=== PATIENT | male | born 1945 | race Caucasian/White ===

== ENCOUNTER 2017-03-09 13:48 | Outpatient (CLI) | payer OTHER ==
[2017-03-09 19:28] LABS: BILIRUBIN,TOTAL 0.6 mg/dL (0.2-1.0); CALCIUM 9.4 mg/dL (8.5-10.3); CREATININE 1.5 mg/dL (0.6-1.2); POTASSIUM 4.6 mmol/L (3.5-5.0); TOTAL PROTEIN 7.4 g/dL (6.7-8.2)
[2017-03-09 19:29] LABS: BASOPHILS % (AUTO) 0.3 %; EOSINOPHILS # (AUTO) 0.1 10^3/uL (0.0-0.7); EOSINOPHILS % (AUTO) 1.1 %; HCT - HEMATOCRIT 40.2 % (42.0-52.0); HGB - HEMOGLOBIN 13.5 g/dL (14.0-18.0); LYMPHOCYTES # (AUTO) 1.3 10^3/uL (1.5-3.5); LYMPHOCYTES % (AUTO) 18.1 %; MEAN CORPUSCULAR HEMOGLOBIN 33.1 pg (27.0-31.0); MEAN CORPUSCULAR HGB CONC 33.6 g/dL (32.0-36.0); MEAN CORPUSCULAR VOLUME 98.7 fL (80.0-94.0); MEAN PLATELET VOLUME 8.4 fL (7.4-11.4); MONOCYTES # (AUTO) 0.4 10^3/uL (0.0-1.0); MONOCYTES % (AUTO) 6.1 %; NEUTROPHILS # (AUTO) 5.3 10^3/uL (1.5-6.6); NEUTROPHILS % (AUTO) 74.4 %; RED BLOOD COUNT 4.08 10^6/uL (4.70-6.10); RED CELL DISTRIBUTION WIDTH 13.9 % (12.0-15.0); UNCORRECTED WHITE BLOOD COUNT 7.2 x10^3/uL; WHITE BLOOD COUNT 7.2 x10^3/uL (4.8-10.8)
== END 2017-03-09 13:49 | disposition home or self-care (01) ==
LOC: LAB.F 13:48
PROVIDERS: ATTEND Physician Assistant Medical
DX: N28.9 Disorder of kidney and ureter, unspecified (principal); R97.20 Elevated prostate specific antigen [PSA]; D64.9 Anemia, unspecified; K30 Functional dyspepsia
CPT/HCPCS: 36415; 80053; 82150; 83690; 84153; 85025

== ENCOUNTER 2017-03-12 13:27 | Outpatient (CLI) | payer OTHER ==
--- NOTE | 2017-03-12 15:28 | XRAY Report ---
TWO VIEW CHEST: 03/12/2017 CLINICAL INDICATION: Smoking history. COMPARISON: 07/20/2013. FINDINGS: Frontal and lateral views of the chest demonstrate a normal cardiac silhouette. The lungs are clear. No effusion or pneumothorax is present. IMPRESSION: NORMAL CHEST, UNCHANGED. JOB #: [id number] EXT JOB #:[id number]
== END 2017-03-12 13:28 | disposition home or self-care (01) ==
LOC: DI.S 13:27
PROVIDERS: ATTEND Physician Assistant Medical
DX: F17.200 Nicotine dependence, unspecified, uncomplicated (principal)
CPT/HCPCS: 71020

== ENCOUNTER 2017-03-16 12:27 | Outpatient (CLI) | payer OTHER ==
[2017-03-16] MEDS ORDERED: IOPAMIDOL-300 100 ML VIAL IVP ONE (14:26)
--- NOTE | 2017-03-16 17:07 | CT Report ---
CT ABDOMEN WITH AND WITHOUT CONTRAST: 03/16/2017 CLINICAL INDICATION: Elevated pancreatic enzymes, dyspepsia, weight loss. TECHNIQUE: Axial CT images of the abdomen were obtained prior to and following 50 mL of Isovue-300 i ntravenously, due to patient's renal dysfunction. In accordance with CT protocol optimization, one or more of the following dose reduction techniques w ere utilized for this exam: automated exposure control, adjustment of mA and/or KV based on patient size, or use of iterative reconstructive technique. COMPARISON: 10/07/2012 FINDINGS: Limited evaluation of the lung bases is unremarkable. Abdomen: On the unenhanced images, there is no evidence of pancreatic calcification. The kidneys de monstrate cysts bilaterally. No nephrolithiasis is seen. Following contrast administration, the pancreas demonstrates homogeneous enhancement. There is no ev idence of pancreatic mass. No peripancreatic inflammation is seen. The liver, spleen, and adrenal g lands appear unremarkable. The patient is status post cholecystectomy. No bowel dilatation, free ga s, or free fluid is present. There are anterior abdominal wall hernias, containing fat and nonobstru cted loops of colon. Osseous structures demonstrate degenerative changes. IMPRESSION: NORMAL PANCREAS. NO EVIDENCE OF PANCREATIC MASS. NO EVIDENT COMPLICATION OF PANCREATIT IS. JOB #: [id number] EXT JOB #:[id number]
== END 2017-03-16 12:28 | disposition home or self-care (01) ==
LOC: DI 12:27
PROVIDERS: ATTEND Physician Assistant Medical
DX: R74.8 Abnormal levels of other serum enzymes (principal)
CPT/HCPCS: 74170; Q9967

== ENCOUNTER 2017-04-09 12:41 | Outpatient (CLI) | payer OTHER ==
[2017-04-09 19:18] LABS: PT - PROTHROMBIN TIME 11.3 secs (9.9-12.6)
== END 2017-04-09 12:42 | disposition home or self-care (01) ==
LOC: LAB.F 12:41
PROVIDERS: ATTEND Internal Medicine
DX: R63.4 Abnormal weight loss (principal); N28.9 Disorder of kidney and ureter, unspecified; K30 Functional dyspepsia; R97.20 Elevated prostate specific antigen [PSA]; D64.9 Anemia, unspecified; R74.8 Abnormal levels of other serum enzymes; F17.200 Nicotine dependence, unspecified, uncomplicated; R63.0 Anorexia; I10 Essential (primary) hypertension
CPT/HCPCS: 36415; 80053; 82150; 83690; 84153; 84443; 85025; 85610

== ENCOUNTER 2017-04-26 08:00 | Outpatient (CLI) | payer MEDICARE ==
[2017-04-27 17:55] LABS: TEST RESULT REPORT (())
== END 2017-04-26 08:01 | disposition home or self-care (01) ==
LOC: LAB.R 08:00
PROVIDERS: ATTEND Physician Assistant
DX: R63.0 Anorexia (principal); R68.81 Early satiety; R63.4 Abnormal weight loss
CPT/HCPCS: 81599; 82705; 83630; 87045; 87046; 87177; 87209; 87329; 87493

== ENCOUNTER 2017-05-12 07:27 | Day surgery (SDC) | payer MEDICARE, OTHER ==
[2017-05-12] MEDS ORDERED: LACTATED RINGERS 1,000 ML IV ONE (07:54)
[2017-05-12] MEDS ORDERED: fentaNYL 100 MCG/2 ML VIAL IVP ONE (08:35)
[2017-05-12] MEDS ORDERED: MIDAZOLAM 2 MG/2 ML VIAL IVP ONE (08:35)
--- NOTE | 2017-05-12 09:20 | PROCEDURE REPORT ---
DATE OF PROCEDURE: 05/12/2017 00:00:00 PROCEDURE PERFORMED: EGD with biopsy. ENDOSCOPIST: Marin Graham MD. PRIMARY CARE: Lalit Guevara MD. INDICATIONS: Anorexia, weight loss, diarrhea, history of elevated amylase, lipase. After informed consent was obtained, the patient placed in the left lateral decubitus position. The v ideo upper scope was placed in the oropharynx. The patient helped swallow into the esophagus. The eso phagus, stomach, and duodenum were carefully examined. On withdrawal, retroflexed view of the GE junc tion was negative. The scope was removed. The patient tolerated the procedure well. BLOOD LOSS: None. COMPLICATIONS: None. MEDICATIONS: Fentanyl 100 mcg, Versed 5 mg IV titration. TOTAL SEDATION TIME: 11 minutes. FINDINGS 1. Completely normal esophagus with well defined squamocolumnar junction. 2. Mild gastritis with erythema and edema throughout, particularly in the body and evidence of some a dherent hematin flecks. Biopsies taken to rule out Helicobacter. No clear erosions in the stomach, th ough may have been a couple that were very superficial. 3. Normal duodenal bulb and sweep. Biopsy taken to rule out celiac. We will recheck amylase and lipase today. He may need to be considered for endoscopic ultrasound. It is not entirely clear to me whether his diarrhea started after his right hemicolectomy, which occurre d with cholecystectomy and therefore he could have some degree of bile salt diarrhea. Repeat colonosc opy may be necessary for biopsies. We will discuss further after we get results of amylase and lipase . JOB #: [id number] EXT JOB #:[id number]
[2017-05-12 09:35] LABS: AMYLASE 139 U/L (28-100); LIPASE 48 U/L (22-51)
[2017-05-12 09:45] VITALS: BP 128/78
== END 2017-05-12 07:28 | disposition home or self-care (01) ==
LOC: SDS 07:27
PROVIDERS: ATTEND Internal Medicine Gastroenterology
PROC: 0DB98ZX Excision of Duodenum, Via Natural or Artificial Opening Endoscopic, Diagnostic (ICD-10-PCS; principal; 2017-05-12 08:30)
DX: K29.70 Gastritis, unspecified, without bleeding (principal); R19.7 Diarrhea, unspecified; R79.89 Other specified abnormal findings of blood chemistry; Z86.010 Personal history of colon polyps; D64.9 Anemia, unspecified; F17.200 Nicotine dependence, unspecified, uncomplicated
CPT/HCPCS: 36415; 43239; 82150; 83690; 88305; J7120

== ENCOUNTER 2017-06-03 13:07 | Outpatient (CLI) | payer MEDICARE ==
[2017-06-03 18:36] LABS: AMYLASE 166 U/L (28-100); LIPASE 49 U/L (22-51)
== END 2017-06-03 13:08 | disposition home or self-care (01) ==
LOC: LAB.F 13:07
PROVIDERS: ATTEND Physician Assistant
DX: R63.0 Anorexia (principal); R68.81 Early satiety; R63.4 Abnormal weight loss
CPT/HCPCS: 36415; 82150; 83690

== ENCOUNTER 2017-08-30 07:52 | Outpatient (CLI) | payer MEDICARE ==
[2017-08-30 12:12] LABS: BASOPHILS % (AUTO) 0.4 %; EOSINOPHILS # (AUTO) 0.1 10^3/uL (0.0-0.7); EOSINOPHILS % (AUTO) 1.9 %; HGB - HEMOGLOBIN 13.5 g/dL (14.0-18.0); LYMPHOCYTES # (AUTO) 1.3 10^3/uL (1.5-3.5); LYMPHOCYTES % (AUTO) 20.9 %; MEAN CORPUSCULAR HGB CONC 33.9 g/dL (32.0-36.0); MEAN CORPUSCULAR VOLUME 94.6 fL (80.0-94.0); MEAN PLATELET VOLUME 8.5 fL (7.4-11.4); MONOCYTES # (AUTO) 0.5 10^3/uL (0.0-1.0); NEUTROPHILS # (AUTO) 4.5 10^3/uL (1.5-6.6); NEUTROPHILS % (AUTO) 69.8 %; PLT - PLATELET COUNT 267 10^3/uL (130-450); RED BLOOD COUNT 4.22 10^6/uL (4.70-6.10); RED CELL DISTRIBUTION WIDTH 13.6 % (12.0-15.0); WHITE BLOOD COUNT 6.4 x10^3/uL (4.8-10.8)
[2017-08-30 12:34] LABS: ALBUMIN 3.8 g/dL (3.2-5.5); ALBUMIN/GLOBULIN RATIO 1.1 (1.0-2.2); ALKALINE PHOSPHATASE 45 IU/L (42-121); ALT ALANINE AMINOTRANSFERASE 21 IU/L (10-60); AMYLASE 180 U/L (28-100); AST ASPARTATE AMINOTRANSFERASE 21 IU/L (10-42); BILIRUBIN,TOTAL 0.6 mg/dL (0.2-1.0); BUN - BLOOD UREA NITROGEN 31 mg/dL (6-20); CALCIUM 8.9 mg/dL (8.5-10.3); CARBON DIOXIDE - CO2 25 mmol/L (21-32); CHLORIDE 100 mmol/L (101-111); CREATININE 1.7 mg/dL (0.6-1.2); GFR - MDRD 40 (>89); GLUCOSE 78 mg/dL (70-100); SODIUM 135 mmol/L (135-145); TOTAL PROTEIN 7.2 g/dL (6.7-8.2)
[2017-08-30 12:37] LABS: CRP - C-REACTIVE PROTEIN < 1.0 mg/dL (0-1.0)
[2017-08-30 12:44] LABS: HB2 TOTAL 14.4 g/dL; HEMOGLOBIN A1C 0.46 g/dL; HEMOGLOBIN A1C % 5.1 % (4.6-6.2)
== END 2017-08-30 07:53 | disposition home or self-care (01) ==
LOC: LAB.F 07:52
PROVIDERS: ATTEND Internal Medicine Gastroenterology
DX: R63.4 Abnormal weight loss (principal)
CPT/HCPCS: 36415; 80053; 81599; 82150; 82533; 82570; 83036; 84443; 85025; 86140

== ENCOUNTER 2017-09-07 13:53 | Outpatient (CLI) | payer MEDICARE ==
[2017-09-07 18:07] LABS: AMYLASE 162 U/L (28-100); LIPASE 53 U/L (22-51)
== END 2017-09-07 13:54 | disposition home or self-care (01) ==
LOC: LAB.F 13:53
PROVIDERS: ATTEND Internal Medicine Gastroenterology
DX: R68.81 Early satiety (principal); R74.8 Abnormal levels of other serum enzymes
CPT/HCPCS: 36415; 82150; 83690

== ENCOUNTER 2017-12-12 15:34 | Outpatient (CLI) | payer MEDICARE | END 2017-12-12 15:35 | disposition critical access hospital (66) | LOC: EMS 15:34 | PROVIDERS: ATTEND Surgery | DX: S69.92XA Unspecified injury of left wrist, hand and finger(s), initial encounter (principal); R55 Syncope and collapse; W01.0XXA Fall on same level from slipping, tripping and stumbling without subsequent striking against object, initial encounter; Y93.89 Activity, other specified; Y92.39 Other specified sports and athletic area as the place of occurrence of the external cause | CPT/HCPCS: A0425; A0427 ==

== ENCOUNTER 2017-12-12 16:01 | Emergency (ER) | payer MEDICARE ==
--- NOTE | 2017-12-12 17:52 | XRAY Report ---
EXAM: LEFT WRIST RADIOGRAPHY EXAM DATE: 12/12/2017 05:27 PM. CLINICAL HISTORY: Wrist pain COMPARISON: None. TECHNIQUE: 4 views. FINDINGS: Bones: There is comminuted fractures through the distal left radius with intra-articular extent. No e vidence of significant angulation to the fracture. There is fracture through the ulnar styloid. Joints: Radiocarpal articulation is grossly maintained. Soft Tissues: No unexpected soft tissue findings. IMPRESSION: There is comminuted, impacted fracture through the distal left radius with intra-articula r extent. Radiocarpal articulation is grossly maintained. There is fracture through the ulnar styloid . [facility] Referring Provider Line: [phone] SITE ID: [id number]
[2017-12-12] MEDS ORDERED: MORPHINE 10 MG/ML VIAL IVP STA (17:54)
--- NOTE | 2017-12-12 18:54 | ED Physician Documentation ---
PD HPI UPPER EXT INJURY - Stated complaint Stated Complaint: FALL/ L WRIST PX - Chief complaint Chief Complaint: Ext Problem - History obtained from History obtained from: Patient - History of Present Illness Location: Left, Wrist Type of injury: Fall Where injury occurred: Other (he was fencing at a gym, lost balance going backward, and fell, trying to catch his fall with left hand. Paina t wrist.) Timing - onset: Today Timing - duration: Minutes (30) Timing - details: Abrupt onset, Still present Improved by: Immobilization Worsened by: Moving, Palpating Associated symptoms: Numbness (mild in middle 3 fingers), Other (he felt lightheaded and was noted to have low BP briefly after the injury when he first sat up, and was having a lot of pain at the time. BP improved promptly and he is feeling okay regarding lightheaded.). No: Weakness Contributing factors: No: Anticoagulated, Prior ortho surgery Similar symptoms before: Has not had sx before Recently seen: Not recently seen Review of Systems Constitutional: denies: Fever, Chills Nose: denies: Rhinorrhea / runny nose, Congestion Throat: denies: Sore throat Cardiac: denies: Chest pain / pressure, Palpitations Respiratory: denies: Dyspnea, Cough PD PAST MEDICAL HISTORY - Past Medical History Cardiovascular: Hypertension Respiratory: None Neuro: None Endocrine/Autoimmune: None GI: None : None HEENT: None Psych: None Musculoskeletal: Gout Derm: None - Past Surgical History Past Surgical History: Yes General: Cholecystectomy, Colonoscopy HEENT: Tonsil/Adenoidectomy - Present Medications Home Medications: Ambulatory Orders Medication Instructions Recorded Confirmed Folic Acid 800 mcg PO DAILY 12/28/12 05/12/17 Allopurinol 100 mg PO DAILY 08/08/13 05/12/17 Amlodipine Besylate 10 mg PO DAILY 07/12/14 05/12/17 Lisinopril 40 mg PO DAILY 07/12/14 05/12/17 Multivitamin [Multivitamins] 1 tab PO DAILY 07/12/14 05/12/17 Iron Polysaccharide Complex [Ezfe 800 mg PO DAILY 05/12/17 05/12/17 200] Melatonin 1 mg PO ONCE PRN 05/12/17 05/12/17 HYDROcod/ACETAM 5/325 [Homer 5/325] 1 tab PO Q6H PRN #25 tablet 12/12/17 - Allergies Allergies/Adverse Reactions: Allergies Allergy/AdvReac Type Severity Reaction Status Date / Time No Known Drug Allergies Allergy Verified 08/08/13 11:01 - Social History Does the pt smoke?: No Smoking Status: Never smoker Does the pt drink ETOH?: Yes Does the pt have substance abuse?: No - Immunizations Immunizations are current?: Yes - POLST Patient has POLST: No PD ED PE NORMAL - Vitals Vital signs reviewed: Yes - General General: Alert and oriented X 3, Well developed/nourished, Other (appears in some pain with any slight movement of wrist. Splint kept on for now. ) - HEENT HEENT: Atraumatic - Neck Neck: Supple, no meningeal sign, No bony TTP, No adenopathy - Cardiac Cardiac: RRR, No murmur - Respiratory Respiratory: Clear bilaterally - Abdomen Abdomen: Soft, Non tender - Derm Derm: Normal color, Warm and dry - Extremities Extremities: Other (swelling and tenderness of left wrist. Normal color, pulses and cap refill at fingers/wrist. Slight decreased sensation to touch of middle fingers. ) - Neuro Neuro: Alert and oriented X 3, No motor deficit, Normal speech Eye Opening: Spontaneous Motor: Obeys Commands Verbal: Oriented GCS Score: 15 - Psych Psych: Normal mood, Normal affect Results - Vitals Vitals: Vital Signs - 24 hr 12/12/17 12/12/17 12/12/17 16:03 18:16 19:35 Temperature 36.4 C L Heart Rate 69 76 82 Respiratory 16 15 18 Rate Blood Pressure 134/81 H 155/91 H 142/89 H O2 Saturation 99 99 98 Oxygen O2 Source Room air - Rads (name of study) left wrist Radiology: Prelim report reviewed (comminuted distal radius fracture, articular , with some shortening. Minimal angulation. ), EMP read contemporaneously Procedures - General procedure General procedure: hematoma block with 6 ml Lidocaine, with good improvement in the pain. - Splint (location) left wrist Splint applied by: Tech Type of splint: Fiberglass, Sugar tong Other: Patient tolerated well, No complications, Neurovascular intact, Sling provided PD MEDICAL DECISION MAKING - ED course Complexity details: reviewed results, considered differential, d/w patient, d/w e business consultant (Dr. Franco, ortho here director of undergraduate admissions, [place] [facility] [place]. I talked with [facility] referral physician, who arranged appt and potential surgery tomorrow AM, but patient was unable to get ride for then (was to be 7:45 tomorrow), so patient given Ortho office number to call tomorrow to set up appt. ) Departure - Departure Disposition: 01 Home, Self Care Clinical Impression: Accidental fall Qualifiers: Encounter type: initial encounter Qualified Code(s): W19.XXXA - Unspecified fall, initial encounter Distal radius fracture, left Qualifiers: Encounter type: initial encounter Fracture type: closed Fracture morphology: Colles' Qualified Code(s): S52.532A - Colles' fracture of left radius, initial encounter for closed fracture Condition: Stable Record reviewed to determine appropriate education?: Yes Instructions: ED Fx Wrist General Follow-Up: Taylor Panchal PA-C [Primary Care Provider] - Prescriptions: HYDROcod/ACETAM 5/325 [Homer 5/325] 1 tab PO Q6H PRN #25 tablet PRN Reason: Pain Comments: Keep the splint on and rest and elevate the wrist often. Use the sling for support of the arm. Ice to the area periodically. Call the orthopedic office tomorrow to arrange a follow-up appointment and specify that you were here in the ER and need urgent follow-up evaluation. Use Tylenol or ibuprofen if needed for pains. Add hydrocodone if needed for worse pain. Discharge Date/Time: 12/12/17 19:58
[2017-12-12] MEDS ORDERED: HYDROcod/ACET 5/325 Prepack 4 PO STA (19:22)
[2017-12-12 19:35] VITALS: BP 142/89
== END 2017-12-12 19:58 | disposition home or self-care (01) ==
LOC: EDUNIT# → ED 16:01
DX: S52.532A Colles' fracture of left radius, initial encounter for closed fracture (principal); W18.30XA Fall on same level, unspecified, initial encounter; Y93.89 Activity, other specified; Y92.39 Other specified sports and athletic area as the place of occurrence of the external cause
CPT/HCPCS: 29105; 96374; 99284

== ENCOUNTER 2017-12-17 11:11 | Outpatient (CLI) | payer MEDICARE ==
[2017-12-17 17:41] LABS: BASOPHILS % (AUTO) 0.4 %; EOSINOPHILS # (AUTO) 0.1 10^3/uL (0.0-0.7); EOSINOPHILS % (AUTO) 1.2 %; HGB - HEMOGLOBIN 12.9 g/dL (14.0-18.0); LYMPHOCYTES # (AUTO) 1.1 10^3/uL (1.5-3.5); LYMPHOCYTES % (AUTO) 12.7 %; MEAN CORPUSCULAR HEMOGLOBIN 31.4 pg (27.0-31.0); MEAN CORPUSCULAR HGB CONC 32.6 g/dL (32.0-36.0); MEAN CORPUSCULAR VOLUME 96.3 fL (80.0-94.0); MONOCYTES # (AUTO) 0.7 10^3/uL (0.0-1.0); MONOCYTES % (AUTO) 8.3 %; NEUTROPHILS # (AUTO) 6.6 10^3/uL (1.5-6.6); NEUTROPHILS % (AUTO) 77.4 %; PLT - PLATELET COUNT 309 10^3/uL (130-450); RED BLOOD COUNT 4.11 10^6/uL (4.70-6.10); RED CELL DISTRIBUTION WIDTH 13.4 % (12.0-15.0); WHITE BLOOD COUNT 8.6 x10^3/uL (4.8-10.8)
[2017-12-17 18:03] LABS: CALCIUM 9.2 mg/dL (8.5-10.3); CREATININE 1.3 mg/dL (0.6-1.2)
== END 2017-12-17 11:12 | disposition home or self-care (01) ==
LOC: LAB.F 11:11
PROVIDERS: ATTEND Orthopaedic Surgery
DX: Z01.812 Encounter for preprocedural laboratory examination (principal); S52.532A Colles' fracture of left radius, initial encounter for closed fracture; S52.572A Other intraarticular fracture of lower end of left radius, initial encounter for closed fracture
CPT/HCPCS: 36415; 80048; 85025

== ENCOUNTER 2017-12-21 08:50 | Day surgery (SDC) | payer MEDICARE ==
[2017-12-21] MEDS ORDERED: ceFAZolin 2 GM/50 ML 2 GM/50 ML BAG IV ONE (09:05)
[2017-12-21] MEDS ORDERED: LACTATED RINGERS 1,000 ML IV ONE ×2 (09:23→12:40)
[2017-12-21] MEDS ORDERED: SUCCINYLCHOLINE 200 MG/10 ML VIAL IVP ONE (11:22)
[2017-12-21] MEDS ORDERED: fentaNYL 100 MCG/2 ML VIAL IVP ONE (11:22)
[2017-12-21] MEDS ORDERED: DEXAMETHASONE 4 MG/ML VIAL IVP ONE (11:22)
[2017-12-21] MEDS ORDERED: MIDAZOLAM 2 MG/2 ML VIAL IVP ONE (11:22)
[2017-12-21] MEDS ORDERED: LIDOCAINE-MPF 2% 5 ML VIAL IM ONE (11:22)
[2017-12-21] MEDS ORDERED: HYDROmorphone 1 MG/ML SYRINGE IVP ONE (11:22)
[2017-12-21] MEDS ORDERED: ONDANSETRON 4 MG/2 ML VIAL IVP ONE (11:22)
[2017-12-21] MEDS: ROPIVACAINE 0.5% PF 20 ML AMPULE ONE ×2 (12:10→12:18)
[2017-12-21] MEDS: fentaNYL 100 MCG/2 ML VIAL ONE ×2 (13:20→13:25)
[2017-12-21] MEDS ORDERED: ROPIVACAINE 0.5% PF 20 ML AMPULE ONE (13:50)
[2017-12-21] MEDS ORDERED: DEXAMETHASONE 4 MG/ML VIAL ONE (13:50)
[2017-12-21 14:48] VITALS: BP 128/76
--- NOTE | 2017-12-22 02:51 | OPERATIVE REPORT ---
DATE OF SERVICE: 12/21/2017 Physician: Kai Duncan MD PREOPERATIVE DIAGNOSIS: Extremely comminuted and displaced intraarticular fracture of the left distal radius with minimum greater than 10 separate bone fragments involved. POSTOPERATIVE DIAGNOSIS: Extremely comminuted and displaced intraarticular fracture of the left distal radius with minimum greater than 10 separate bone fragments involved. PROCEDURE PERFORMED: Volar plate open reduction internal fixation of the left distal radius. SURGEON: Kai Duncan MD ANESTHESIA: General by Raya Moeller CRNA. INDICATIONS FOR SURGERY: Arnulfo is a 72-year-old male who suffered a severely comminuted left wrist fracture in a fall on an outstretched arm. He was found in clinic to have severe shortening and displacement of his fracture and multiple comminuted fragments. The patient desired treatment in the form of surgical open reduction internal fixation with the understanding that anatomic baptism would not be feasible and it would be a salvage operation to try to restore some alignment and length and hopefully better function of the wrist as an ultimate outcome. FINDINGS AT SURGERY: The patient's fracture was indeed found to be severely comminuted with disruption of periosteum around fracture fragments and free floating fragments of bone. The articular surface was severely impacted and there was foreshortening of the fracture. The radial styloid fragment was multiple pieces and widely displaced. The patient's reduction gain was mostly done with direct vision without stripping anything but the volar surface of the volar radius and using a freer and K-wires and other tools to try to align it and an acceptable reduction and length baptism were achieved with difficulty. DESCRIPTION OF OPERATIVE PROCEDURE: The patient was taken to the operating room and was given a general anesthetic. A tourniquet was placed on the patient's upper arm. The forearm and hand were sterilely prepped and draped in a standard fashion. The patient's limb was operated with a tourniquet pressure of 250 mmHg. A volar radial incision was made directly over the flexor carpi radialis tendon. This was approximately 4-1/2 inches in length and taken through skin and subcutaneous tissue down to the tendon itself. The tendon was retracted and below this the incision was made through the underlying sheath down to the soft tissues where a very large rent and old hematoma had collected in the tissue of the volar wrist. The degree of comminution was immediately encountered with bone fragments that were small, free floating, extracted and saved by the side. The reduction was attempted both closed before surgery and then again a reduction attempt was made by levering fragments with pressure directly on the volar surface in direct pressure with traction and molding and a more suitable reduction could be gained but not entirely anatomic and definitely with some offset in the articular surface and dorsal angulation. The DVR plate was applied to the volar surface and adjusted for length and initial distal screw was placed on the ulnar aspect of the wrist trying to construct a stable column of the radius onto which the other fragments could be attached in a semi-congruous fashion. This was the goal, but it was very hard to achieve and during the course of reduction, various tools were utilized including K-wire insertion, heavy suture tags to reduce fragments and hold them in position. Ultimately, the plate was able to be secured both proximal and distal, with baptism of length of the bone and some offset and dorsal tilt of the radius. It was elected to accept this. It was my opinion that a more anatomic baptism was not feasible. So once this was achieved and C-arm images were obtained that were satisfactory, the wrist was flushed, tourniquet deflated and bleeding controlled. Closure was with interrupted Vicryl subcutaneous and Monocryl closure of skin with Steri-Strips applied. The patient had deep infiltration of the fracture site with Marcaine with epinephrine and sterile dressings and a well-padded sugar-tong splint were applied. The patient was taken to the recovery room in stable condition. ESTIMATED BLOOD LOSS: About 20 mL. COMPLICATIONS: None. COUNTS: Sponge and needle counts correct. TOTAL TOURNIQUET TIME: Approximately 1 hour at 250 mmHg. TD: 12/21/2017 15:30
== END 2017-12-21 08:51 | disposition home or self-care (01) ==
LOC: SDS 08:50
PROVIDERS: ATTEND Orthopaedic Surgery
PROC: 0PSJ04Z Reposition Left Radius with Internal Fixation Device, Open Approach (ICD-10-PCS; principal; 2017-12-21 10:00)
DX: S52.572A Other intraarticular fracture of lower end of left radius, initial encounter for closed fracture (principal); W01.0XXA Fall on same level from slipping, tripping and stumbling without subsequent striking against object, initial encounter; Y93.59 Activity, other involving other sports and athletics played individually; F17.290 Nicotine dependence, other tobacco product, uncomplicated
CPT/HCPCS: 25609; C1713; J0690; J7120

== ENCOUNTER 2018-03-11 12:24 | Outpatient (CLI) | payer MEDICARE ==
[2018-03-11 17:27] LABS: BASOPHILS % (AUTO) 0.4 %; EOSINOPHILS # (AUTO) 0.1 10^3/uL (0.0-0.7); EOSINOPHILS % (AUTO) 0.7 %; HGB - HEMOGLOBIN 13.9 g/dL (14.0-18.0); LYMPHOCYTES # (AUTO) 1.1 10^3/uL (1.5-3.5); LYMPHOCYTES % (AUTO) 14.8 %; MEAN CORPUSCULAR HEMOGLOBIN 32.2 pg (27.0-31.0); MEAN CORPUSCULAR HGB CONC 33.4 g/dL (32.0-36.0); MEAN CORPUSCULAR VOLUME 96.5 fL (80.0-94.0); MEAN PLATELET VOLUME 8.1 fL (7.4-11.4); MONOCYTES # (AUTO) 0.5 10^3/uL (0.0-1.0); MONOCYTES % (AUTO) 6.3 %; NEUTROPHILS # (AUTO) 5.7 10^3/uL (1.5-6.6); NEUTROPHILS % (AUTO) 77.8 %; PLT - PLATELET COUNT 288 10^3/uL (130-450); RED CELL DISTRIBUTION WIDTH 14.9 % (12.0-15.0); WHITE BLOOD COUNT 7.4 x10^3/uL (4.8-10.8)
== END 2018-03-11 12:25 | disposition home or self-care (01) ==
LOC: LAB.F 12:24
PROVIDERS: ATTEND Physician Assistant Medical
DX: D64.9 Anemia, unspecified (principal)
CPT/HCPCS: 36415; 85025

== ENCOUNTER 2018-04-01 13:54 | Outpatient (CLI) | payer MEDICARE ==
[2018-04-01 18:17] LABS: AMYLASE 165 U/L (28-100); LIPASE 50 U/L (22-51)
== END 2018-04-01 13:55 | disposition home or self-care (01) ==
LOC: LAB.F 13:54
PROVIDERS: ATTEND Internal Medicine
DX: R63.4 Abnormal weight loss (principal)
CPT/HCPCS: 36415; 82150; 83690

== ENCOUNTER 2018-06-15 11:41 | Outpatient (CLI) | payer MEDICARE ==
[2018-06-15 17:44] LABS: BASOPHILS # (AUTO) 0.1 10^3/uL (0.0-0.1); BASOPHILS % (AUTO) 0.7 %; EOSINOPHILS # (AUTO) 0.1 10^3/uL (0.0-0.7); EOSINOPHILS % (AUTO) 1.1 %; HGB - HEMOGLOBIN 12.5 g/dL (14.0-18.0); LYMPHOCYTES # (AUTO) 1.3 10^3/uL (1.5-3.5); MEAN CORPUSCULAR HEMOGLOBIN 31.9 pg (27.0-31.0); MEAN CORPUSCULAR HGB CONC 33.7 g/dL (32.0-36.0); MEAN CORPUSCULAR VOLUME 94.5 fL (80.0-94.0); MEAN PLATELET VOLUME 7.4 fL (7.4-11.4); MONOCYTES # (AUTO) 0.5 10^3/uL (0.0-1.0); MONOCYTES % (AUTO) 6.6 %; NEUTROPHILS # (AUTO) 5.3 10^3/uL (1.5-6.6); NEUTROPHILS % (AUTO) 73.6 %; PLT - PLATELET COUNT 584 10^3/uL (130-450); RED BLOOD COUNT 3.92 10^6/uL (4.70-6.10); RED CELL DISTRIBUTION WIDTH 13.5 % (12.0-15.0); WHITE BLOOD COUNT 7.2 x10^3/uL (4.8-10.8)
[2018-06-15 18:04] LABS: ALBUMIN 3.4 g/dL (3.2-5.5); ALBUMIN/GLOBULIN RATIO 0.8 (1.0-2.2); BILIRUBIN,TOTAL 0.3 mg/dL (0.2-1.0); CALCIUM 9.1 mg/dL (8.5-10.3); CREATININE 1.3 mg/dL (0.6-1.2); TOTAL PROTEIN 7.6 g/dL (6.7-8.2)
== END 2018-06-15 11:42 | disposition home or self-care (01) ==
LOC: LAB.F 11:41
PROVIDERS: ATTEND Physician Assistant Medical
DX: R42 Dizziness and giddiness (principal); I95.9 Hypotension, unspecified; N28.9 Disorder of kidney and ureter, unspecified
CPT/HCPCS: 36415; 80053; 85025

== ENCOUNTER 2018-09-05 12:07 | Outpatient (CLI) | payer MEDICARE ==
[2018-09-05 17:41] LABS: BASOPHILS % (AUTO) 0.4 %; EOSINOPHILS % (AUTO) 0.4 %; HGB - HEMOGLOBIN 11.9 g/dL (14.0-18.0); LYMPHOCYTES # (AUTO) 0.8 10^3/uL (1.5-3.5); LYMPHOCYTES % (AUTO) 9.5 %; MEAN CORPUSCULAR HEMOGLOBIN 31.1 pg (27.0-31.0); MEAN CORPUSCULAR VOLUME 94.4 fL (80.0-94.0); MEAN PLATELET VOLUME 6.9 fL (7.4-11.4); MONOCYTES # (AUTO) 0.4 10^3/uL (0.0-1.0); MONOCYTES % (AUTO) 5.5 %; NEUTROPHILS # (AUTO) 6.7 10^3/uL (1.5-6.6); NEUTROPHILS % (AUTO) 84.2 %; PLT - PLATELET COUNT 501 10^3/uL (130-450); RED BLOOD COUNT 3.81 10^6/uL (4.70-6.10)
[2018-09-05 17:52] LABS: CALCIUM 9.3 mg/dL (8.5-10.3); CREATININE 1.1 mg/dL (0.6-1.2)
== END 2018-09-05 12:08 | disposition home or self-care (01) ==
LOC: LAB.F 12:07
PROVIDERS: ATTEND Physician Assistant Medical
DX: N28.9 Disorder of kidney and ureter, unspecified (principal); D63.8 Anemia in other chronic diseases classified elsewhere
CPT/HCPCS: 36415; 80048; 85025

== ENCOUNTER 2018-11-03 15:15 | Outpatient (CLI) | payer MEDICARE ==
--- NOTE | 2018-11-03 16:12 | Ultrasound Report ---
Reason: HYPERTENSION BENIGN ESSENTIAL,TOBACCO USE,ACTIVE,H Procedure Date: 11/03/2018 Accession Number: [id number] / [id number] Procedure: US - Aorta Screening CPT Code: FULL RESULT: EXAM: AORTIC DOPPLER ULTRASOUND EXAM DATE: 11/03/2018 03:41 PM. CLINICAL HISTORY: Benign essential hypertension, smoker, rule out abdominal aortic aneurysm. COMPARISON: Abdominal pelvic CT 10/07/2012 ABDOMEN W/WO 03/16/2017 2:11 PM. TECHNIQUE: Real-time sonographic imaging of retroperitoneal vascular structures, including color-flow, Doppler flow and spectral analysis was performed by the academic adviser. Multiple sales promotion representative static images were saved for review. FINDINGS: Aorta: The abdominal aorta was adequately visualized. No evidence for abdominal aortic aneurysm. Atherosclerotic plaque is present with the largest focus measuring 2.4 cm about the posterior wall but causing no significant stenosis. Aortic measurements are as follows. Proximal: 2.8 cm. Mid: 2.17 m. Distal: 2.1 cm. Iliac Vessels: The visualized proximal common iliac arteries are normal in caliber. Other: None. IMPRESSION: 1. No abdominal aortic aneurysm. 2. Mild arthroscopic plaque. [facility]
== END 2018-11-03 15:16 | disposition home or self-care (01) ==
LOC: DI 15:15
PROVIDERS: ATTEND Physician Assistant Medical
DX: I10 Essential (primary) hypertension (principal); Z72.0 Tobacco use; E78.5 Hyperlipidemia, unspecified
CPT/HCPCS: 76706

== ENCOUNTER 2019-01-27 12:00 | Outpatient (CLI) | payer MEDICARE | END 2019-01-27 12:01 | disposition home or self-care (01) | LOC: LAB.F 12:00 | PROVIDERS: ATTEND Physician Assistant Medical | DX: M10.9 Gout, unspecified (principal) | CPT/HCPCS: 36415; 84550 ==

== ENCOUNTER 2019-09-07 09:13 | Day surgery (SDC) | payer MEDICARE ==
[2019-09-07] MEDS ORDERED: LACTATED RINGERS 1,000 ML IV ONE ×2 (09:51→12:14)
[2019-09-07] MEDS ORDERED: LIDO GARGLE 30 ML BOTTLE ONE (11:14)
[2019-09-07] MEDS ORDERED: fentaNYL 250 MCG/5 ML VIAL IVP ONE (11:25)
[2019-09-07] MEDS ORDERED: LIDO GARGLE 30 ML BOTTLE PO ONE (11:25)
[2019-09-07] MEDS ORDERED: MIDAZOLAM 2 MG/2 ML VIAL IVP ONE (11:25)
[2019-09-07 12:47] VITALS: BP 116/76
== END 2019-09-07 09:14 | disposition home or self-care (01) ==
LOC: SDS 09:13
PROVIDERS: ATTEND Surgery
PROC: 0DB68ZX Excision of Stomach, Via Natural or Artificial Opening Endoscopic, Diagnostic (ICD-10-PCS; 2019-09-07)
PROC: 0DB48ZX Excision of Esophagogastric Junction, Via Natural or Artificial Opening Endoscopic, Diagnostic (ICD-10-PCS; 2019-09-07)
PROC: 0DJD8ZZ Inspection of Lower Intestinal Tract, Via Natural or Artificial Opening Endoscopic (ICD-10-PCS; principal; 2019-09-07 10:45)
PROC: 0DB98ZX Excision of Duodenum, Via Natural or Artificial Opening Endoscopic, Diagnostic (ICD-10-PCS; 2019-09-07 10:45)
DX: Z12.11 Encounter for screening for malignant neoplasm of colon (principal); R19.5 Other fecal abnormalities; K57.30 Diverticulosis of large intestine without perforation or abscess without bleeding; K64.8 Other hemorrhoids; Z86.010 Personal history of colon polyps; K29.80 Duodenitis without bleeding; K31.7 Polyp of stomach and duodenum; I10 Essential (primary) hypertension; D64.9 Anemia, unspecified; F17.290 Nicotine dependence, other tobacco product, uncomplicated
CPT/HCPCS: 43239; A9270; G0105; J3010; J7120

== ENCOUNTER 2020-01-30 09:04 | Outpatient (CLI) | payer MEDICARE ==
[2020-01-30 14:42] LABS: BASOPHILS % (AUTO) 0.6 %; EOSINOPHILS # (AUTO) 0.1 10^3/uL (0.0-0.7); EOSINOPHILS % (AUTO) 0.9 %; HGB - HEMOGLOBIN 14.6 g/dL (14.0-18.0); LYMPHOCYTES # (AUTO) 1.4 10^3/uL (1.5-3.5); LYMPHOCYTES % (AUTO) 20.7 %; MEAN CORPUSCULAR HEMOGLOBIN 32.7 pg (27.0-31.0); MEAN CORPUSCULAR HGB CONC 32.8 g/dL (32.0-36.0); MEAN CORPUSCULAR VOLUME 99.8 fL (80.0-94.0); MEAN PLATELET VOLUME 10.3 fL (7.4-11.4); MONOCYTES # (AUTO) 0.5 10^3/uL (0.0-1.0); MONOCYTES % (AUTO) 7.1 %; NEUTROPHILS # (AUTO) 4.8 10^3/uL (1.5-6.6); NEUTROPHILS % (AUTO) 70.4 %; PLT - PLATELET COUNT 288 10^3/uL (130-450); RED BLOOD COUNT 4.46 10^6/uL (4.70-6.10); RED CELL DISTRIBUTION WIDTH 13.7 % (12.0-15.0); WHITE BLOOD COUNT 6.9 x10^3/uL (4.8-10.8)
[2020-01-30 14:57] LABS: ALBUMIN 3.9 g/dL (3.2-5.5); ALKALINE PHOSPHATASE 52 IU/L (42-121); ALT ALANINE AMINOTRANSFERASE 19 IU/L (10-60); AST ASPARTATE AMINOTRANSFERASE 16 IU/L (10-42); BILIRUBIN,TOTAL 0.5 mg/dL (0.2-1.0); BUN - BLOOD UREA NITROGEN 17 mg/dL (6-20); CARBON DIOXIDE - CO2 30 mmol/L (21-32); CHLORIDE 102 mmol/L (101-111); CHOL/HDL RATIO 2.2 (<5.0); CHOLESTEROL 209 mg/dL; CREATININE 1.2 mg/dL (0.6-1.2); GLUCOSE 93 mg/dL (70-100); HDL CHOLESTEROL 95 mg/dL; LDL CHOLESTEROL,CALCULATED 92 mg/dL; SODIUM 138 mmol/L (135-145); TOTAL PROTEIN 7.9 g/dL (6.7-8.2); VLDL CHOLESTEROL 22 mg/dL
== END 2020-01-30 09:05 | disposition home or self-care (01) ==
LOC: LAB.S 09:04
PROVIDERS: ATTEND Physician Assistant
DX: Z00.00 Encounter for general adult medical examination without abnormal findings (principal); D63.8 Anemia in other chronic diseases classified elsewhere; N28.9 Disorder of kidney and ureter, unspecified; E78.5 Hyperlipidemia, unspecified; Z79.899 Other long term (current) drug therapy
CPT/HCPCS: 36415; 80053; 80061; 83721; 85025

== ENCOUNTER 2021-06-06 08:47 | Outpatient (CLI) | payer MEDICARE ==
--- NOTE | 2021-06-09 08:21 | Ultrasound Report ---
LIMITED ULTRASOUND OF LEFT BREAST: 06/06/2021 CLINICAL: Focal left breast pain. Gynecomastia. Comparison is made to exam dated: 06/06/2021 mammogram - [facility]. Color flow and real-time ultrasound of the left breast retroareolar were performed. Cordero scale image s of the real-time examination were reviewed. There is a benign irregular area of fibroglandular tissue in the left breast central to the nipple in the retroareolar region. This irregular area of fibroglandular tissue is hypoechoic. This correlat es to the reported pain. Color flow imaging demonstrates that there is no increase in vascularity. No mass or fluid collection. IMPRESSION: BENIGN There is no sonographic evidence of malignancy. Left breast retroareolar gynecomastia. No mass or fluid collection. No hyperemia to suggest mastitis. Exam findings were conveyed to the patient. Patient is advised to monitor for significant change. Cli nical follow-up is recommended. This exam was interpreted at Station ID: [id number]. Electronically Signed By: Tahir Keller M.D. slc/:06/06/2021 10:32:36 Ultrasound BI-RADS: 2 Benign BI-RADS CATEGORY: (2) - 2 Unspecified - other recall n/a LATERALITY: (B)
--- NOTE | 2021-06-09 08:21 | Mammography Report ---
MALE BILATERAL DIGITAL DIAGNOSTIC MAMMOGRAM 3D/2D: 06/06/2021 CLINICAL: Diffuse left breast pain. Baseline mammogram. No prior exams were available for comparison. There is a 3 cm irregular area of fibroglandular tissue in the right breast central to the nipple in the retroareolar region. There is a 3.8 cm irregular area of fibroglandular tissue in the left breast central to the nipple in the retroareolar region. No other significant masses or calcifications are seen in either breast. IMPRESSION: INCOMPLETE: NEEDS ADDITIONAL IMAGING EVALUATION Bilateral retroareolar gynecomastia, left greater than right. Patient report left breast swelling and marked pain. A precautionary targeted left breast ultrasound is recommended and will immediately follow. This exam was interpreted at Station ID: [id number]. NOTE: For mammograms, a report in lay terms will be sent to the patient. Approximately 15% of breast malignancies will not be visualized mammographically. In the management of a palpable breast mass, a negative mammogram must not discourage biopsy of a clinically suspicious lesion. Electronically Signed By: Tahir Keller M.D. slc/:06/06/2021 09:35:02 ACR BI-RADS Category 0: Incomplete 3340F PARENCHYMAL PATTERN: (F) - The breast(s) demonstrate(s) diffuse fatty replacement. BI-RADS CATEGORY: (0) - 0 Ultrasound [id number] Immediate follow-up LATERALITY: (B)
== END 2021-06-06 08:48 | disposition home or self-care (01) ==
LOC: DI 08:47
PROVIDERS: ATTEND Emergency Medicine
DX: N62 Hypertrophy of breast (principal)

== ENCOUNTER 2021-06-16 08:00 | Outpatient (CLI) | payer MEDICARE ==
--- NOTE | 2021-06-16 13:21 | XRAY Report ---
PROCEDURE: Abdomen Acute INDICATIONS: ABDOMINAL PAIN RIGHT UPPER QUADRANT TECHNIQUE: One view chest and two views of the abdomen were acquired. COMPARISON: None FINDINGS: Surgical changes and devices: Cholecystectomy clips, probable bowel resection clips in the right abdo men.. Chest: Lungs are clear. Heart size is normal. No pleural effusions. No pneumoperitoneum. Abdomen: Bowel gas pattern is normal. No suspicious calcifications. Visualized solid organ contour s appear normal. Bones: No suspicious bony lesions. Bilateral degenerative hip changes, left greater than right. IMPRESSION: 1. No evidence of acute pulmonary process. 2. No evidence of acute abdominal process. Reviewed by: Edmond Arredondo MD on 06/16/2021 1:20 PM [facility] Approved by: Edmond Arredondo MD on 06/16/2021 1:20 PM [facility] Station ID: [id number]
[2021-06-16 20:00] LABS: BASOPHILS % (AUTO) 0.4 %; EOSINOPHILS % (AUTO) 0.6 %; HGB - HEMOGLOBIN 13.4 g/dL (14.0-18.0); LYMPHOCYTES # (AUTO) 1.4 10^3/uL (1.5-3.5); LYMPHOCYTES % (AUTO) 19.7 %; MEAN CORPUSCULAR HEMOGLOBIN 32.5 pg (27.0-31.0); MEAN CORPUSCULAR HGB CONC 32.7 g/dL (32.0-36.0); MEAN CORPUSCULAR VOLUME 99.5 fL (80.0-94.0); MEAN PLATELET VOLUME 10.3 fL (7.4-11.4); MONOCYTES # (AUTO) 0.5 10^3/uL (0.0-1.0); MONOCYTES % (AUTO) 6.7 %; NEUTROPHILS # (AUTO) 5.1 10^3/uL (1.5-6.6); NEUTROPHILS % (AUTO) 72.2 %; PLT - PLATELET COUNT 270 10^3/uL (130-450); RED BLOOD COUNT 4.12 10^6/uL (4.70-6.10); RED CELL DISTRIBUTION WIDTH 14.1 % (12.0-15.0); WHITE BLOOD COUNT 7.1 x10^3/uL (4.8-10.8)
[2021-06-16 20:20] LABS: BILIRUBIN,URINE NEGATIVE (NEGATIVE); GLUCOSE, URINE (UA) NEGATIVE (NEGATIVE); KETONES,URINE (UA) NEGATIVE (NEGATIVE); LEUKOCYTE ESTERASE, URINE NEGATIVE (NEGATIVE); NITRITE,URINE NEGATIVE (NEGATIVE); OCCULT BLOOD,URINE SMALL (NEGATIVE); PROTEIN,URINE NEGATIVE (NEGATIVE); UROBILINOGEN,URINE 0.2 (NORMAL) E.U./dL (NORMAL)
[2021-06-16 20:26] LABS: ALBUMIN 3.8 g/dL (3.2-5.5); ALBUMIN/GLOBULIN RATIO 0.9 (1.0-2.2); BILIRUBIN,TOTAL 0.5 mg/dL (0.2-1.0); CALCIUM 9.6 mg/dL (8.5-10.3); CREATININE 1.4 mg/dL (0.6-1.2); POTASSIUM 4.1 mmol/L (3.5-5.0)
[2021-06-16 20:29] LABS: BACTERIA,URINE None Seen /HPF (None Seen); CLARITY,URINE CLEAR (CLEAR); RBC,URINE 0-5 /HPF (0-5); SQUAMOUS EPITHELIAL CELL,UR NONE SEEN (<= Few); WBC,URINE 0-3 /HPF (0-3)
== END 2021-06-16 23:59 | disposition home or self-care (01) ==
LOC: DI.S 08:00
PROVIDERS: ATTEND Physician Assistant Medical
DX: R10.11 Right upper quadrant pain (principal)
CPT/HCPCS: 36415; 80053; 81001; 82150; 83690; 85025; 87086

== ENCOUNTER 2021-06-17 09:34 | Emergency (ER) | payer MEDICARE ==
[2021-06-17 10:31] LABS: BILIRUBIN,URINE NEGATIVE (NEGATIVE); GLUCOSE, URINE (UA) NEGATIVE (NEGATIVE); KETONES,URINE (UA) NEGATIVE (NEGATIVE); LEUKOCYTE ESTERASE, URINE NEGATIVE (NEGATIVE); NITRITE,URINE NEGATIVE (NEGATIVE); OCCULT BLOOD,URINE SMALL (NEGATIVE); PH,URINE 5.5 PH (5.0-7.5); PROTEIN,URINE NEGATIVE (NEGATIVE); UROBILINOGEN,URINE 0.2 (NORMAL) E.U./dL (NORMAL)
[2021-06-17 10:38] LABS: CLARITY,URINE CLEAR (CLEAR)
--- NOTE | 2021-06-17 10:41 | CT Report ---
PROCEDURE: Abdomen/Pelvis WO INDICATIONS: R flank pain, h/o kidney stones TECHNIQUE: Noncontrast 5 mm thick sections acquired from the diaphragms to the symphysis. 5 mm coronal and sagi ttal reformats were then performed. For radiation dose reduction, the following was used: automated exposure control, adjustment of mA and/or kV according to patient size. COMPARISON: CT abdomen and pelvis 03/16/2017. FINDINGS: Image quality: Excellent. ABDOMEN: Lung bases: Lung bases are clear. Respiratory motion. Calcified granuloma. No pleural effusion. Hear t size is normal. Solid organs: Liver and spleen are normal in size. Small cyst in the left liver. Gallbladder is michell gically absent. Pancreas is normal in contours. No adrenal nodules. Kidneys are normal in size, wi thout hydronephrosis or nephrolithiasis. Multiple small low-density cysts bilaterally. Suspect peripe lvic cysts. Peritoneum and bowel: Unenhanced bowel loops demonstrate normal wall thickness and caliber. Right pa rtial colectomy. Diverticulosis. No free fluid or air. Nodes and vessels: No retroperitoneal or mesenteric adenopathy by size criteria. Aorta and inferior vena cava are normal in caliber. Miscellaneous: Ventral abdominal wall hernias containing fat. A periumbilical hernia as a loop of bow el at the hernia neck. PELVIS: Genitourinary: Bladder wall thickness is normal. Miscellaneous: Fat-containing inguinal hernias.. Bones: No suspicious bony lesions. No vertebral body compression fractures. IMPRESSION: 1. No hydronephrosis. No kidney stones. 2. No bowel obstruction. No free fluid. 3. Ventral abdominal wall hernia with bowel near the hernia neck. Reviewed by: Tahir Keller MD on 06/17/2021 10:40 AM [facility] Approved by: Tahir Keller MD on 06/17/2021 10:40 AM [facility] Station ID: [id number]
[2021-06-17 10:48] LABS: BACTERIA,URINE Few /HPF (None Seen); RBC,URINE 0-5 /HPF (0-5); SQUAMOUS EPITHELIAL CELL,UR FEW Squamous (<= Few); WBC,URINE 0-3 /HPF (0-3)
--- NOTE | 2021-06-17 11:38 | ED Physician Documentation ---
PD HPI ABD PAIN - Stated complaint Stated Complaint: RT FLANK PAIN - Chief complaint Chief Complaint: Abd Pain - History obtained from History obtained from: Patient - Additional information Additional information: Pt c/o R flank/abd pain for the past several days. No N/V/stool changes. No fever/chills. No dysuria/hematuria. Pt is a competitive fencer, and did notice some R back pain last week after some more forceful moves. He states that fencing is very physically rough, so he is constantly getting jabbed and pummeled. Pt has no h/o kidney stones, but is worried about this. No h/o gallstones or appendicitis. Certain movements and positions make pain worse. No other complaints. Review of Systems Ten Systems: 10 systems reviewed and negative Constitutional: reports: Reviewed and negative Eyes: reports: Reviewed and negative Ears: reports: Reviewed and negative Nose: reports: Reviewed and negative Throat: reports: Reviewed and negative Cardiac: reports: Reviewed and negative Respiratory: reports: Reviewed and negative GI: reports: Abdominal Pain. denies: Nausea, Vomiting, Constipation, Diarrhea, Bloody / black stool : reports: Reviewed and negative Skin: reports: Reviewed and negative Musculoskeletal: reports: Reviewed and negative Neurologic: reports: Reviewed and negative Psychiatric: reports: Reviewed and negative Endocrine: reports: Reviewed and negative Immunocompromised: reports: Reviewed and negative PD PAST MEDICAL HISTORY - Past Medical History Cardiovascular: Hypertension, Arrhythmia Respiratory: None Endocrine/Autoimmune: None GI: None : None HEENT: None Psych: Depression Musculoskeletal: Gout Derm: None - Past Surgical History Past Surgical History: Yes General: Cholecystectomy, Appendectomy, Colonoscopy HEENT: Tonsil/Adenoidectomy - Present Medications Home Medications: Ambulatory Orders Medication Instructions Recorded Confirmed Folic Acid 1 tab PO DAILY 12/28/12 12/21/17 allopurinoL [Allopurinol] 1 - 2 tab PO DAILY 08/08/13 12/21/17 Amlodipine Besylate 10 mg PO DAILY 07/12/14 12/21/17 Multivitamin [Multivitamins] 1 tab PO DAILY 07/12/14 12/21/17 Calcium Carbonate/Vitamin D3 1 each PO 09/07/19 [Calcium 500-Vit D3 200 Tablet] Cholecalciferol (Vitamin D3) 1,250 mcg PO 09/07/19 [Vitamin D3] - Allergies Allergies/Adverse Reactions: Allergies Allergy/AdvReac Type Severity Reaction Status Date / Time No Known Drug Allergies Allergy Verified 06/17/21 09:49 - Social History Does the pt smoke?: No Smoking Status: Never smoker Does the pt drink ETOH?: Yes Does the pt have substance abuse?: No - Immunizations Immunizations are current?: Yes - POLST Patient has POLST: No PD ED PE NORMAL - Vitals Vital signs reviewed: Yes - General General: Alert and oriented X 3, No acute distress, Well developed/nourished - HEENT HEENT: Atraumatic, PERRL, EOMI, Moist mucous membranes - Neck Neck: Supple, no meningeal sign - Cardiac Cardiac: RRR, No murmur, Strong equal pulses - Respiratory Respiratory: No respiratory distress, Clear bilaterally - Abdomen Abdomen: Soft, Non distended, Other (Moderate R flank and RUQ tenderness. No rebound or guarding. No evidence externally of trauma.) - Derm Derm: Warm and dry - Extremities Extremities: No deformity - Neuro Neuro: Alert and oriented X 3 - Psych Psych: Normal mood, Normal affect Results - Vitals Vitals: Vital Signs - 24 hr 06/17/21 06/17/21 09:49 11:46 Temperature 36.8 C 36.5 C Heart Rate 70 69 Respiratory 18 14 Rate Blood Pressure 134/58 H 130/55 L O2 Saturation 100 100 Oxygen O2 Source Room air - Labs Labs: Laboratory Tests 06/17/21 10:23 Urine Color YELLOW Urine Clarity CLEAR Urine pH 5.5 Ur Specific [place] 1.025 Urine Protein NEGATIVE Urine Glucose (UA) NEGATIVE Urine Ketones NEGATIVE Urine Occult Blood SMALL H Urine Nitrite NEGATIVE Urine Bilirubin NEGATIVE Urine Urobilinogen 0.2 (NORMAL) Ur Leukocyte Esterase NEGATIVE Urine RBC 0-5 Urine WBC 0-3 Ur Squamous Epith Cells FEW Squamous Urine Bacteria Few Ur Microscopic Review INDICATED Urine Culture Comments NOT INDICATED - Rads (name of study) CT abd/pelvis Radiology: Final report received, EMP read indepedently, See rad report (ventral abdominal hernia) PD MEDICAL DECISION MAKING - ED course Complexity details: reviewed results, re-evaluated patient, considered differential, d/w patient ED course: Pt was worked up with labs and UA, and found to have a small amount of blood in his urine. CT abd/pelvis showed a ventral abdominal hernia. I d/w pt that with the strenuousness of fencing, he may have developed or exacerbated the abdominal wall hernia. It is also possible that the pt's back issues are causing some sense of abdominal pain. Muscular strain is also a possibility. CT does not show evidence of urinary calculi, appendicitis, or gall stones/cholecystitis. We have discussed the need for follow up with surgery to discuss pros and cons of hernia repair, and with his PCP to discuss MR of the spine. Pt does not desire analgesia at this time, as he feels it is a "Band-Aid". We have discussed the usual indications for return. Departure - Departure Disposition: 01 Home, Self Care Clinical Impression: Abdominal wall hernia Abdominal pain Qualifiers: Abdominal location: right upper quadrant Qualified Code(s): R10.11 - Right upper quadrant pain Back pain Qualifiers: Back pain location: thoracic back pain Chronicity: acute Back pain laterality: right Qualified Code(s): M54.6 - Pain in thoracic spine Condition: Stable Instructions: Hernia, ED Neck Back Pain General, ED Abdominal Pain Unkn Cause Male Comments: Your CT scan does not show a kidney stone or any problems with your organs today. You do have an abdominal wall hernia which may be responsible for some of the pain that you are feeling. You have also had back pain and sometimes this can translate into abdominal pain as well. It is important that you follow-up with both your doctor and your and a surgeon to discuss both MRI of your back and treatment of your hernia. It is advisable also to take at least a week off of sensing to see if the pain and irritation settle down and to avoid making her hernia worse. In the meantime, you may use an abdominal binder to help support your abdominal wall and back more. This will help to prevent worsening of the hernia. Discharge Date/Time: 06/17/21 11:52
[2021-06-17 11:46] VITALS: BP 130/55
== END 2021-06-17 11:52 | disposition home or self-care (01) ==
LOC: ED 09:34
DX: K43.9 Ventral hernia without obstruction or gangrene (principal); R10.11 Right upper quadrant pain; M54.6 Pain in thoracic spine
CPT/HCPCS: 36415; 81001; 81003; 87086; 99284

== ENCOUNTER 2021-07-21 10:43 | Inpatient (IN) | payer MEDICARE ==
[~2021-07-21 10:43] MED LIST: CEFAZOLIN SODIUM IN 0.9 % NACL 2 GM/100 ML BAG IV ONE
[2021-07-21] MEDS ORDERED: LACTATED RINGERS 1,000 ML IV ONE ×2 (10:45→14:53)
[2021-07-21] MEDS ORDERED: LIDOCAINE MPF 2%-EPI 1:200000 20 ML VIAL ONE (11:00)
[2021-07-21] MEDS ORDERED: ceFAZolin 1 GM VIAL ONE (11:00)
[2021-07-21] MEDS ORDERED: BUPIVACAINE 0.5% PF 10 ML VIAL ONE (11:00)
--- NOTE | 2021-07-21 11:41 | ANESTHESIA ---
Pre-Anesthesia VS, & Labs - Diagnosis incisional hernia - Procedure laparoscopic incisional hernia repair Vital Signs: Temp Pulse Resp BP Pulse Ox 36.4 C L 85 16 162/91 H 98 07/21/21 10:56 07/21/21 10:56 07/21/21 10:56 07/21/21 10:56 07/21/21 10:56 Height: 5 ft 9 in Weight (kg): 77 kg Body Mass Index: 25.0 BMI Classification: Overweight - NPO >8 hours Home Medications and Allergies Home Medications: Ambulatory Orders Ascorbic Acid [Vitamin C] 500 mg PO DAILY 07/14/21 Calcium Carbonate [Calcium] 600 mg PO DAILY 07/14/21 Cyanocobalamin (Vitamin B-12) [Vitamin B-12] 1,000 mcg PO DAILY 07/14/21 Lisinopril [Zestril] 20 mg PO DAILY 07/14/21 Folic Acid 1 tab PO DAILY 12/28/12 allopurinoL [Allopurinol] 1 - 2 tab PO DAILY 08/08/13 Amlodipine Besylate 10 mg PO DAILY 07/12/14 Cholecalciferol (Vitamin D3) [Vitamin D3] 1,250 mcg PO DAILY 09/07/19 Ascorbic Acid [Vitamin C] 500 mg PO DAILY 07/14/21 Calcium Carbonate [Calcium] 600 mg PO DAILY 07/14/21 Cyanocobalamin (Vitamin B-12) [Vitamin B-12] 1,000 mcg PO DAILY 07/14/21 Lisinopril [Zestril] 20 mg PO DAILY 07/14/21 Allergies/Adverse Reactions: Allergies Allergy/AdvReac Type Severity Reaction Status Date / Time No Known Drug Allergies Allergy Verified 06/17/21 09:49 Anes History & Medical History - Anesthetic History Anesthesia Complications: reports: No previous complications - Medical History Cardiovascular: reports: Hypertension, Arrhythmia Pulmonary: reports: None Gastrointestinal: reports: Colon polyps Urinary: reports: Benign prostate hypertrophy Musculoskeletal: reports: Gout Endocrine/Autoimmune: reports: None Skin: reports: None, Other Smoking Status: Never smoker History of Cancer?: No - Surgical History General: reports: Cholecystectomy, Appendectomy, Bowel surgery, Colonoscopy Eyes Ears Nose Throat (EENT): reports: Tonsil/Adenoidectomy Exam General: Alert, Oriented x3 Dental: WNL Mouth Opening: Greater than 4 Fingerbreadths Mallampati classification: II Thyromental Distance: greater than 6 cm Respiratory: Lungs clear Cardiovascular: Regular rate, Normal S1, Normal S2 Plan Anesthesia Type: General, Transverse Abdominis Plane (TAP) Block Consent for Procedure(s) Verified and Reviewed: Yes Code Status: Attempt Resuscitation ASA classification: 2-Mild systemic disease Is this case an emergency?: No
[2021-07-21] MEDS ORDERED: PROPOFOL 200 MG/20 ML VIAL IVP ONE (11:45)
[2021-07-21] MEDS ORDERED: ROCURONIUM 50 MG/5 ML VIAL ONE ×2 (11:45→12:43)
[2021-07-21] MEDS ORDERED: ONDANSETRON 4 MG/2 ML VIAL ONE (11:45)
[2021-07-21] MEDS ORDERED: LIDOCAINE-MPF 2% 5 ML VIAL ONE (11:45)
[2021-07-21] MEDS ORDERED: fentaNYL 100 MCG/2 ML VIAL ONE ×3 (11:46→15:50)
[2021-07-21] MEDS ORDERED: MIDAZOLAM 2 MG/2 ML VIAL ONE (12:23)
[2021-07-21] MEDS ORDERED: BUPIVACAINE 0.5% PF 30 ML VIAL SUBQ ONE ×2 (12:32)
[2021-07-21] MEDS ORDERED: ceFAZolin 1 GM VIAL IR ONE (12:32)
[2021-07-21] MEDS ORDERED: LIDOCAINE MPF 2%-EPI 1:200000 20 ML VIAL SUBQ ONE ×2 (12:33)
[2021-07-21] MEDS ORDERED: ROPIVACAINE 0.5% PF 20 ML AMPULE ONE (12:47)
[2021-07-21] MEDS ORDERED: DEXAMETHASONE 4 MG/ML VIAL ONE ×2 (12:50→13:19)
[2021-07-21] MEDS ORDERED: SUGAMMADEX 200 MG/2 ML VIAL IVP ONE (13:52)
[2021-07-21] MEDS ORDERED: ACETAMINOPHEN 1,000 MG/100 ML 100 ML IV ONE (14:04)
[2021-07-21] MEDS ORDERED: KETOROLAC 30 MG/ML VIAL ONE (14:05)
--- NOTE | 2021-07-21 14:25 | OPERATIVE REPORT ---
Operative Report - General Procedure Date: 07/21/21 Planned Procedure: Laparoscopic ventral hernia repair Pre-Op Diagnosis: Ventral hernia with multiple defects within a healed incision Procedure Performed: 1. Lysis of adhesions 2. Ventral hernia repair- large Post Op Diagnosis: 15 x 7 cm ventral incisional hernia - Procedure Note Primary Surgeon: Dhruv Anesthesia Provider: DIANE Moeller Anesthesia Technique: General ET tube, Local, Regional block Pathology: None Estimated Blood Loss (mL): 100 Indications: Symptomatic incisional hernia Findings: 17 cm midline incision with multiple large defects Complications: None apparent - Other Other Information/Narrative: After obtaining informed consent, the patient is brought to the operating room and placed in the supine position on the operating table. Following successful induction of general endotracheal anesthesia, appropriate padding of all bony prominences, and placement of appropriate monitors, the abdomen was prepped and draped in the standard surgical fashion. A timeout was held per scope protocol. All elements of the surgical safety checklist were followed before, during, and after the procedure. We began the procedure by infiltrating a mixture of local anesthetics directly over the defect that had been the most uncomfortable for the patient.This was carried through the skin and subcutaneous tissue in the abdomen was entered directly.We encountered dense adhesions at the inferior aspect of this incision. We were able to clear enough to safely place a Sow balloon trocar. The abdomen was then insufflated to 15 mmHg pressure.The camera was placed in the abdominal cavity and we were able to create a window in the right upper quadrant for placement of a second 5 mm trocar. This was done after infiltration with local anesthetic. Looking into the right lower quadrant, and atraumatic grasper along with sharp dissection was used to successfullly perform adhesiolysis allo wing space for placement of the mesh.This process was continued in a circumferential fashion. On the left side, a third trocar was placed in the mid abdomen and a fourth in the left lower quadrant again in the direct vision of the camera. Again extensive adhesiolysis was undertaken to clear the abdominal wall and define each of the defects as well as to create space for placement of the mesh. We noted a moderate size defect just inferior to the umbilicus, a large defect in the middle of the incision in the midepigastrium which was the most troublesome area and then several other smaller defects.The ventral light ST mesh was chosen. A 20 x 25 cm portion was dipped in Ancef solution rolled and deployed into the abdominal cavity. The mesh was straightened and flattened in the abdominal cavity and pulled back up to the abdominal wall using the traction suture. Because of this epigastric defect was so close to the xiphoid process, I elected to create a small stab incision in this region and to tack the superior aspect of the mesh with a transabdominal suture to prevent migration inferiorly.I was sure to leave more than a 5 cm overlap from the largest defect.Using an absorbable tacker, the mesh was then tacked in a 360 degree fashion with tacks spaced approximately 1 cm apart along the periphery of the mesh implant.The positioning system structure was then removed through the left upper quadrant.Additional tacks were placed in a circumferential fashion to create a ring inside the one that had been previously placed.The repair was checked to be sure there were no overlapping areas or portions of mesh that could fold and create a problem.The trochars were then removed under direct vision. The 2 small incisions were closed with interrupted 0 Vicryl suture and skin clips were placed in all of the skin incisions. All sponge, needle, and instrument counts were correct at the conclusion of the case. The patient was allowed to wake from anesthesia without difficulty and taken to the postanesthesia care unit in good condition.
[2021-07-21] MEDS ORDERED: ONDANSETRON 4 MG/2 ML VIAL IVP PRN ×2 (14:32→15:13)
[2021-07-21] MEDS ORDERED: fentaNYL 100 MCG/2 ML VIAL IVP PRN (15:13)
[2021-07-21] MEDS ORDERED: ATROPINE ABBOJECT 1 MG/10 ML SYRINGE IVP PRN (15:13)
[2021-07-21] MEDS ORDERED: ePHEDrine 50 MG/ML VIAL IVP PRN (15:13)
[2021-07-21] MEDS ORDERED: METOCLOPRAMIDE 10 MG/2 ML VIAL IVP PRN (15:13)
[2021-07-21] MEDS ORDERED: MORPHINE 2 MG/ML CARPUJECT IVP PRN (15:13)
[2021-07-21] MEDS ORDERED: NALOXONE 0.4 MG/ML VIAL IVP PRN (15:13)
[2021-07-21] MEDS: HYDROmorphone 0.5 MG/0.5 ML SYRINGE IVP PRN ×5 (15:17→23:37)
[2021-07-21] MEDS ORDERED: LACTATED RINGERS 1,000 ML IV SCH (16:00)
--- NOTE | 2021-07-21 17:42 | ANESTHESIA POST OP EVALUATION ---
Anesthesia Post Eval - Post Anesthesia Eval Vitals: Last Vital Signs Temp 36.5 C 07/21/21 16:35 Pulse 81 07/21/21 16:35 Resp 18 07/21/21 16:35 BP 143/85 H 07/21/21 16:35 Pulse Ox 94 07/21/21 16:35 CV Function Including HR & BP: Stable Pain Control: Satisfactory Nausea & Vomiting: Negative Mental Status: Baseline Respiratory Status: Airway Patent Hydration Status: Satisfactory Anesthesia Complications: None
[2021-07-21] MEDS: ACETAMINOPHEN 1,000 MG/100 ML 100 ML IV SCH (20:04)
[2021-07-21] MEDS: oxyCODONE 5 MG TABLET PO PRN (20:05)
[2021-07-21] MEDS: ceFAZolin 2 GM in SODIUM CHLORIDE 0.9% 100ML 100 ML IV SCH (20:37)
[2021-07-21] MEDS: SODIUM CHLORIDE FLUSH 0.9% 10 ML SYRINGE IVP SCH (20:38)
[2021-07-21] MEDS: SODIUM CHLORIDE 0.9% 1,000 ML IV SCH (20:58)
[2021-07-22] MEDS: oxyCODONE 5 MG TABLET PO PRN ×3 (01:17→17:34)
[2021-07-22] MEDS: HYDROmorphone 0.5 MG/0.5 ML SYRINGE IVP PRN ×5 (04:02→16:55)
[2021-07-22] MEDS: SODIUM CHLORIDE 0.9% 1,000 ML IV SCH ×3 (05:01→23:41)
[2021-07-22] MEDS: SODIUM CHLORIDE FLUSH 0.9% 10 ML SYRINGE IVP SCH ×3 (07:50→16:22)
[2021-07-22] MEDS: ACETAMINOPHEN 1,000 MG/100 ML 100 ML IV SCH ×3 (07:50→13:57)
[2021-07-22] MEDS: ceFAZolin 2 GM in SODIUM CHLORIDE 0.9% 100ML 100 ML IV SCH (07:52)
[2021-07-22 08:46] LABS: BASOPHILS % (AUTO) 0.3 %; EOSINOPHILS # (AUTO) 0.3 10^3/uL (0.0-0.7); EOSINOPHILS % (AUTO) 2.8 %; HCT - HEMATOCRIT 46.8 % (42.0-52.0); HGB - HEMOGLOBIN 15.6 g/dL (14.0-18.0); LYMPHOCYTES # (AUTO) 0.4 10^3/uL (1.5-3.5); LYMPHOCYTES % (AUTO) 4.2 %; MEAN CORPUSCULAR HEMOGLOBIN 32.2 pg (27.0-31.0); MEAN CORPUSCULAR HGB CONC 33.3 g/dL (32.0-36.0); MEAN CORPUSCULAR VOLUME 96.5 fL (80.0-94.0); MEAN PLATELET VOLUME 9.9 fL (7.4-11.4); MONOCYTES # (AUTO) 0.5 10^3/uL (0.0-1.0); MONOCYTES % (AUTO) 5.3 %; NEUTROPHILS # (AUTO) 8.2 10^3/uL (1.5-6.6); NEUTROPHILS % (AUTO) 87.1 %; PLT - PLATELET COUNT 258 10^3/uL (130-450); RED BLOOD COUNT 4.85 10^6/uL (4.70-6.10); RED CELL DISTRIBUTION WIDTH 13.7 % (12.0-15.0); WHITE BLOOD COUNT 9.4 x10^3/uL (4.8-10.8)
[2021-07-22] MEDS: lisinopriL 20 MG TABLET PO SCH (09:11)
[2021-07-22] MEDS: MINERAL OIL 473 ML BOTTLE PO SCH (09:11)
[2021-07-22] MEDS: DOCUSATE SODIUM 100 MG CAPSULE PO SCH (09:11)
[2021-07-22] MEDS: PANTOPRAZOLE 40 MG TABLET PO SCH (09:12)
[2021-07-22] MEDS: allopurinoL 100 MG TABLET PO SCH (09:12)
[2021-07-22] MEDS: amLODIPine 5 MG TABLET PO SCH (09:12)
[2021-07-22] MEDS: NICOTINE 7 MG PATCH TOP SCH (09:14)
[2021-07-22 09:23] LABS: DIFFERENTIAL COMMENT MANUAL=AUTO DIFF; PLATELET ESTIMATE, MANUAL NORMAL (130-450,000) (NORMAL); PLATELET MORPHOLOGY NORMAL APPEARANCE (NORMAL); RBC MORPHOLOGY (MULTIPLE) NORMAL APPEARANCE (NORMAL); WBC MORPHOLOGY (MULTIPLE) NORMAL APPEARANCE (NORMAL)
[2021-07-22] MEDS: methocarbamoL 500 MG TABLET PO SCH ×2 (13:54→21:56)
[2021-07-22] MEDS: GABAPENTIN 300 MG CAPSULE PO SCH ×2 (13:54→21:57)
--- NOTE | 2021-07-22 14:53 | PROVIDER PROGRESS NOTE ---
Subjective - General Admit Date: 07/21/21 Procedure Date: 07/21/21 Post Op Days: 1 Procedure Performed: Laparoscopic ventral hernia repair - Review of Systems Wound/Incisions: positive: Healing well - Other Other Information/Narrative: Arnulfo did well overnight but this morning his regional block has worn off and he tells me nothing is working for the pain. He says every time he moves or coughs or take a deep breath he has excruciating pain. He has been given oxycodone Dilaudid Tylenol and Toradol and he says nothing is working. He denies any nausea he has passed flatus he says he is having too much pain to consider eating he had a couple of bites of breakfast and then refused lunch. Objective - Patient Data Reviewed Vital Signs: Yes Vital Signs: Vital Signs x48h Temp Pulse Resp BP Pulse Ox 07/22/21 11:25 36.5 C 115 H 18 126/82 H 97 07/22/21 07:35 37.1 C 94 18 154/82 H 97 Weight: Weight 07/20/21 07/21/21 07/22/21 23:59 23:59 23:59 Weight (kg) 77 kg Intake & Output: Intake and Output Totals x24h 07/20/21 07/21/21 07/22/21 23:59 23:59 23:59 Intake Total 700.895 7473.333 Output Total 675 725 Balance -660.318 4756.333 - Lab Results Lab Results: 07/22/21 08:41 Other Lab Results: Lab Results x24hrs 07/22/21 Range/Units 08:41 WBC 9.4 (4.8-10.8) x10^3/uL RBC 4.85 (4.70-6.10) 10^6/uL Hgb 15.6 (14.0-18.0) g/dL Hct 46.8 (42.0-52.0) % MCV 96.5 H (80.0-94.0) fL MCH 32.2 H (27.0-31.0) pg MCHC 33.3 (32.0-36.0) g/dL RDW 13.7 (12.0-15.0) % Plt Count 258 (130-450) 10^3/uL MPV 9.9 (7.4-11.4) fL Neut # (Auto) 8.2 H (1.5-6.6) 10^3/uL Lymph # (Auto) 0.4 L (1.5-3.5) 10^3/uL [place] # (Auto) 0.5 (0.0-1.0) 10^3/uL Eos # (Auto) 0.3 (0.0-0.7) 10^3/uL Baso # (Auto) 0.0 (0.0-0.1) 10^3/uL Absolute Nucleated RBC 0.00 x10^3/uL Band Neuts % (Manual) Not Reportable Abnorm Lymph % (Manual) Not Reportable Nucleated RBC % 0.0 /100WBC Neutrophils # (Manual) Not Reportable Lymphocytes # (Manual) Not Reportable Monocytes # (Manual) Not Reportable Eosinophils # (Manual) Not Reportable Basophils # (Manual) Not Reportable Differential Comment MANUAL=AUTO DIFF WBC Morphology NORMAL APPEARANCE (NORMAL) Platelet Estimate NORMAL (130-450,000) (NORMAL) Platelet Morphology NORMAL APPEARANCE (NORMAL) RBC Morph Micro Appear NORMAL APPEARANCE (NORMAL) - Current Medications Current Medications: Current Medications Generic Name Dose Route Start Last Admin Trade Name Freq PRN Reason Stop Dose Admin Allopurinol 100 mg 07/22/21 09:00 07/22/21 09:12 Allopurinol 100 Mg Tablet PO 100 mg DAILY ADELA Administration Amlodipine Besylate 10 mg 07/22/21 09:00 07/22/21 09:12 Amlodipine 5 Mg Tablet PO 10 mg DAILY ADELA Administration Docusate Sodium 200 mg 07/22/21 09:00 07/22/21 09:11 Docusate Sodium 100 Mg Capsule PO 200 mg DAILY ADELA Administration Gabapentin 300 mg 07/22/21 14:00 07/22/21 13:54 Gabapentin 300 Mg Capsule PO 300 mg BID ADELA Administration Hydromorphone HCl 0.5 mg 07/22/21 13:22 07/22/21 13:56 Hydromorphone 0.5 Mg/0.5 Ml Syringe IVP 0.5 mg Q1H PRN Administration PAIN Sodium Chloride 1,000 mls @ 100 mls/hr 07/21/21 15:00 07/22/21 13:52 Normal Saline 0.9% IV 100 mls/hr .Q10H ADELA Administration Lisinopril 20 mg 07/22/21 09:00 07/22/21 09:11 Lisinopril 20 Mg Tablet PO 20 mg DAILY ADELA Administration Methocarbamol 500 mg 07/22/21 14:00 07/22/21 13:54 Methocarbamol 500 Mg Tablet PO 500 mg Q8HR ADELA Administration Mineral Oil 30 ml 07/22/21 09:00 07/22/21 09:11 Mineral Oil 473 Ml Bottle PO 30 ml DAILY ADELA Administration Nicotine 1 patch 07/22/21 09:00 07/22/21 09:14 Nicotine 7 Mg Patch TOP Not Given DAILY ADELA Oxycodone HCl 5 mg 07/21/21 14:32 07/22/21 09:13 Oxycodone 5 Mg Tablet PO 5 mg Q4HR PRN Administration PAIN Pantoprazole Sodium 40 mg 07/22/21 07:00 07/22/21 09:12 Pantoprazole 40 Mg Tablet PO 40 mg QDAC ADELA Administration Sodium Chloride 10 ml 07/21/21 17:00 07/22/21 13:58 Sodium Chloride Flush 0.9% 10 Ml Syringe IVP Not Given 0100,0900,1700 [facility] [place] - Physical Exam Wound/Incisions: positive: Other (Bruising is apparent. Wounds are closed. Drainage on the dressings last evening has stopped this morning.) General Appearance: positive: No acute distress, Alert Eyes Bilateral: positive: Normal inspection Respiratory: positive: Chest non-tender, No respiratory distress Cardiovascular: positive: Regular rate & rhythm, No murmur Abdomen: positive: Nml bowel sounds, Tenderness Neurologic/Psychiatric: positive: Oriented x3 ABX Reporting Has patient been on IV antibiotics over the past 48 hours?: Yes Impression/Plan - Problem List Problem List: Not unexpected postoperative pain in the setting of a hernia that was much larger than originally expected. We will schedule Toradol as opposed to as needed dosing, add gabapentin, add Robaxin. He will also walk with physical therapy. Hopefully we can get his pain better controlled over the next couple of days so that he can go home to self-care.At present, he is requiring IV m edication for control and is unable to care for himself. Additionally, he is taking in minimal oral nutrition. This is certainly not enough to sustain himself at its present level.
[2021-07-22] MEDS: SODIUM CHLORIDE FLUSH 0.9% 10 ML SYRINGE IVP PRN ×2 (16:56→19:05)
[2021-07-22] MEDS ORDERED: LIDOCAINE MPF 2%-EPI 1:200000 20 ML VIAL ONE (17:34)
--- NOTE | 2021-07-22 18:01 | PROVIDER PROGRESS NOTE ---
Subjective - General Admit Date: 07/21/21 Procedure Date: 07/21/21 Post Op Days: 2 Procedure Performed: Laparoscopic ventral hernia repair - Review of Systems Wound/Incisions: positive: Other (Bruising is apparent. Wounds are closed. Drainage on the dressings last evening has stopped this morning.) - Other Other Information/Narrative: Called to see patient for draining from the incision - dark serous fluid. Arnulfo says his pain is still at a 6 or 7 but the dilaudid helps the most. Objective - Patient Data Vital Signs: Vital Signs x48h Temp Pulse Resp BP Pulse Ox 07/22/21 17:00 95 18 115/75 91 L 07/22/21 11:25 36.5 C 115 H 18 126/82 H 97 Weight: Weight 07/20/21 07/21/21 07/22/21 23:59 23:59 23:59 Weight (kg) 77 kg Intake & Output: Intake and Output Totals x24h 07/20/21 07/21/21 07/22/21 23:59 23:59 23:59 Intake Total 941.150 2605.333 Output Total 675 725 Balance -677.294 4094.333 - Lab Results Lab Results: 07/23/21 05:32 07/23/21 05:32 Other Lab Results: Lab Results x24hrs 07/22/21 Range/Units 08:41 WBC 9.4 (4.8-10.8) x10^3/uL RBC 4.85 (4.70-6.10) 10^6/uL Hgb 15.6 (14.0-18.0) g/dL Hct 46.8 (42.0-52.0) % MCV 96.5 H (80.0-94.0) fL MCH 32.2 H (27.0-31.0) pg MCHC 33.3 (32.0-36.0) g/dL RDW 13.7 (12.0-15.0) % Plt Count 258 (130-450) 10^3/uL MPV 9.9 (7.4-11.4) fL Neut # (Auto) 8.2 H (1.5-6.6) 10^3/uL Lymph # (Auto) 0.4 L (1.5-3.5) 10^3/uL [place] # (Auto) 0.5 (0.0-1.0) 10^3/uL Eos # (Auto) 0.3 (0.0-0.7) 10^3/uL Baso # (Auto) 0.0 (0.0-0.1) 10^3/uL Absolute Nucleated RBC 0.00 x10^3/uL Band Neuts % (Manual) Not Reportable Abnorm Lymph % (Manual) Not Reportable Nucleated RBC % 0.0 /100WBC Neutrophils # (Manual) Not Reportable Lymphocytes # (Manual) Not Reportable Monocytes # (Manual) Not Reportable Eosinophils # (Manual) Not Reportable Basophils # (Manual) Not Reportable Differential Comment MANUAL=AUTO DIFF WBC Morphology NORMAL APPEARANCE (NORMAL) Platelet Estimate NORMAL (130-450,000) (NORMAL) Platelet Morphology NORMAL APPEARANCE (NORMAL) RBC Morph Micro Appear NORMAL APPEARANCE (NORMAL) - Current Medications Current Medications: Current Medications Generic Name Dose Route Start Last Admin Trade Name Freq PRN Reason Stop Dose Admin Allopurinol 100 mg 07/22/21 09:00 07/22/21 09:12 Allopurinol 100 Mg Tablet PO 100 mg DAILY ADELA Administration Amlodipine Besylate 10 mg 07/22/21 09:00 07/22/21 09:12 Amlodipine 5 Mg Tablet PO 10 mg DAILY ADELA Administration Docusate Sodium 200 mg 07/22/21 09:00 07/22/21 09:11 Docusate Sodium 100 Mg Capsule PO 200 mg DAILY ADELA Administration Gabapentin 300 mg 07/22/21 14:00 07/22/21 13:54 Gabapentin 300 Mg Capsule PO 300 mg BID ADELA Administration Hydromorphone HCl 0.5 mg 07/22/21 13:22 07/22/21 16:55 Hydromorphone 0.5 Mg/0.5 Ml Syringe IVP 0.5 mg Q1H PRN Administration PAIN Sodium Chloride 1,000 mls @ 100 mls/hr 07/21/21 15:00 07/22/21 13:52 Normal Saline 0.9% IV 100 mls/hr .Q10H ADELA Administration Lisinopril 20 mg 07/22/21 09:00 07/22/21 09:11 Lisinopril 20 Mg Tablet PO 20 mg DAILY ADELA Administration Methocarbamol 500 mg 07/22/21 14:00 07/22/21 13:54 Methocarbamol 500 Mg Tablet PO 500 mg Q8HR ADELA Administration Mineral Oil 30 ml 07/22/21 09:00 07/22/21 09:11 Mineral Oil 473 Ml Bottle PO 30 ml DAILY ADELA Administration Nicotine 1 patch 07/22/21 09:00 07/22/21 09:14 Nicotine 7 Mg Patch TOP Not Given DAILY ADELA Oxycodone HCl 5 mg 07/21/21 14:32 07/22/21 17:34 Oxycodone 5 Mg Tablet PO 5 mg Q4HR PRN Administration PAIN Pantoprazole Sodium 40 mg 07/22/21 07:00 07/22/21 09:12 Pantoprazole 40 Mg Tablet PO 40 mg QDAC ADELA Administration Sodium Chloride 10 ml 07/21/21 17:00 07/22/21 16:22 Sodium Chloride Flush 0.9% 10 Ml Syringe IVP 10 ml 0100,0900,1700 ADELA Administration Sodium Chloride 10 ml 07/21/21 14:32 07/22/21 16:56 Sodium Chloride Flush 0.9% 10 Ml Syringe IVP 10 ml PRN PRN Administration NEEDED PER PROVIDER ORDERS Impression/Plan - Problem List Problem List: The incision was prepped with Betadine solution and anesthetized with 2% lidocaine with epinephrine. A running locking over and over 3-0 nylon suture was placed at the midline umbilical site to create a watertight suture. The wound was then dressed and an ice pack applied there was no more leaking of serous fluid. Will increase Dilaudid dose to 1 mg every hour as needed for pain.He can have an extra dose now since we have just closed his wound.
[2021-07-22] MEDS ORDERED: HYDROmorphone 1 MG/ML CARPUJECT IVP PRN (18:13)
[2021-07-22] MEDS ORDERED: HYDROmorphone 2 MG/ML VIAL IVP ONE (19:00)
[2021-07-22] MEDS ORDERED: HYDROmorphone 1 MG/ML CARPUJECT IVP ONE (19:00)
[2021-07-23] MEDS ORDERED: SODIUM CHLORIDE 0.9% 500 ML IV ONE (00:52)
[2021-07-23] MEDS: SODIUM CHLORIDE FLUSH 0.9% 10 ML SYRINGE IVP SCH ×3 (00:53→17:01)
[2021-07-23] MEDS: oxyCODONE 5 MG TABLET PO PRN (01:22)
[2021-07-23] MEDS ORDERED: SODIUM CHLORIDE 0.9% 1,000 ML IV ONE ×5 (04:37→16:20)
[2021-07-23 05:43] LABS: BASOPHILS % (AUTO) 0.7 %; EOSINOPHILS % (AUTO) 0.5 %; HCT - HEMATOCRIT 40.3 % (42.0-52.0); HGB - HEMOGLOBIN 12.9 g/dL (14.0-18.0); LYMPHOCYTES % (AUTO) 6.4 %; MEAN PLATELET VOLUME 10.7 fL (7.4-11.4); NEUTROPHILS % (AUTO) 85.9 %; PLT - PLATELET COUNT 235 10^3/uL (130-450); RED BLOOD COUNT 4.03 10^6/uL (4.70-6.10); RED CELL DISTRIBUTION WIDTH 14.2 % (12.0-15.0); WHITE BLOOD COUNT 10.4 x10^3/uL (4.8-10.8)
[2021-07-23 05:47] LABS: ABNORMAL LYMPHS % (MANUAL) 0 %
[2021-07-23 05:52] LABS: ALBUMIN 2.5 g/dL (3.2-5.5); ALBUMIN/GLOBULIN RATIO 0.8 (1.0-2.2); BILIRUBIN,TOTAL 1.1 mg/dL (0.2-1.0); CALCIUM 7.8 mg/dL (8.5-10.3); CREATININE 2.8 mg/dL (0.6-1.2); POTASSIUM 5.2 mmol/L (3.5-5.0); TOTAL PROTEIN 5.8 g/dL (6.7-8.2)
[2021-07-23 06:03] LABS: BAND NEUTROPHILS % (MANUAL) 48 %; LYMPHOCYTES # (MANUAL) 1.1 10^3/uL (1.5-3.5); LYMPHOCYTES % (MANUAL) 11 %; MONOCYTES # (MANUAL) 0.3 10^3/uL (0.0-1.0); NEUTROPHILS # (MANUAL) 8.9 10^3/uL (1.5-6.6)
[2021-07-23 06:04] LABS: DIFFERENTIAL COMMENT MANUAL DIFFERENTIAL; PLATELET ESTIMATE, MANUAL NORMAL (130-450,000) (NORMAL); RBC MORPHOLOGY (MULTIPLE) NORMAL APPEARANCE (NORMAL)
[2021-07-23] MEDS: PANTOPRAZOLE 40 MG TABLET PO SCH (06:41)
[2021-07-23] MEDS: methocarbamoL 500 MG TABLET PO SCH ×3 (06:41→21:11)
[2021-07-23] MEDS: amLODIPine 5 MG TABLET PO SCH (07:32)
[2021-07-23] MEDS: lisinopriL 20 MG TABLET PO SCH (07:32)
[2021-07-23] MEDS: NICOTINE 7 MG PATCH TOP SCH (07:38)
[2021-07-23] MEDS: DOCUSATE SODIUM 100 MG CAPSULE PO SCH (08:07)
[2021-07-23] MEDS: GABAPENTIN 300 MG CAPSULE PO SCH ×2 (08:07→21:12)
[2021-07-23] MEDS: allopurinoL 100 MG TABLET PO SCH (08:07)
[2021-07-23] MEDS: ENOXAPARIN 40 MG/0.4 ML SYRINGE SUBQ SCH (08:08)
[2021-07-23] MEDS: MINERAL OIL 473 ML BOTTLE PO SCH (08:08)
--- NOTE | 2021-07-23 09:04 | PROVIDER PROGRESS NOTE ---
Subjective - Prog Note Date Prog Note Date: 07/23/21 Prog Note Time: 09:02 - Subjective Subjective: Hypotension to 70s overnight associated with dizziness. 1.5L fluid given with minimal response, so obtaining troponin and ECG. Retaining urine, will have f oley placed. Objective - Vital Signs/Intake & Output Reviewed Vital Signs: Yes Vital Signs: Vital Signs x48h Temp Pulse Resp BP Pulse Ox 07/23/21 08:30 64/42 L 07/23/21 08:20 97 69/47 L 07/23/21 07:30 37.1 C 92 20 84/56 L 92 07/23/21 06:51 94/64 07/23/21 05:42 90 20 79/56 L 95 07/23/21 04:39 98 78/54 L 07/23/21 03:57 99 86/54 L 07/23/21 03:30 97 81/56 L 07/23/21 02:09 94 82/48 L Intake & Output: Intake & Output 07/20/21 07/21/21 07/22/21 07/23/21 23:59 23:59 23:59 23:59 Intake Total 583.782 2523.000 1989 Output Total 675 725 550 Balance -690.990 9700.000 1440 - Objective General Appearance: positive: No acute distress Respiratory: positive: No respiratory distress, Other (2L nasal cannula) Cardiovascular: positive: Regular rate & rhythm, Other (No pitting edema) Abdomen: positive: Other (Soft, mildly distended, port sites intact with some old strikethrough, umbilical incision with ash c/d/i) - Lab Results Fish Bones: 07/23/21 05:32 07/23/21 05:32 Other Labs: Lab Results x24hrs 07/23/21 07/23/21 07/23/21 Range/Units 05:32 05:32 05:32 WBC 10.4 (4.8-10.8) x10^3/uL RBC 4.03 L (4.70-6.10) 10^6/uL Hgb 12.9 L (14.0-18.0) g/dL Hct 40.3 L (42.0-52.0) % MCV 100.0 H (80.0-94.0) fL MCH 32.0 H (27.0-31.0) pg MCHC 32.0 (32.0-36.0) g/dL RDW 14.2 (12.0-15.0) % Plt Count 235 (130-450) 10^3/uL MPV 10.7 (7.4-11.4) fL Neut # (Auto) Not Reportable (1.5-6.6) 10^3/uL Lymph # (Auto) Not Reportable (1.5-3.5) 10^3/uL [place] # (Auto) Not Reportable (0.0-1.0) 10^3/uL Eos # (Auto) Not Reportable (0.0-0.7) 10^3/uL Baso # (Auto) Not Reportable (0.0-0.1) 10^3/uL Absolute Nucleated RBC Not Reportable x10^3/uL Total Counted 100 Band Neuts % (Manual) 48 H Abnorm Lymph % (Manual) 0 Nucleated RBC % Not Reportable /100WBC Neutrophils # (Manual) 8.9 H Lymphocytes # (Manual) 1.1 L Monocytes # (Manual) 0.3 Eosinophils # (Manual) 0.0 Basophils # (Manual) 0.0 Differential Comment MANUAL DIFFERENTIAL WBC Morphology (NORMAL) Platelet Estimate NORMAL (130-450,000) (NORMAL) Platelet Morphology (NORMAL) RBC Morph Micro Appear NORMAL APPEARANCE (NORMAL) Sodium 137 (135-145) mmol/L Potassium 5.2 H (3.5-5.0) mmol/L Chloride 105 (101-111) mmol/L Carbon Dioxide 21 (21-32) mmol/L Anion Gap 11.0 (6-13) BUN 43 H (6-20) mg/dL Creatinine 2.8 H (0.6-1.2) mg/dL Estimated GFR (MDRD) 22 L (>89) Glucose 115 H (70-100) mg/dL Calcium 7.8 L (8.5-10.3) mg/dL Total Bilirubin 1.1 H (0.2-1.0) mg/dL AST 24 (10-42) IU/L ALT 17 (10-60) IU/L Alkaline Phosphatase 32 L (42-121) IU/L Troponin I High Sens 40.9 H* (2.3-19.7) ng/L Total Protein 5.8 L (6.7-8.2) g/dL Albumin 2.5 L (3.2-5.5) g/dL Globulin 3.3 (2.1-4.2) g/dL Albumin/Globulin Ratio 0.8 L (1.0-2.2) 07/22/21 Range/Units 08:41 WBC (4.8-10.8) x10^3/uL RBC (4.70-6.10) 10^6/uL Hgb (14.0-18.0) g/dL Hct (42.0-52.0) % MCV (80.0-94.0) fL MCH (27.0-31.0) pg MCHC (32.0-36.0) g/dL RDW (12.0-15.0) % Plt Count (130-450) 10^3/uL MPV (7.4-11.4) fL Neut # (Auto) 8.2 H (1.5-6.6) 10^3/uL Lymph # (Auto) 0.4 L (1.5-3.5) 10^3/uL [place] # (Auto) 0.5 (0.0-1.0) 10^3/uL Eos # (Auto) 0.3 (0.0-0.7) 10^3/uL Baso # (Auto) 0.0 (0.0-0.1) 10^3/uL Absolute Nucleated RBC 0.00 x10^3/uL Total Counted Band Neuts % (Manual) Not Reportable Abnorm Lymph % (Manual) Not Reportable Nucleated RBC % 0.0 /100WBC Neutrophils # (Manual) Not Reportable Lymphocytes # (Manual) Not Reportable Monocytes # (Manual) Not Reportable Eosinophils # (Manual) Not Reportable Basophils # (Manual) Not Reportable Differential Comment MANUAL=AUTO DIFF WBC Morphology NORMAL APPEARANCE (NORMAL) Platelet Estimate NORMAL (130-450,000) (NORMAL) Platelet Morphology NORMAL APPEARANCE (NORMAL) RBC Morph Micro Appear NORMAL APPEARANCE (NORMAL) Sodium (135-145) mmol/L Potassium (3.5-5.0) mmol/L Chloride (101-111) mmol/L Carbon Dioxide (21-32) mmol/L Anion Gap (6-13) BUN (6-20) mg/dL Creatinine (0.6-1.2) mg/dL Estimated GFR (MDRD) (>89) Glucose (70-100) mg/dL Calcium (8.5-10.3) mg/dL Total Bilirubin (0.2-1.0) mg/dL AST (10-42) IU/L ALT (10-60) IU/L Alkaline Phosphatase (42-121) IU/L Troponin I High Sens (2.3-19.7) ng/L Total Protein (6.7-8.2) g/dL Albumin (3.2-5.5) g/dL Globulin (2.1-4.2) g/dL Albumin/Globulin Ratio (1.0-2.2) Assessment/Plan - Problem List (1) Abdominal wall hernia Impression: Incisions healing well Diet as tolerated, pending hypotension workup (2) Hypotension Impression: Likely hypovolemia considering creatinine bump. However, minimally responsive to fluids. Troponin elevated, ECG NSR. Will place cam, obtain medical consult and possible ICU transfer.
[2021-07-23] MEDS: SODIUM CHLORIDE 0.9% 1,000 ML IV SCH ×4 (10:00→18:20)
--- NOTE | 2021-07-23 10:42 | CONSULTATION NOTE ---
Referring Provider Name of Referring Provider:: Dr Jamee Bartlett Consult Date: 07/23/21 Chief Complaint - Chief Complaint Chief Complaint: hypotension, elevated troponin History of Present Illness - Admitted From Admitted From:: [facility] ED - History Obtained From Records Reviewed: yes History obtained from: patient and medical records - History of Present Illness HPI Comment/Other: Patient is 76-year-old male who underwent an elective laparoscopic ventral hernia repair on 07/21/[address] Jamee Bartlett. The surgery was unremarkable with minimal estimated blood loss.Today 07/23/2021 the patient had very low blood pressure with systolics as low as 70s. As a result he was transferred to the ICU for closer monitoring and treatment and the hospitalist team was consulted. At bedside the patient was resting comfortably however he complained of severe abdominal pain especially with palpation. He denied dizziness, chest pain or dyspnea. He also denied nausea vomiting fever or chills. He is on clear liquid diet and since surgery has not had a bowel movement or flatulence. He also has very low urine output and urine is currently a dark christina in color History - Past Medical History Cardiovascular: reports: Hypertension Respiratory: reports: None Endocrine/Autoimmune: reports: None GI: reports: Colon polyps : reports: Benign prostate hypertrophy HEENT: reports: Chronic vision loss Psych: reports: None Musculoskeletal: reports: Gout Derm: reports: None, Other MRSA Hx?: No Other Past Medical History: Gout, Iron deficiency anemia, Tubulovillous adenoma - Past Surgical History General: reports: Cholecystectomy, Appendectomy, Bowel surgery, Colonoscopy Ortho: reports: Other (Left wrist fracture status post repair with a plate placed) HEENT: reports: Tonsil/Adenoidectomy - Family & Social History Family History Comment/Other: Father had history of congestive heart failure. Social History Notes: Is alone at home. He smokes a pipe. He drinks about 1 bottle of wine daily. Does not use any recreational substances. He is an avid fencer - POLST Patient has POLST: No POLST Status: Full Code Meds/Allgy - Home Medications Home Medications: Ambulatory Orders Medication Instructions Recorded Confirmed Folic Acid 1 tab PO DAILY 12/28/12 07/21/21 allopurinoL [Allopurinol] 1 - 2 tab PO DAILY 08/08/13 07/21/21 Amlodipine Besylate 10 mg PO DAILY 07/12/14 07/21/21 Ascorbic Acid [Vitamin C] 500 mg PO DAILY 07/14/21 07/21/21 Calcium Carbonate [Calcium] 600 mg PO DAILY 07/14/21 07/21/21 Cyanocobalamin (Vitamin B-12) 1,000 mcg PO DAILY 07/14/21 07/21/21 [Vitamin B-12] Lisinopril [Zestril] 20 mg PO DAILY 07/14/21 07/21/21 Cholecalciferol (Vitamin D3) 125 mcg PO DAILY 07/21/21 07/21/21 [Vitamin D3] - Allergies Allergies/Adverse Reactions: Allergies Allergy/AdvReac Type Severity Reaction Status Date / Time No Known Drug Allergies Allergy Verified 06/17/21 09:49 Review of Systems - Constitutional Constitutional: denies: Fatigue, Fever, Chills - Eyes Eyes: denies: Pain, Dipolpia - Ears, Nose & Throat Ears, Nose & Throat: denies: Sore throat - Cardiovascular Cariovascular: denies: Chest pain, Edema, Lightheadedness, Syncope, Exertional dyspnea - Respiratory Respiratory: denies: Cough, Sputum production, Wheezing, SOB at rest, SOB with exertion - Gastrointestinal Gastrointestinal: reports: Abdominal pain, Constipation. denies: Abdominal distention, Nausea, Vomiting - Genitourinary Genitourinary: denies: Dysuria, Frequency, Urgency - Musculoskeletal Musculoskeletal: denies: Muscle pain, Back pain - Integumentary Integumentary: denies: Rash, Pruritis, Lesions - Neurological Neurological: reports: General weakness. denies: Headache, Dizziness - Psychiatric Psychiatric: denies: Depression, Anxiety - Endocrine Endocrine: denies: Polyuria, Polydypsia - Hematologic/Lymphatic Hematologic/Lymphatic: denies: Anemia, Bruising, Petechiae Exam - Vital Signs Vital Signs: Vital Signs x48h Temp Pulse Resp BP Pulse Ox 07/23/21 10:00 36.9 C 99 26 H 89/52 L 90 L 07/23/21 09:48 89 91/52 L 07/23/21 08:30 64/42 L 07/23/21 08:20 97 69/47 L 07/23/21 07:30 37.1 C 92 20 84/56 L 92 07/23/21 06:51 94/64 07/23/21 05:42 90 20 79/56 L 95 07/23/21 04:39 98 78/54 L 07/23/21 03:57 99 86/54 L 07/23/21 03:30 97 81/56 L - Physical Exam General Appearance: positive: Alert, Moderate distress, Severe distress Eyes Bilateral: positive: PERRL, EOMI ENT: positive: Dry mucous membranes Neck: positive: No JVD, Trachea midline Respiratory: positive: Chest non-tender, No respiratory distress, Breath sounds nml. negative: Wheezes, Rales, Rhonchi Cardiovascular: positive: No murmur, Tachycardia Abdomen: positive: Non-tender, Nml bowel sounds, No distention Back: positive: Nml inspection Skin: positive: Color nml, No rash, Warm, Dry Extremities: positive: Non-tender, Full ROM, Nml appearance, No pedal edema Neurologic/Psychiatric: positive: Oriented x3, Mood/affect nml Conclusion/Plan - Problem List (1) Hypovolemic shock Conclusion/Plan: Patient was given a total of 4-1/2 L of normal saline without any significant improvement in his blood pressure and urine output. As a result a central line was placed and patient was started on Levophed while continuing IV hydration. JVD was very collapsible during central line placement. Anticipating improvement in patient's pressure. Will titrate Levophed to ef fect. (2) Acute kidney injury (DONN) with acute tubular necrosis (ATN) Conclusion/Plan: Related to hypovolemic shock. Patient has very diminished urine output. Urine has a dark christina color Creatinine is 3.5, estimated GFR 17, BUN 49. We will continue IV hydration. Anticipating improvement over the next couple of days. (3) Encephalopathy acute Conclusion/Plan: Etiology undetermined. This may be due to medication. CT of the brain without contrast ordered. He normally drinks 1 bottle of wine daily. Last drink was over 48 hours ago. CIWA protocol initiated. (4) Ventral hernia Conclusion/Plan: Status post laparoscopic ventral repair. Postop day #2. General surgery managi ng. Pain medication as needed with dilaudid, oxycodone and tylenol. (5) Elevated troponin Conclusion/Plan: Likely demand ischemia from hypovolemic shock. Systolic blood pressure was as low as 60. Troponin was 40.9 then 54.2. Will trend X1 more. Will check BNP in the a.m. (6) Alcohol abuse Conclusion/Plan: He normally drinks 1 bottle of wine daily. Last drink was over 48 hours ago. CIWA protocol initiated. Magnesium was 1.4. Patient was administered 2 g of magnesium sulfate x1. (7) Gout Conclusion/Plan: We will hold patient's allopurinol for now due to acute kidney injury. - Lab Results Fish Bones: 07/23/21 14:45 07/23/21 14:45
[2021-07-23 11:35] LABS: BUN - BLOOD UREA NITROGEN 46 mg/dL (6-20); CALCIUM 7.6 mg/dL (8.5-10.3); CARBON DIOXIDE - CO2 19 mmol/L (21-32); CHLORIDE 104 mmol/L (101-111); CREATININE 3.1 mg/dL (0.6-1.2); GFR - MDRD 20 (>89); GLUCOSE 104 mg/dL (70-100); IONIZED CALCIUM IF INDICATED YES; POTASSIUM 4.5 mmol/L (3.5-5.0); SODIUM 135 mmol/L (135-145)
[2021-07-23 11:40] LABS: CALCIUM, IONIZED 0.99 mmol/L (1.15-1.33); VBG PH 7.274 (7.31-7.41)
[2021-07-23] MEDS ORDERED: HYDROmorphone 1 MG/ML CARPUJECT IVP PRN (12:18)
[2021-07-23] MEDS: ceFAZolin 1 GM in SODIUM CHLORIDE 0.9% 100ML 100 ML IV SCH (13:45)
[2021-07-23 15:00] LABS: BASOPHILS % (AUTO) 0.5 %; EOSINOPHILS % (AUTO) 0.3 %; HCT - HEMATOCRIT 39.9 % (42.0-52.0); HGB - HEMOGLOBIN 12.9 g/dL (14.0-18.0); MEAN CORPUSCULAR HEMOGLOBIN 32.2 pg (27.0-31.0); MEAN CORPUSCULAR HGB CONC 32.3 g/dL (32.0-36.0); MEAN CORPUSCULAR VOLUME 99.5 fL (80.0-94.0); MEAN PLATELET VOLUME 10.7 fL (7.4-11.4); MONOCYTES % (AUTO) 3.9 %; NEUTROPHILS % (AUTO) 91.9 %; PLT - PLATELET COUNT 271 10^3/uL (130-450); RED BLOOD COUNT 4.01 10^6/uL (4.70-6.10); RED CELL DISTRIBUTION WIDTH 14.2 % (12.0-15.0); WHITE BLOOD COUNT 9.8 x10^3/uL (4.8-10.8)
[2021-07-23 15:04] LABS: MAGNESIUM 1.4 mg/dL (1.7-2.8)
[2021-07-23 15:06] LABS: SLIDE REVIEW? Indicated
[2021-07-23 15:45] LABS: ABNORMAL LYMPHS % (MANUAL) 0 %
[2021-07-23] MEDS ORDERED: MAGNESIUM SULFATE 2 GRAM 2 GM/50 ML BAG IV ONE (15:47)
[2021-07-23] MEDS: LORazepam 2 MG/ML VIAL IVP PRN ×2 (15:48→23:29)
[2021-07-23 15:49] LABS: BAND NEUTROPHILS % (MANUAL) 54 %; LYMPHOCYTES # (MANUAL) 0.3 10^3/uL (1.5-3.5); LYMPHOCYTES % (MANUAL) 3 %; MONOCYTES # (MANUAL) 0.1 10^3/uL (0.0-1.0); NEUTROPHILS # (MANUAL) 9.4 10^3/uL (1.5-6.6)
[2021-07-23 15:51] LABS: DIFFERENTIAL COMMENT MANUAL DIFFERENTIAL; PLATELET ESTIMATE, MANUAL NORMAL (130-450,000) (NORMAL); PLATELET MORPHOLOGY 1+ GIANT PLATELETS (NORMAL); RBC MORPHOLOGY (MULTIPLE) NORMAL APPEARANCE (NORMAL)
[2021-07-23 15:53] LABS: ALBUMIN 2.3 g/dL (3.2-5.5); ALBUMIN/GLOBULIN RATIO 0.7 (1.0-2.2); BILIRUBIN,TOTAL 1.4 mg/dL (0.2-1.0); CALCIUM 7.2 mg/dL (8.5-10.3); CREATININE 3.5 mg/dL (0.6-1.2); POTASSIUM 4.6 mmol/L (3.5-5.0); TOTAL PROTEIN 5.7 g/dL (6.7-8.2)
--- NOTE | 2021-07-23 16:18 | ANESTHESIA PROCEDURE NOTE ---
Anesth Central Line Template - Central Line Central Line Preparation: Consent Obtained, Time out completed, Ultrasound used, Sterile prep and drape Central line location: Right IJ Central line type: Triple lumen Central line catheter tip site resides: Superior vena cava (SVC) Central line aftercare: Chlorhexidine disc placed, Secured, Placement confirmed, No pneumothorax, No complications, Bundle checklist complete, Pt tolerated well, Other Other Info/Details: 20 cm cath sutured at 17. Suture x 3 and tegaderm.
--- NOTE | 2021-07-23 16:20 | PROVIDER PROGRESS NOTE ---
Subjective - General Admit Date: 07/21/21 Procedure Date: 07/21/21 Post Op Days: 2 Procedure Performed: Laparoscopic ventral hernia repair - Review of Systems Wound/Incisions: positive: Other (Bruising is apparent. Wounds are closed. Drainage on the dressings last evening has stopped this morning.) - Other Other Information/Narrative: Patient currently sedated with ativan and getting a PICC line. Staff reports he has been awake and pleasant today. Ate some lunch. Creat and BUN still rising at afternoon labs. Anesthesia reports IJ was flat when PICC was placed. Minimal urine output Objective - Patient Data Vital Signs: Vital Signs x48h Temp Pulse Resp BP Pulse Ox 07/23/21 15:00 102 H 32 H 81/54 L 94 07/23/21 14:00 114 H 28 H 77/64 L 91 L 07/23/21 13:00 106 H 22 86/60 L 91 L 07/23/21 12:00 93 30 H 90/56 L 91 L 07/23/21 11:00 94 23 85/61 L 92 07/23/21 10:00 36.9 C 99 26 H 89/52 L 90 L 07/23/21 09:48 89 91/52 L 07/23/21 08:30 64/42 L 07/23/21 08:20 97 69/47 L Weight: Weight 07/21/21 07/22/21 07/23/21 23:59 23:59 23:59 Weight (kg) 77 kg Intake & Output: Intake and Output Totals x24h 07/21/21 07/22/21 07/23/21 23:59 23:59 23:59 Intake Total 745.823 1415.000 4940.00 Output Total 675 725 580 Balance -187.267 5194.000 4360.00 - Lab Results Lab Results: 07/23/21 14:45 07/23/21 14:45 Other Lab Results: Lab Results x24hrs 07/23/21 07/23/21 07/23/21 Range/Units 14:45 14:45 14:45 WBC 9.8 (4.8-10.8) x10^3/uL RBC 4.01 L (4.70-6.10) 10^6/uL Hgb 12.9 L (14.0-18.0) g/dL Hct 39.9 L (42.0-52.0) % MCV 99.5 H (80.0-94.0) fL MCH 32.2 H (27.0-31.0) pg MCHC 32.3 (32.0-36.0) g/dL RDW 14.2 (12.0-15.0) % Plt Count 271 (130-450) 10^3/uL MPV 10.7 (7.4-11.4) fL Neut # (Auto) Not Reportable Lymph # (Auto) Not Reportable [place] # (Auto) Not Reportable Eos # (Auto) Not Reportable Baso # (Auto) Not Reportable Absolute Nucleated RBC Not Reportable Total Counted 100 Band Neuts % (Manual) 54 H (0 - 10) % Abnorm Lymph % (Manual) 0 % Nucleated RBC % Not Reportable Neutrophils # (Manual) 9.4 H (1.5-6.6) 10^3/uL Lymphocytes # (Manual) 0.3 L (1.5-3.5) 10^3/uL Monocytes # (Manual) 0.1 (0.0-1.0) 10^3/uL Eosinophils # (Manual) 0.0 (0-0.7) 10^3/uL Basophils # (Manual) 0.0 (0-0.1) 10^3/uL Differential Comment MANUAL DIFFERENTIAL Manual Slide Review Indicated Platelet Estimate NORMAL (130-450,000) (NORMAL) Platelet Morphology 1+ GIANT PLATELETS (NORMAL) RBC Morph Micro Appear NORMAL APPEARANCE (NORMAL) VBG pH (7.31-7.41) Ionized Calcium (1.15-1.33) mmol/L Sodium 134 L (135-145) mmol/L Potassium 4.6 (3.5-5.0) mmol/L Chloride 104 (101-111) mmol/L Carbon Dioxide 18 L (21-32) mmol/L Anion Gap 12.0 (6-13) BUN 49 H (6-20) mg/dL Creatinine 3.5 H (0.6-1.2) mg/dL Estimated GFR (MDRD) 17 L (>89) Glucose 125 H (70-100) mg/dL Calcium 7.2 L (8.5-10.3) mg/dL Phosphorus 3.0 (2.5-4.6) mg/dL Magnesium 1.4 L (1.7-2.8) mg/dL Total Bilirubin 1.4 H (0.2-1.0) mg/dL AST 28 (10-42) IU/L ALT 15 (10-60) IU/L Alkaline Phosphatase 33 L (42-121) IU/L Troponin I High Sens (2.3-19.7) ng/L Total Protein 5.7 L (6.7-8.2) g/dL Albumin 2.3 L (3.2-5.5) g/dL Globulin 3.4 (2.1-4.2) g/dL Albumin/Globulin Ratio 0.7 L (1.0-2.2) Nasal Screen MRSA (PCR) (NEGATIVE) 07/23/21 07/23/21 07/23/21 Range/Units 11:19 11:19 11:19 WBC (4.8-10.8) x10^3/uL RBC (4.70-6.10) 10^6/uL Hgb (14.0-18.0) g/dL Hct (42.0-52.0) % MCV (80.0-94.0) fL MCH (27.0-31.0) pg MCHC (32.0-36.0) g/dL RDW (12.0-15.0) % Plt Count (130-450) 10^3/uL MPV (7.4-11.4) fL Neut # (Auto) Lymph # (Auto) [place] # (Auto) Eos # (Auto) Baso # (Auto) Absolute Nucleated RBC Total Counted Band Neuts % (Manual) (0 - 10) % Abnorm Lymph % (Manual) % Nucleated RBC % Neutrophils # (Manual) (1.5-6.6) 10^3/uL Lymphocytes # (Manual) (1.5-3.5) 10^3/uL Monocytes # (Manual) (0.0-1.0) 10^3/uL Eosinophils # (Manual) (0-0.7) 10^3/uL Basophils # (Manual) (0-0.1) 10^3/uL Differential Comment Manual Slide Review Platelet Estimate (NORMAL) Platelet Morphology (NORMAL) RBC Morph Micro Appear (NORMAL) VBG pH 7.274 L (7.31-7.41) Ionized Calcium 0.99 L YES (1.15-1.33) mmol/L Sodium 135 (135-145) mmol/L Potassium 4.5 (3.5-5.0) mmol/L Chloride 104 (101-111) mmol/L Carbon Dioxide 19 L (21-32) mmol/L Anion Gap 12.0 (6-13) BUN 46 H (6-20) mg/dL Creatinine 3.1 H (0.6-1.2) mg/dL Estimated GFR (MDRD) 20 L (>89) Glucose 104 H (70-100) mg/dL Calcium 7.6 L (8.5-10.3) mg/dL Phosphorus (2.5-4.6) mg/dL Magnesium (1.7-2.8) mg/dL Total Bilirubin (0.2-1.0) mg/dL AST (10-42) IU/L ALT (10-60) IU/L Alkaline Phosphatase (42-121) IU/L Troponin I High Sens 54.2 H* (2.3-19.7) ng/L Total Protein (6.7-8.2) g/dL Albumin (3.2-5.5) g/dL Globulin (2.1-4.2) g/dL Albumin/Globulin Ratio (1.0-2.2) Nasal Screen MRSA (PCR) (NEGATIVE) 07/23/21 07/23/21 07/23/21 Range/Units 11:01 05:32 05:32 WBC 10.4 (4.8-10.8) x10^3/uL RBC 4.03 L (4.70-6.10) 10^6/uL Hgb 12.9 L (14.0-18.0) g/dL Hct 40.3 L (42.0-52.0) % MCV 100.0 H (80.0-94.0) fL MCH 32.0 H (27.0-31.0) pg MCHC 32.0 (32.0-36.0) g/dL RDW 14.2 (12.0-15.0) % Plt Count 235 (130-450) 10^3/uL MPV 10.7 (7.4-11.4) fL Neut # (Auto) Not Reportable Lymph # (Auto) Not Reportable [place] # (Auto) Not Reportable Eos # (Auto) Not Reportable Baso # (Auto) Not Reportable Absolute Nucleated RBC Not Reportable Total Counted 100 Band Neuts % (Manual) 48 H (0 - 10) % Abnorm Lymph % (Manual) 0 % Nucleated RBC % Not Reportable Neutrophils # (Manual) 8.9 H (1.5-6.6) 10^3/uL Lymphocytes # (Manual) 1.1 L (1.5-3.5) 10^3/uL Monocytes # (Manual) 0.3 (0.0-1.0) 10^3/uL Eosinophils # (Manual) 0.0 (0-0.7) 10^3/uL Basophils # (Manual) 0.0 (0-0.1) 10^3/uL Differential Comment MANUAL DIFFERENTIAL Manual Slide Review Platelet Estimate NORMAL (130-450,000) (NORMAL) Platelet Morphology (NORMAL) RBC Morph Micro Appear NORMAL APPEARANCE (NORMAL) VBG pH (7.31-7.41) Ionized Calcium (1.15-1.33) mmol/L Sodium (135-145) mmol/L Potassium (3.5-5.0) mmol/L Chloride (101-111) mmol/L Carbon Dioxide (21-32) mmol/L Anion Gap (6-13) BUN (6-20) mg/dL Creatinine (0.6-1.2) mg/dL Estimated GFR (MDRD) (>89) Glucose (70-100) mg/dL Calcium (8.5-10.3) mg/dL Phosphorus (2.5-4.6) mg/dL Magnesium (1.7-2.8) mg/dL Total Bilirubin (0.2-1.0) mg/dL AST (10-42) IU/L ALT (10-60) IU/L Alkaline Phosphatase (42-121) IU/L Troponin I High Sens 40.9 H* (2.3-19.7) ng/L Total Protein (6.7-8.2) g/dL Albumin (3.2-5.5) g/dL Globulin (2.1-4.2) g/dL Albumin/Globulin Ratio (1.0-2.2) Nasal Screen MRSA (PCR) NEGATIVE (NEGATIVE) 07/23/21 Range/Units 05:32 WBC (4.8-10.8) x10^3/uL RBC (4.70-6.10) 10^6/uL Hgb (14.0-18.0) g/dL Hct (42.0-52.0) % MCV (80.0-94.0) fL MCH (27.0-31.0) pg MCHC (32.0-36.0) g/dL RDW (12.0-15.0) % Plt Count (130-450) 10^3/uL MPV (7.4-11.4) fL Neut # (Auto) Lymph # (Auto) [place] # (Auto) Eos # (Auto) Baso # (Auto) Absolute Nucleated RBC Total Counted Band Neuts % (Manual) (0 - 10) % Abnorm Lymph % (Manual) % Nucleated RBC % Neutrophils # (Manual) (1.5-6.6) 10^3/uL Lymphocytes # (Manual) (1.5-3.5) 10^3/uL Monocytes # (Manual) (0.0-1.0) 10^3/uL Eosinophils # (Manual) (0-0.7) 10^3/uL Basophils # (Manual) (0-0.1) 10^3/uL Differential Comment Manual Slide Review Platelet Estimate (NORMAL) Platelet Morphology (NORMAL) RBC Morph Micro Appear (NORMAL) VBG pH (7.31-7.41) Ionized Calcium (1.15-1.33) mmol/L Sodium 137 (135-145) mmol/L Potassium 5.2 H (3.5-5.0) mmol/L Chloride 105 (101-111) mmol/L Carbon Dioxide 21 (21-32) mmol/L Anion Gap 11.0 (6-13) BUN 43 H (6-20) mg/dL Creatinine 2.8 H (0.6-1.2) mg/dL Estimated GFR (MDRD) 22 L (>89) Glucose 115 H (70-100) mg/dL Calcium 7.8 L (8.5-10.3) mg/dL Phosphorus (2.5-4.6) mg/dL Magnesium (1.7-2.8) mg/dL Total Bilirubin 1.1 H (0.2-1.0) mg/dL AST 24 (10-42) IU/L ALT 17 (10-60) IU/L Alkaline Phosphatase 32 L (42-121) IU/L Troponin I High Sens (2.3-19.7) ng/L Total Protein 5.8 L (6.7-8.2) g/dL Albumin 2.5 L (3.2-5.5) g/dL Globulin 3.3 (2.1-4.2) g/dL Albumin/Globulin Ratio 0.8 L (1.0-2.2) Nasal Screen MRSA (PCR) (NEGATIVE) - Current Medications Current Medications: Current Medications Generic Name Dose Route Start Last Admin Trade Name Freq PRN Reason Stop Dose Admin Allopurinol 100 mg 07/22/21 09:00 07/23/21 08:07 Allopurinol 100 Mg Tablet PO 100 mg DAILY ADELA Administration Docusate Sodium 200 mg 07/22/21 09:00 07/23/21 08:07 Docusate Sodium 100 Mg Capsule PO 200 mg DAILY ADELA Administration Enoxaparin Sodium 40 mg 07/23/21 09:00 07/23/21 08:08 Enoxaparin 40 Mg/0.4 Ml Syringe SUBQ 40 mg DAILY ADELA Administration Gabapentin 300 mg 07/22/21 14:00 07/23/21 08:07 Gabapentin 300 Mg Capsule PO 300 mg BID ADELA Administration Hydromorphone HCl 1 mg 07/23/21 12:18 07/23/21 12:30 Hydromorphone 1 Mg/Ml Carpuject IVP 1 mg Q2H PRN Administration PAIN Sodium Chloride 1,000 mls @ 100 mls/hr 07/21/21 15:00 07/23/21 10:56 Normal Saline 0.9% IV Not Given .Q10H ADELA Sodium Chloride 1,000 mls @ 125 mls/hr 07/23/21 09:00 07/23/21 14:30 Normal Saline 0.9% IV 07/25/21 23:59 0 mls/hr .Q8H ADELA Infusion Cefazolin Sodium 1 gm/ Sodium 100 mls @ 200 mls/hr 07/23/21 14:00 07/23/21 14:15 Chloride IV Infused Q12H ADELA Infusion Sodium Chloride 1,000 mls @ 500 mls/hr 07/23/21 14:28 07/23/21 14:30 Normal Saline 0.9% IV 07/23/21 16:27 500 mls/hr ONCE ONE Administration Norepinephrine Bitartrate 8 mg 250 mls @ 15 mls/hr 07/23/21 16:00 07/23/21 16:00 / Dextrose IV 8 mcg/min .[id number] ADELA 15 mls/hr Administration Protocol 8 MCG/MIN Lorazepam 1 mg 07/23/21 15:32 07/23/21 15:48 Lorazepam 2 Mg/Ml Vial IVP 1 mg Q30M PRN Administration CIWA >8 Protocol Methocarbamol 500 mg 07/22/21 14:00 07/23/21 13:50 Methocarbamol 500 Mg Tablet PO 500 mg Q8HR ADELA Administration Mineral Oil 30 ml 07/22/21 09:00 07/23/21 08:08 Mineral Oil 473 Ml Bottle PO 30 ml DAILY ADELA Administration Nicotine 1 patch 07/22/21 09:00 07/23/21 07:38 Nicotine 7 Mg Patch TOP Not Given DAILY ADELA Oxycodone HCl 5 mg 07/21/21 14:32 07/23/21 01:22 Oxycodone 5 Mg Tablet PO 5 mg Q4HR PRN Administration PAIN Pantoprazole Sodium 40 mg 07/22/21 07:00 07/23/21 06:41 Pantoprazole 40 Mg Tablet PO 40 mg QDAC ADELA Administration Sodium Chloride 10 ml 07/21/21 17:00 07/23/21 09:00 Sodium Chloride Flush 0.9% 10 Ml Syringe IVP 10 ml 0100,0900,1700 ADELA Administration Sodium Chloride 10 ml 07/21/21 14:32 07/22/21 19:05 Sodium Chloride Flush 0.9% 10 Ml Syringe IVP 10 ml PRN PRN Administration NEEDED PER PROVIDER ORDERS - Physical Exam Abdomen: positive: Tenderness, Other (Bruised with multiple seromas visible at hernia sites. No drainage from the incisions now.) ABX Reporting Has patient been on IV antibiotics over the past 48 hours?: Yes Impression/Plan - Problem List Problem List: 1. Acute renal failure following laparoscopic ventral hernia repair. The operation was much larger than anticipated with multiple defects spanning 20 cm. No deep or bowel dissection but extensive lysis of adhesions to the abdominal wall. WBC and Hgb ok 2. Acute oliguric renal failure. Baseline creatinine at last outpatient lab check was 1.4. Unable to inquire about previous episodes currently. Hospitalist managing but I will give another fluid bolus in light of flat IJ.
--- NOTE | 2021-07-23 16:27 | XRAY Report ---
PROCEDURE: Chest for Line Placement INDICATIONS: CL placement verification TECHNIQUE: One view of the chest was acquired. COMPARISON: 03/12/2017 FINDINGS: Surgical changes and devices: Right-sided central venous catheter tip is in SVC/right atrium.. Lungs and pleura: There is pulmonary vascular congestion. Ill-defined airspace opacities in left uppe r lobe and bilateral lower lung castro are also seen. There is left greater than right bilateral pleu ral effusion. No gross pneumothorax. Mediastinum: And tortuous thoracic aorta is seen. Heart size is enlarged Bones and chest wall: No suspicious bony lesions. Overlying soft tissues appear unremarkable. IMPRESSION: 1. Right-sided central venous catheter tip is in lower SVC/right atrium. 2. Pulmonary vascular congestion and bilateral pleural effusion. Cannot rule out underlying bilateral scattered patchy infiltrates. No gross pneumothorax. Reviewed by: Hugo Aimn MD on 07/23/2021 4:25 PM PST Approved by: Hugo Amin MD on 07/23/2021 4:25 PM [facility] Station ID: [id number]
--- NOTE | 2021-07-23 17:08 | CT Report ---
PROCEDURE: HEAD WO INDICATIONS: Altered mental status TECHNIQUE: Noncontrast 4.5 mm thick angled axial sections acquired from the foramen magnum to the vertex. For r adiation dose reduction, the following was used: automated exposure control, adjustment of mA and/or kV according to patient size. COMPARISON: None. FINDINGS: Image quality: There is motion and beam hardening artifact limiting evaluation. CSF spaces: There is mild cerebral volume loss with prominence of the ventricles and sulci. Basal ci sterns are patent. No extra-axial fluid collections. Brain: No definite intracranial hemorrhage, mass, or mass effect. Cordero-white matter interface is romeo ssly preserved. There are subcortical and periventricular white matter hypodensities consistent with mild chronic small vessel ischemic changes. Skull and face: Calvarium and visualized facial bones are intact, without suspicious lesions. Sinuses: Visualized sinuses demonstrate bilateral mucosal thickening in the maxillary sinuses, moder ate on the left and mild on the right. There is also mild bilateral mucosal thickening in the ethmoid sinuses mastoid air cells are clear.. The frontal sinuses are not pneumatized. IMPRESSION: 1. No definite acute intracranial abnormality. 2. Mild chronic white matter small vessel ischemic changes and cerebral volume loss. Reviewed by: Armando Persaud MD on 07/23/2021 5:06 PM [facility] Approved by: Armando Persaud MD on 07/23/2021 5:06 PM [facility] Station ID: [id number]
[2021-07-23] MEDS ORDERED: CALCIUM CHLORIDE ABBOJECT IV ONE (20:00)
[2021-07-23] MEDS ORDERED: SODIUM CHLORIDE 0.9% IV ONE (20:00)
[2021-07-24] MEDS ORDERED: NALOXONE 0.4 MG/ML VIAL IVP ONE (01:07)
[2021-07-24] MEDS ORDERED: FLUMAZENIL 0.1 MG/1 ML 5 ML MDV IVP ONE (01:14)
[2021-07-24] MEDS ORDERED: HYDROmorphone 1 MG/ML CARPUJECT IVP PRN (01:15)
[2021-07-24 01:40] LABS: ABG BASE EXCESS -9.6 mmol/L (-2.0-3.0); ABG HCO3 16.9 mmol/L (22.0-26.0); ABG PCO2 39 mmHg (34-45); ABG PH 7.26 (7.35-7.45); ABG TCO2 18.1 MMOL/L (21.0-29.0); ALLEN TEST POSITIVE
[2021-07-24 01:43] LABS: ABG OXYGEN SATURATION 82 % (94-98); ABG PO2 48 mmHg (80-100)
[2021-07-24 02:02] LABS: ABG BASE EXCESS -9.4 mmol/L (-2.0-3.0); ABG HCO3 16.2 mmol/L (22.0-26.0); ABG PCO2 34 mmHg (34-45); ABG PH 7.29 (7.35-7.45); ABG TCO2 17.2 MMOL/L (21.0-29.0); ALLEN TEST POSITIVE
[2021-07-24 02:05] LABS: ABG OXYGEN SATURATION 77 % (94-98); ABG PO2 41 mmHg (80-100)
[2021-07-24] MEDS: ceFAZolin 1 GM in SODIUM CHLORIDE 0.9% 100ML 100 ML IV SCH ×2 (02:30→14:05)
[2021-07-24] MEDS: SODIUM CHLORIDE FLUSH 0.9% 10 ML SYRINGE IVP SCH ×3 (03:16→17:00)
[2021-07-24] MEDS: SODIUM CHLORIDE 0.9% 1,000 ML IV SCH ×5 (03:16→23:38)
[2021-07-24 04:58] LABS: CALCIUM 8.2 mg/dL (8.5-10.3); CREATININE 4.4 mg/dL (0.6-1.2); POTASSIUM 5.4 mmol/L (3.5-5.0)
[2021-07-24] MEDS: methocarbamoL 500 MG TABLET PO SCH (05:30)
[2021-07-24] MEDS: PANTOPRAZOLE 40 MG TABLET PO SCH (05:31)
[2021-07-24] MEDS ORDERED: INSULIN REGULAR HUMAN 300 UNIT/3 ML VIAL IVP ONE (07:07)
[2021-07-24] MEDS ORDERED: DEXTROSE 50% ABBOJECT 25 GM/50 ML SYRINGE IVP ONE (07:07)
--- NOTE | 2021-07-24 07:08 | PROVIDER PROGRESS NOTE ---
Assessment/Plan - Problem List (1) Hypovolemic shock Assessment/Plan: Pre-renal due to intravascular volume depletion Patient was given a total of about 6 L of normal saline yesterday. IV hydration decreased to 60 mL/h due to fluid overload and requiring supplemental oxygen. Patient is on Levophed. (2) Acute kidney injury (DONN) with acute tubular necrosis (ATN) Assessment/Plan: Likely prerenal due to intravascular volume depletion. Patient is oliguric/anuric. Over the past 24 hours he has had less than 250ml of urine output total Creatinine this morning was 4.4, BUN 62, estimated GFR 13. Bicarbonate 17 Patient is currently on normal saline at 60 mL/h. I spoke with conference specialist Dr. Alton Agudelo at [facility] who recommended giving a dose of Lasix IV. Lasix 40 mg IV x1 was given without any significant output CT of the abdomen/pelvis without contrast was done to rule out possible obstruction/hydronephrosis The kidneys were normal in size without hydronephrosis or nephrolithiasis With currently attempting to transfer the patient for higher level of care to include a nephrology consult. Patient would potentially need hemodialysis for a period of time. He is currently on a waiting list at [facility] and [place]. Waiting to present the patient's case to a physician. (3) Acute respiratory failure with hypoxia Assessment/Plan: This was likely due to volume overload from aggressive IV hydration on 07/23/2021. However CT of the abdomen pelvis done on 07/24/2021 showed small bilateral pleural effusion, bibasilar consolidations and patchy groundglass opacity at the lung bases for which pneumonia could be a possibility. Patient was given Lasix 40 mg IV x1 without any significant effect. Patient spiked a temperature of 38.2. Considering a white count of 13.3 and radiologic findings, blood cultures were drawn and patient was started on cefazolin. We will also add Flagyl IV. (4) Encephalopathy acute Assessment/Plan: Etiology undetermined. CT of the brain without contrast was negative for any acute intracranial process He normally drinks 1 bottle of wine daily. Last drink was over 48 hours ago. CIWA protocol initiated. He was very somnolent this morning. This was likely secondary to Ativan administered overnight. Patient was given flumazenil overnight due to his level of sedation and hypoxia He responded to the flumazenil. (5) Ventral hernia Assessment/Plan: Status post laparoscopic ventral repair. Postop day #2. General surgery managing. Pain medication as needed with dilaudid, oxycodone and tylenol. CT abdomen/pelvis done today 07/24/2021 to assess the patient's kidneys showed Proximal small bowel is prominent. No transition point. This could be seen in ileus or developing small bowel obstruction. Will monitor closely. Small ventral abdominal hernia containing bowel also noted. Anasarca reported. Postsurgical gas within the abdominal wall. Moderate volume of ascites was noted. (6) Elevated troponin Assessment/Plan: Likely demand ischemia from hypovolemic shock. Systolic blood pressure was as low as 60. Troponin was 40.9 then 54.2 then 59.2 2D echocardiogram showed left ventricular size was normal. Left ventricular wall thickness normal. Overall left ventricular systolic function was normal with an ejection fraction of 55 to 60%. There was no evidence of aortic stenosis aortic regurgitation mitral stenosis or mitral regurgitation. RVSP was 34 mmHg. A large sized left pleural effusion was noted. (7) Alcohol abuse Assessment/Plan: On CIWA protocol. (8) Gout Assessment/Plan: We will hold patient's allopurinol for now due to acute kidney injury. - Current Meds Current Meds: Current Medications Generic Name Dose Route Start Last Admin Trade Name Freq PRN Reason Stop Dose Admin Allopurinol 100 mg 07/22/21 09:00 07/23/21 08:07 Allopurinol 100 Mg Tablet PO 100 mg DAILY ADELA Administration Docusate Sodium 200 mg 07/22/21 09:00 07/23/21 08:07 Docusate Sodium 100 Mg Capsule PO 200 mg DAILY ADELA Administration Enoxaparin Sodium 40 mg 07/23/21 09:00 07/23/21 08:08 Enoxaparin 40 Mg/0.4 Ml Syringe SUBQ 40 mg DAILY ADELA Administration Gabapentin 300 mg 07/22/21 14:00 07/23/21 21:12 Gabapentin 300 Mg Capsule PO 300 mg BID ADELA Administration Sodium Chloride 1,000 mls @ 100 mls/hr 07/21/21 15:00 07/24/21 03:16 Normal Saline 0.9% IV Not Given .Q10H ADELA Sodium Chloride 1,000 mls @ 125 mls/hr 07/23/21 09:00 07/24/21 06:14 Normal Saline 0.9% IV 07/25/21 23:59 Not Given .Q8H ADELA Cefazolin Sodium 1 gm/ Sodium 100 mls @ 200 mls/hr 07/23/21 14:00 07/24/21 03:17 Chloride IV Infused Q12H ADELA Infusion Norepinephrine Bitartrate 8 mg 250 mls @ 15 mls/hr 07/23/21 16:00 07/24/21 06:00 / Dextrose IV 14 mcg/min .[id number] ADELA 26.25 mls/hr Titration Protocol 8 MCG/MIN Sodium Chloride 1,000 mls @ 60 mls/hr 07/24/21 06:00 07/24/21 06:12 Normal Saline 0.9% IV 60 mls/hr .[id number] ADELA Administration Lorazepam 1 mg 07/23/21 15:32 07/23/21 23:29 Lorazepam 2 Mg/Ml Vial IVP 1 mg Q30M PRN Administration CIWA >8 Protocol Methocarbamol 500 mg 07/22/21 14:00 07/24/21 05:30 Methocarbamol 500 Mg Tablet PO Not Given Q8HR ADELA Mineral Oil 30 ml 07/22/21 09:00 07/23/21 08:08 Mineral Oil 473 Ml Bottle PO 30 ml DAILY ADELA Administration Nicotine 1 patch 07/22/21 09:00 07/23/21 07:38 Nicotine 7 Mg Patch TOP Not Given DAILY ADELA Oxycodone HCl 5 mg 07/21/21 14:32 07/23/21 01:22 Oxycodone 5 Mg Tablet PO 5 mg Q4HR PRN Administration PAIN Pantoprazole Sodium 40 mg 07/22/21 07:00 07/24/21 05:31 Pantoprazole 40 Mg Tablet PO Not Given QDAC ADELA Sodium Chloride 10 ml 07/21/21 17:00 07/24/21 06:47 Sodium Chloride Flush 0.9% 10 Ml Syringe IVP 10 ml 0100,0900,1700 ADELA Administration Sodium Chloride 10 ml 07/21/21 14:32 07/22/21 19:05 Sodium Chloride Flush 0.9% 10 Ml Syringe IVP 10 ml PRN PRN Administration NEEDED PER PROVIDER ORDERS - Lab Result Fish Bone Diagrams: 07/24/21 04:12 07/24/21 04:12 - Additional Planning My Orders: My Active Orders 07/23/21 15:32 CIWA - AR Score Card [RC] Q4HR LORazepam INJ [Ativan Inj (Vial)] 1 mg IVP Q30M PRN 07/23/21 15:34 Initiate ICU Electrolyte Prot. [RC] QSHIFT 07/23/21 16:00 Dextrose 5% [D5w] 242 ml NORepinephrine [Levophed] 8 mg IV 8 mcg/min 07/24/21 04:12 CBC - COMP BLD CT W/AUTO DIFF [HEME] DAILYLAB 07/24/21 07:07 Dextrose 50% Abboject [Dextrose] 50 ml IVP ONCE ONE Insulin Regular Human [Humulin R] 10 unit IVP ONCE ONE 07/25/21 05:00 BMP - BASIC METABOLIC PANEL [CHEM] DAILYLAB CBC - COMP BLD CT W/AUTO DIFF [HEME] DAILYLAB 07/26/21 05:00 BMP - BASIC METABOLIC PANEL [CHEM] DAILYLAB CBC - COMP BLD CT W/AUTO DIFF [HEME] DAILYLAB 07/27/21 05:00 BMP - BASIC METABOLIC PANEL [CHEM] DAILYLAB CBC - COMP BLD CT W/AUTO DIFF [HEME] DAILYLAB 07/28/21 05:00 BMP - BASIC METABOLIC PANEL [CHEM] DAILYLAB CBC - COMP BLD CT W/AUTO DIFF [HEME] DAILYLAB Subjective - Subjective Patient Reports: Other (Patient was very somnolent this morning at time of exam. He was arousable to painful stimuli. Overnight he is respiratory status worsened and he required up to 15 L of oxygen via oxygen mask. He sounded rhonchorous on auscultation of lungs. He remains anuric for 16 to 20 hours.) Objective Vital Signs: Vital Signs - 24 hr 07/23/21 07/23/21 07/23/21 07:30 08:20 08:30 Temperature 37.1 C Heart Rate [ 92 97 Brachial] Heart Rate [ Monitoring electrodes] Respiratory 20 Rate Blood Pressure 84/56 L 69/47 L 64/42 L [Left Brachial artery] O2 Saturation 92 07/23/21 07/23/21 07/23/21 09:48 10:00 11:00 Temperature 36.9 C Heart Rate [ 89 99 94 Brachial] Heart Rate [ Monitoring electrodes] Respiratory 26 H 23 Rate Blood Pressure 91/52 L 89/52 L 85/61 L [Left Brachial artery] O2 Saturation 90 L 92 07/23/21 07/23/21 07/23/21 12:00 13:00 14:00 Temperature Heart Rate [ 93 106 H 114 H Brachial] Heart Rate [ Monitoring electrodes] Respiratory 30 H 22 28 H Rate Blood Pressure 90/56 L 86/60 L 77/64 L [Left Brachial artery] O2 Saturation 91 L 91 L 91 L 07/23/21 07/23/21 07/23/21 15:00 16:00 17:00 Temperature Heart Rate [ 102 H 87 101 H Brachial] Heart Rate [ Monitoring electrodes] Respiratory 32 H 26 H 24 Rate Blood Pressure 81/54 L 131/82 H 82/55 L [Left Brachial artery] O2 Saturation 94 96 961 H 07/23/21 07/23/21 07/23/21 18:00 19:00 20:00 Temperature 37.1 C Heart Rate [ 100 97 97 Brachial] Heart Rate [ Monitoring electrodes] Respiratory 22 24 24 Rate Blood Pressure 104/63 103/62 97/62 [Left Brachial artery] O2 Saturation 91 L 91 L 91 L 07/23/21 07/23/21 07/23/21 21:00 22:00 23:00 Temperature Heart Rate [ 102 H Brachial] Heart Rate [ 103 H 101 H Monitoring electrodes] Respiratory 29 H 21 19 Rate Blood Pressure 92/68 105/71 106/57 L [Left Brachial artery] O2 Saturation 91 L 94 96 07/23/21 07/24/21 07/24/21 23:30 00:00 01:00 Temperature Heart Rate [ Brachial] Heart Rate [ 101 H 109 H 114 H Monitoring electrodes] Respiratory 21 26 H 24 Rate Blood Pressure 107/59 L 95/62 103/63 [Left Brachial artery] O2 Saturation 97 92 93 07/24/21 07/24/21 07/24/21 02:00 03:00 04:00 Temperature 37.9 C Heart Rate [ Brachial] Heart Rate [ 109 H 100 101 H Monitoring electrodes] Respiratory 24 20 21 Rate Blood Pressure 91/65 97/66 99/68 [Left Brachial artery] O2 Saturation 95 99 99 07/24/21 07/24/21 07/24/21 05:00 06:00 07:00 Temperature Heart Rate [ Brachial] Heart Rate [ 98 97 96 Monitoring electrodes] Respiratory 19 19 18 Rate Blood Pressure 100/62 97/62 99/66 [Left Brachial artery] O2 Saturation 100 100 99 Oxygen O2 Source Oxymask I&O (Last 24 Hrs): Intake and Output Totals x24h 07/22/21 07/23/21 07/24/21 23:59 23:59 23:59 Intake Total 2940.000 7311.958 1272.355 Output Total 725 610 25 Balance 2215.000 6701.958 1247.355 General: Other (Somnolent but arousable to painful stimuli) HEENT: PERRLA, EOMI Neck: Supple, No JVD Neuro: Other (Somnolent) Cardiovascular: Regular rate, No murmurs Respiratory: Chest non-tender, Rhonchi Abdomen: Normal bowel sounds, Soft, Other (tenderness to palpation around surgical sites) Extremities: No clubbing, No cyanosis, No edema, No tenderness/swelling Skin: No rashes, No breakdown, No significant lesion - Results Results: Laboratory Results WBC 9.8 x10^3/uL (4.8-10.8) 07/23/21 14:45 RBC 4.01 10^6/uL (4.70-6.10) L 07/23/21 14:45 Hgb 12.9 g/dL (14.0-18.0) L 07/23/21 14:45 Hct 39.9 % (42.0-52.0) L 07/23/21 14:45 MCV 99.5 fL (80.0-94.0) H 07/23/21 14:45 MCH 32.2 pg (27.0-31.0) H 07/23/21 14:45 MCHC 32.3 g/dL (32.0-36.0) 07/23/21 14:45 RDW 14.2 % (12.0-15.0) 07/23/21 14:45 Plt Count 271 10^3/uL (130-450) 07/23/21 14:45 MPV 10.7 fL (7.4-11.4) 07/23/21 14:45 Neut # (Auto) Not Reportable 07/23/21 14:45 Lymph # (Auto) Not Reportable 07/23/21 14:45 [place] # (Auto) Not Reportable 07/23/21 14:45 Eos # (Auto) Not Reportable 07/23/21 14:45 Baso # (Auto) Not Reportable 07/23/21 14:45 Absolute Nucleated RBC Not Reportable 07/23/21 14:45 Total Counted 100 07/23/21 14:45 Band Neuts % (Manual) 54 % (0-10) H 07/23/21 14:45 Abnorm Lymph % (Manual) 0 % 07/23/21 14:45 Nucleated RBC % Not Reportable 07/23/21 14:45 Neutrophils # (Manual) 9.4 10^3/uL (1.5-6.6) H 07/23/21 14:45 Lymphocytes # (Manual) 0.3 10^3/uL (1.5-3.5) L 07/23/21 14:45 Monocytes # (Manual) 0.1 10^3/uL (0.0-1.0) 07/23/21 14:45 Eosinophils # (Manual) 0.0 10^3/uL (0-0.7) 07/23/21 14:45 Basophils # (Manual) 0.0 10^3/uL (0-0.1) 07/23/21 14:45 Differential Comment MANUAL DIFFERENTIAL 07/23/21 14:45 Manual Slide Review Indicated 07/23/21 14:45 WBC Morphology NORMAL APPEARANCE (NORMAL) 07/22/21 08:41 Platelet Estimate NORMAL (130-450,000) (NORMAL) 07/23/21 14:45 Platelet Morphology 1+ GIANT PLATELETS (NORMAL) 07/23/21 14:45 RBC Morph Micro Appear NORMAL APPEARANCE (NORMAL) 07/23/21 14:45 Bld Gas Analysis Time 0200 07/24/21 01:56 Sample Site RIGHT RADIAL 07/24/21 01:56 ABG pH 7.29 (7.35-7.45) L 07/24/21 01:56 ABG pCO2 34 mmHg (34-45) 07/24/21 01:56 ABG pO2 41 mmHg (80-100) L* 07/24/21 01:56 ABG HCO3 16.2 mmol/L (22.0-26.0) L 07/24/21 01:56 ABG Total CO2 17.2 MMOL/L (21.0-29.0) L 07/24/21 01:56 ABG O2 Saturation 77 % (94-98) L* 07/24/21 01:56 ABG Base Excess -9.4 mmol/L (-2.0-3.0) L 07/24/21 01:56 Brooks Test POSITIVE 07/24/21 01:56 VBG pH 7.274 (7.31-7.41) L 07/23/21 11:19 Ionized Calcium 0.99 mmol/L (1.15-1.33) L 07/23/21 11:19 O2 Delivery Device OXYMASK 07/24/21 01:56 FiO2 10.00 07/24/21 01:56 Sodium 133 mmol/L (135-145) L 07/24/21 04:12 Potassium 5.4 mmol/L (3.5-5.0) H 07/24/21 04:12 Chloride 105 mmol/L (101-111) 07/24/21 04:12 Carbon Dioxide 17 mmol/L (21-32) L 07/24/21 04:12 Anion Gap 11.0 (6-13) 07/24/21 04:12 BUN 62 mg/dL (6-20) H 07/24/21 04:12 Creatinine 4.4 mg/dL (0.6-1.2) H 07/24/21 04:12 Estimated GFR (MDRD) 13 (>89) L 07/24/21 04:12 Glucose 117 mg/dL (70-100) H 07/24/21 04:12 Lactic Acid 1.5 mmol/L (0.5-2.2) 07/24/21 01:17 Calcium 8.2 mg/dL (8.5-10.3) L 07/24/21 04:12 Ionized Calcium YES 07/23/21 11:19 Phosphorus 3.0 mg/dL (2.5-4.6) 07/23/21 14:45 Magnesium 1.4 mg/dL (1.7-2.8) L 07/23/21 14:45 Total Bilirubin 1.4 mg/dL (0.2-1.0) H 07/23/21 14:45 AST 28 IU/L (10-42) 07/23/21 14:45 ALT 15 IU/L (10-60) 07/23/21 14:45 Alkaline Phosphatase 33 IU/L (42-121) L 07/23/21 14:45 Troponin I High Sens 59.2 ng/L (2.3-19.7) H* 07/24/21 01:17 B-Natriuretic Peptide 221 pg/mL (5-100) H 07/24/21 04:12 Total Protein 5.7 g/dL (6.7-8.2) L 07/23/21 14:45 Albumin 2.3 g/dL (3.2-5.5) L 07/23/21 14:45 Globulin 3.4 g/dL (2.1-4.2) 07/23/21 14:45 Albumin/Globulin Ratio 0.7 (1.0-2.2) L 07/23/21 14:45 Nasal Screen MRSA (PCR) NEGATIVE (NEGATIVE) 07/23/21 11:01 - Procedures Procedures: Procedures CHOLECYSTECTOMY (05/22/13) CLOSED ENDOSCOPIC BIOPSY OF LARGE INTESTINE (12/28/12) COLONOSCOPY (07/12/14) ENDOSC POLYPECTOMY OF LG INTEST (12/28/12) EXCISION OF DUODENUM, ENDO, DIAGN (09/07/19) EXCISION OF ESOPHAGOGASTRIC JUNCTION, ENDO, DIAGN (09/07/19) EXCISION OF STOMACH, ENDO, DIAGN (09/07/19) INJECT/INFUSE NEC (12/28/12) INSPECTION OF LOWER INTESTINAL TRACT, ENDO (09/07/19) OPEN AND OTHER RIGHT HEMICOLECTOMY (05/22/13) REPOSITION LEFT RADIUS WITH INT FIX, OPEN APPROACH (12/21/17) ABX Reporting Has patient been on IV antibiotics over the past 48 hours?: Yes
--- NOTE | 2021-07-24 07:50 | XRAY Report ---
PROCEDURE: Chest 1 View X-Ray INDICATIONS: O2 desats TECHNIQUE: One view of the chest was acquired. COMPARISON: 07/23/21 FINDINGS: Surgical changes and devices: Right IJ line, projecting to the proximal right atrium, retracted from previous location. Lungs and pleura: Continued congestive heart failure. Bibasilar pleural effusions and atelectasis. Im proved pulmonary edema. Mediastinum: Mediastinal contours appear normal. Cardiomegaly. Bones and chest wall: No suspicious bony lesions. Overlying soft tissues appear unremarkable. IMPRESSION: 1. Right IJ line projects approximately right atrium. 2. Continued congestive heart failure. However, pulmonary edema is improving. Reviewed by: Edmond Arredondo MD on 07/24/2021 7:49 AM PST Approved by: Edmond Arredondo MD on 07/24/2021 7:49 AM PST Station ID: [id number]
[2021-07-24 09:13] LABS: RED BLOOD COUNT 3.75 10^6/uL (4.70-6.10); WHITE BLOOD COUNT 13.9 x10^3/uL (4.8-10.8)
[2021-07-24 09:14] LABS: BASOPHILS % (AUTO) 0.9 %; EOSINOPHILS % (AUTO) 0.3 %; HGB - HEMOGLOBIN 11.9 g/dL (14.0-18.0); LYMPHOCYTES % (AUTO) 3.2 %; MEAN CORPUSCULAR HEMOGLOBIN 31.7 pg (27.0-31.0); MEAN CORPUSCULAR HGB CONC 32.2 g/dL (32.0-36.0); MEAN CORPUSCULAR VOLUME 98.7 fL (80.0-94.0); MONOCYTES % (AUTO) 3.6 %; NEUTROPHILS % (AUTO) 91.4 %; PLT - PLATELET COUNT 288 10^3/uL (130-450); RED CELL DISTRIBUTION WIDTH 14.1 % (12.0-15.0)
[2021-07-24 09:15] LABS: SLIDE REVIEW? Indicated
[2021-07-24 09:17] LABS: ABNORMAL LYMPHS % (MANUAL) 0 %
[2021-07-24 09:18] LABS: BAND NEUTROPHILS % (MANUAL) 43 %; DIFFERENTIAL COMMENT MANUAL DIFFERENTIAL; LYMPHOCYTES # (MANUAL) 0.7 10^3/uL (1.5-3.5); LYMPHOCYTES % (MANUAL) 5 %; MONOCYTES # (MANUAL) 0.7 10^3/uL (0.0-1.0); NEUTROPHILS # (MANUAL) 12.5 10^3/uL (1.5-6.6)
[2021-07-24] MEDS ORDERED: methocarbamoL 500 MG TABLET PO PRN (09:25)
[2021-07-24] MEDS: ENOXAPARIN 40 MG/0.4 ML SYRINGE SUBQ SCH (09:30)
[2021-07-24] MEDS: NICOTINE 7 MG PATCH TOP SCH (09:30)
[2021-07-24] MEDS: oxyCODONE 5 MG TABLET PO PRN ×2 (10:19→21:08)
[2021-07-24] MEDS: GABAPENTIN 300 MG CAPSULE PO SCH ×2 (10:20→21:02)
[2021-07-24] MEDS: DOCUSATE SODIUM 100 MG CAPSULE PO SCH (10:35)
[2021-07-24] MEDS: MINERAL OIL 473 ML BOTTLE PO SCH (10:36)
[2021-07-24] MEDS ORDERED: FUROSEMIDE 40 MG/4 ML VIAL IVP STA (10:50)
[2021-07-24] MEDS: SODIUM CHLORIDE FLUSH 0.9% 10 ML SYRINGE IVP PRN (11:15)
--- NOTE | 2021-07-24 13:41 | PROVIDER PROGRESS NOTE ---
Subjective - General Admit Date: 07/21/21 Procedure Date: 07/21/21 Post Op Days: 3 Procedure Performed: Laparoscopic ventral hernia repair - Review of Systems Wound/Incisions: positive: Other (Bruising is apparent. Wounds are closed. Drainage on the dressings last evening has stopped this morning.) Gastrointestinal: positive: Other (Abdomen is bruised knotting consistent with w here the mesh has been tacked into place. He does have hypoactive bowel tones. There is palpable seroma on the surface of the mesh but not unexpected in the situation. No leaking from any of the incisions. No evidence of erythema.) - Other Other Information/Narrative: Easily arousable to discuss problems with. Reports his abdomen is still sore but thinks it is getting better. Wants to understand what is going on. We talked about the fact that his surgery seems to have gone well. He does have a seroma but that is an expected part of this process. Reasons that I do not understand well, he became hypotensive on the second postoperative night and developed fulminant oliguric renal failure.Even with aggressive resuscitation he now has a climbing creatinine and negligible urine output. The hospitalist has been managing him and has been consulting with the tipple operator. I did speak to Mr. Warren today about the possibility that he might need dialysis for a time to help his kidneys recover. He is not aware of any prior episodes of kidney problems or kidney failure. He does smoke. His baseline creatinine outside the hospital is about 1.4-1.6. He admits he does not drink very much at home. He says he just does not really like to drink water.He drops off to sleep peacefully. He is clearheaded when awake.He seems to be in agreement with what ever plans are necessary to try to help his kidneys back to function. Objective - Patient Data Vital Signs: Vital Signs x48h Temp Pulse Resp BP Pulse Ox 07/24/21 13:25 37.9 C 07/24/21 13:00 112 H 22 98/74 93 07/24/21 12:00 100 26 H 101/66 94 07/24/21 11:00 103 H 22 126/74 93 07/24/21 10:00 107 H 32 H 116/79 93 07/24/21 09:00 96 17 104/62 95 07/24/21 08:00 36.6 C 102 H 22 101/61 99 07/24/21 07:00 96 18 99/66 99 07/24/21 06:00 97 19 97/62 100 Intake & Output: Intake and Output Totals x24h 07/22/21 07/23/21 07/24/21 23:59 23:59 23:59 Intake Total 2940.000 7311.958 2057.667 Output Total 725 610 67 Balance 2215.000 6701.958 1990.667 - Lab Results Lab Results: 07/24/21 04:12 07/24/21 04:12 Other Lab Results: Lab Results x24hrs 07/24/21 07/24/21 07/24/21 Range/Units 04:12 04:12 04:12 WBC 13.9 H (4.8-10.8) x10^3/uL RBC 3.75 L (4.70-6.10) 10^6/uL Hgb 11.9 L (14.0-18.0) g/dL Hct 37.0 L (42.0-52.0) % MCV 98.7 H (80.0-94.0) fL MCH 31.7 H (27.0-31.0) pg MCHC 32.2 (32.0-36.0) g/dL RDW 14.1 (12.0-15.0) % Plt Count 288 (130-450) 10^3/uL MPV 11.0 (7.4-11.4) fL Neut # (Auto) SYSTEMS SOFTWARE DEVELOPER Lymph # (Auto) SYSTEMS SOFTWARE DEVELOPER [place] # (Auto) SYSTEMS SOFTWARE DEVELOPER Eos # (Auto) SYSTEMS SOFTWARE DEVELOPER Baso # (Auto) SYSTEMS SOFTWARE DEVELOPER Absolute Nucleated RBC SYSTEMS SOFTWARE DEVELOPER Total Counted 100 Band Neuts % (Manual) 43 H (0 - 10) % Abnorm Lymph % (Manual) 0 % Nucleated RBC % SYSTEMS SOFTWARE DEVELOPER Neutrophils # (Manual) 12.5 H (1.5-6.6) 10^3/uL Lymphocytes # (Manual) 0.7 L (1.5-3.5) 10^3/uL Monocytes # (Manual) 0.7 (0.0-1.0) 10^3/uL Eosinophils # (Manual) 0.0 (0-0.7) 10^3/uL Basophils # (Manual) 0.0 (0-0.1) 10^3/uL Differential Comment MANUAL DIFFERENTIAL Manual Slide Review Indicated Platelet Estimate (NORMAL) Platelet Morphology (NORMAL) RBC Morph Micro Appear (NORMAL) Bld Gas Analysis Time Sample Site ABG pH (7.35-7.45) ABG pCO2 (34-45) mmHg ABG pO2 (80-100) mmHg ABG HCO3 (22.0-26.0) mmol/L ABG Total CO2 (21.0-29.0) MMOL/L ABG O2 Saturation (94-98) % ABG Base Excess (-2.0-3.0) mmol/L Brooks Test O2 Delivery Device FiO2 Sodium 133 L (135-145) mmol/L Potassium 5.4 H (3.5-5.0) mmol/L Chloride 105 (101-111) mmol/L Carbon Dioxide 17 L (21-32) mmol/L Anion Gap 11.0 (6-13) BUN 62 H (6-20) mg/dL Creatinine 4.4 H (0.6-1.2) mg/dL Estimated GFR (MDRD) 13 L (>89) Glucose 117 H (70-100) mg/dL Lactic Acid (0.5-2.2) mmol/L Calcium 8.2 L (8.5-10.3) mg/dL Phosphorus (2.5-4.6) mg/dL Magnesium (1.7-2.8) mg/dL Total Bilirubin (0.2-1.0) mg/dL AST (10-42) IU/L ALT (10-60) IU/L Alkaline Phosphatase (42-121) IU/L Troponin I High Sens (2.3-19.7) ng/L B-Natriuretic Peptide 221 H (5-100) pg/mL Total Protein (6.7-8.2) g/dL Albumin (3.2-5.5) g/dL Globulin (2.1-4.2) g/dL Albumin/Globulin Ratio (1.0-2.2) Nasal Screen MRSA (PCR) (NEGATIVE) 07/24/21 07/24/21 07/24/21 Range/Units 01:56 01:36 01:17 WBC (4.8-10.8) x10^3/uL RBC (4.70-6.10) 10^6/uL Hgb (14.0-18.0) g/dL Hct (42.0-52.0) % MCV (80.0-94.0) fL MCH (27.0-31.0) pg MCHC (32.0-36.0) g/dL RDW (12.0-15.0) % Plt Count (130-450) 10^3/uL MPV (7.4-11.4) fL Neut # (Auto) Lymph # (Auto) [place] # (Auto) Eos # (Auto) Baso # (Auto) Absolute Nucleated RBC Total Counted Band Neuts % (Manual) (0 - 10) % Abnorm Lymph % (Manual) % Nucleated RBC % Neutrophils # (Manual) (1.5-6.6) 10^3/uL Lymphocytes # (Manual) (1.5-3.5) 10^3/uL Monocytes # (Manual) (0.0-1.0) 10^3/uL Eosinophils # (Manual) (0-0.7) 10^3/uL Basophils # (Manual) (0-0.1) 10^3/uL Differential Comment Manual Slide Review Platelet Estimate (NORMAL) Platelet Morphology (NORMAL) RBC Morph Micro Appear (NORMAL) Bld Gas Analysis Time 0200 0138 Sample Site RIGHT RADIAL ABG pH 7.29 L 7.26 L (7.35-7.45) ABG pCO2 34 39 (34-45) mmHg ABG pO2 41 L* 48 L* (80-100) mmHg ABG HCO3 16.2 L 16.9 L (22.0-26.0) mmol/L ABG Total CO2 17.2 L 18.1 L (21.0-29.0) MMOL/L ABG O2 Saturation 77 L* 82 L* (94-98) % ABG Base Excess -9.4 L -9.6 L (-2.0-3.0) mmol/L Brooks Test POSITIVE POSITIVE O2 Delivery Device OXYMASK OXYMASK FiO2 10.00 15.00 Sodium (135-145) mmol/L Potassium (3.5-5.0) mmol/L Chloride (101-111) mmol/L Carbon Dioxide (21-32) mmol/L Anion Gap (6-13) BUN (6-20) mg/dL Creatinine (0.6-1.2) mg/dL Estimated GFR (MDRD) (>89) Glucose (70-100) mg/dL Lactic Acid (0.5-2.2) mmol/L Calcium (8.5-10.3) mg/dL Phosphorus (2.5-4.6) mg/dL Magnesium (1.7-2.8) mg/dL Total Bilirubin (0.2-1.0) mg/dL AST (10-42) IU/L ALT (10-60) IU/L Alkaline Phosphatase (42-121) IU/L Troponin I High Sens 59.2 H* (2.3-19.7) ng/L B-Natriuretic Peptide (5-100) pg/mL Total Protein (6.7-8.2) g/dL Albumin (3.2-5.5) g/dL Globulin (2.1-4.2) g/dL Albumin/Globulin Ratio (1.0-2.2) Nasal Screen MRSA (PCR) (NEGATIVE) 07/24/21 07/23/21 07/23/21 Range/Units 01:17 14:45 14:45 WBC (4.8-10.8) x10^3/uL RBC (4.70-6.10) 10^6/uL Hgb (14.0-18.0) g/dL Hct (42.0-52.0) % MCV (80.0-94.0) fL MCH (27.0-31.0) pg MCHC (32.0-36.0) g/dL RDW (12.0-15.0) % Plt Count (130-450) 10^3/uL MPV (7.4-11.4) fL Neut # (Auto) Lymph # (Auto) [place] # (Auto) Eos # (Auto) Baso # (Auto) Absolute Nucleated RBC Total Counted Band Neuts % (Manual) (0 - 10) % Abnorm Lymph % (Manual) % Nucleated RBC % Neutrophils # (Manual) (1.5-6.6) 10^3/uL Lymphocytes # (Manual) (1.5-3.5) 10^3/uL Monocytes # (Manual) (0.0-1.0) 10^3/uL Eosinophils # (Manual) (0-0.7) 10^3/uL Basophils # (Manual) (0-0.1) 10^3/uL Differential Comment Manual Slide Review Platelet Estimate (NORMAL) Platelet Morphology (NORMAL) RBC Morph Micro Appear (NORMAL) Bld Gas Analysis Time Sample Site ABG pH (7.35-7.45) ABG pCO2 (34-45) mmHg ABG pO2 (80-100) mmHg ABG HCO3 (22.0-26.0) mmol/L ABG Total CO2 (21.0-29.0) MMOL/L ABG O2 Saturation (94-98) % ABG Base Excess (-2.0-3.0) mmol/L Brooks Test O2 Delivery Device FiO2 Sodium 134 L (135-145) mmol/L Potassium 4.6 (3.5-5.0) mmol/L Chloride 104 (101-111) mmol/L Carbon Dioxide 18 L (21-32) mmol/L Anion Gap 12.0 (6-13) BUN 49 H (6-20) mg/dL Creatinine 3.5 H (0.6-1.2) mg/dL Estimated GFR (MDRD) 17 L (>89) Glucose 125 H (70-100) mg/dL Lactic Acid 1.5 (0.5-2.2) mmol/L Calcium 7.2 L (8.5-10.3) mg/dL Phosphorus 3.0 (2.5-4.6) mg/dL Magnesium 1.4 L (1.7-2.8) mg/dL Total Bilirubin 1.4 H (0.2-1.0) mg/dL AST 28 (10-42) IU/L ALT 15 (10-60) IU/L Alkaline Phosphatase 33 L (42-121) IU/L Troponin I High Sens (2.3-19.7) ng/L B-Natriuretic Peptide (5-100) pg/mL Total Protein 5.7 L (6.7-8.2) g/dL Albumin 2.3 L (3.2-5.5) g/dL Globulin 3.4 (2.1-4.2) g/dL Albumin/Globulin Ratio 0.7 L (1.0-2.2) Nasal Screen MRSA (PCR) (NEGATIVE) 07/23/21 07/23/21 Range/Units 14:45 11:01 WBC 9.8 (4.8-10.8) x10^3/uL RBC 4.01 L (4.70-6.10) 10^6/uL Hgb 12.9 L (14.0-18.0) g/dL Hct 39.9 L (42.0-52.0) % MCV 99.5 H (80.0-94.0) fL MCH 32.2 H (27.0-31.0) pg MCHC 32.3 (32.0-36.0) g/dL RDW 14.2 (12.0-15.0) % Plt Count 271 (130-450) 10^3/uL MPV 10.7 (7.4-11.4) fL Neut # (Auto) Not Reportable Lymph # (Auto) Not Reportable [place] # (Auto) Not Reportable Eos # (Auto) Not Reportable Baso # (Auto) Not Reportable Absolute Nucleated RBC Not Reportable Total Counted 100 Band Neuts % (Manual) 54 H (0 - 10) % Abnorm Lymph % (Manual) 0 % Nucleated RBC % Not Reportable Neutrophils # (Manual) 9.4 H (1.5-6.6) 10^3/uL Lymphocytes # (Manual) 0.3 L (1.5-3.5) 10^3/uL Monocytes # (Manual) 0.1 (0.0-1.0) 10^3/uL Eosinophils # (Manual) 0.0 (0-0.7) 10^3/uL Basophils # (Manual) 0.0 (0-0.1) 10^3/uL Differential Comment MANUAL DIFFERENTIAL Manual Slide Review Indicated Platelet Estimate NORMAL (130-450,000) (NORMAL) Platelet Morphology 1+ GIANT PLATELETS (NORMAL) RBC Morph Micro Appear NORMAL APPEARANCE (NORMAL) Bld Gas Analysis Time Sample Site ABG pH (7.35-7.45) ABG pCO2 (34-45) mmHg ABG pO2 (80-100) mmHg ABG HCO3 (22.0-26.0) mmol/L ABG Total CO2 (21.0-29.0) MMOL/L ABG O2 Saturation (94-98) % ABG Base Excess (-2.0-3.0) mmol/L Brooks Test O2 Delivery Device FiO2 Sodium (135-145) mmol/L Potassium (3.5-5.0) mmol/L Chloride (101-111) mmol/L Carbon Dioxide (21-32) mmol/L Anion Gap (6-13) BUN (6-20) mg/dL Creatinine (0.6-1.2) mg/dL Estimated GFR (MDRD) (>89) Glucose (70-100) mg/dL Lactic Acid (0.5-2.2) mmol/L Calcium (8.5-10.3) mg/dL Phosphorus (2.5-4.6) mg/dL Magnesium (1.7-2.8) mg/dL Total Bilirubin (0.2-1.0) mg/dL AST (10-42) IU/L ALT (10-60) IU/L Alkaline Phosphatase (42-121) IU/L Troponin I High Sens (2.3-19.7) ng/L B-Natriuretic Peptide (5-100) pg/mL Total Protein (6.7-8.2) g/dL Albumin (3.2-5.5) g/dL Globulin (2.1-4.2) g/dL Albumin/Globulin Ratio (1.0-2.2) Nasal Screen MRSA (PCR) NEGATIVE (NEGATIVE) - Current Medications Current Medications: Current Medications Generic Name Dose Route Start Last Admin Trade Name Freq PRN Reason Stop Dose Admin Allopurinol 100 mg 07/22/21 09:00 07/23/21 08:07 Allopurinol 100 Mg Tablet PO 100 mg DAILY ADELA Administration Docusate Sodium 200 mg 07/22/21 09:00 07/24/21 10:35 Docusate Sodium 100 Mg Capsule PO Not Given DAILY ADELA Enoxaparin Sodium 40 mg 07/23/21 09:00 07/24/21 09:30 Enoxaparin 40 Mg/0.4 Ml Syringe SUBQ 40 mg DAILY ADELA Administration Gabapentin 300 mg 07/22/21 14:00 07/24/21 10:20 Gabapentin 300 Mg Capsule PO 300 mg BID ADELA Administration Cefazolin Sodium 1 gm/ Sodium 100 mls @ 200 mls/hr 07/23/21 14:00 07/24/21 03:17 Chloride IV Infused Q12H ADELA Infusion Norepinephrine Bitartrate 8 mg 250 mls @ 15 mls/hr 07/23/21 16:00 07/24/21 13:00 / Dextrose IV 12 mcg/min .[id number] ADELA 22.5 mls/hr Titration Protocol 8 MCG/MIN Sodium Chloride 1,000 mls @ 60 mls/hr 07/24/21 06:00 07/24/21 13:00 Normal Saline 0.9% IV 60 mls/hr .[id number] ADELA Infusion Lorazepam 1 mg 07/23/21 15:32 07/23/21 23:29 Lorazepam 2 Mg/Ml Vial IVP 1 mg Q30M PRN Administration CIWA >8 Protocol Mineral Oil 30 ml 07/22/21 09:00 07/24/21 10:36 Mineral Oil 473 Ml Bottle PO Not Given DAILY ADELA Nicotine 1 patch 07/22/21 09:00 07/24/21 09:30 Nicotine 7 Mg Patch TOP 1 patch DAILY ADELA Administration Oxycodone HCl 5 mg 07/21/21 14:32 07/24/21 10:19 Oxycodone 5 Mg Tablet PO 5 mg Q4HR PRN Administration PAIN Pantoprazole Sodium 40 mg 07/22/21 07:00 07/24/21 05:31 Pantoprazole 40 Mg Tablet PO Not Given QDAC ADELA Sodium Chloride 10 ml 07/21/21 17:00 07/24/21 06:47 Sodium Chloride Flush 0.9% 10 Ml Syringe IVP 10 ml 0100,0900,1700 ADELA Administration Sodium Chloride 10 ml 07/21/21 14:32 07/24/21 11:15 Sodium Chloride Flush 0.9% 10 Ml Syringe IVP 10 ml PRN PRN Administration NEEDED PER PROVIDER ORDERS - Physical Exam Neurologic/Psychiatric: positive: Oriented x3 (Was able to talk to the nurse regarding who his nelson of county attorney are and who was legally capable of making decisions.) ABX Reporting Has patient been on IV antibiotics over the past 48 hours?: Yes Impression/Plan - Problem List Problem List: Oliguric renal failure beginning on postop day 2 after repair of a large ventral hernia from a laparoscopic approach.I appreciate the hospitalist service so very much. I am in agreement with any transfer plans that they bring would feel appropriate. From a surgical perspective, the operation was limited to the a bdominal wall with very minimal involvement of any bowel. There were minimal bowel adhesions to the abdominal wall and primarily just omental tissue. Most of it we were able to wipe down so there was very little true dissection.I think it very unlikely that there was any renal injury. He does have a significant sized seroma and evidence of third spacing which may have contributed to his hypotension with fluid sequestration.
[2021-07-24] MEDS ORDERED: ACETAMINOPHEN 1,000 MG/100 ML 100 ML IV PRN (14:13)
--- NOTE | 2021-07-24 17:05 | CT Report ---
PROCEDURE: Abdomen/Pelvis WO INDICATIONS: acute kidney injury, anuria TECHNIQUE: Noncontrast 5 mm thick sections acquired from the diaphragms to the symphysis. 5 mm coronal and sagi ttal reformats were then performed. For radiation dose reduction, the following was used: automated exposure control, adjustment of mA and/or kV according to patient size. COMPARISON: CT abdomen and pelvis 06/17/2021. FINDINGS: Image quality: Good. Evaluation of the solid parenchymal organs is limited without IV contrast. ABDOMEN: Lung bases: Patchy ground glass opacity at the lung bases. Small basilar consolidations. Small bilate ral pleural effusions. There is fluid in the distal esophagus. Central venous catheter projecting at the cavoatrial junction. Heart size is within normal limits. Gynecomastia. Solid organs: Liver and spleen are normal in size. Gallbladder is surgically absent. Pancreas is n ormal in contours. No adrenal nodules. Kidneys are normal in size, without hydronephrosis or nephro lithiasis. Suspect right inferior peripelvic cyst, unchanged. Small cortical cyst. Peritoneum and bowel: Stomach is prominent. Duodenum is prominent. Proximal jejunum is prominent. No transition point demonstrated. The colon is decompressed. Suture material at the right colon. No vol ume of ascites. Trace pneumoperitoneum which is likely postsurgical in nature. Nodes and vessels: No retroperitoneal or mesenteric adenopathy by size criteria. Aorta and inferior vena cava are normal in caliber. Miscellaneous: Ventral abdominal wall staple line. There is a small hernia containing air-fluid level is likely represents a loop of bowel, (/53). There is a [id number] amount of subcutaneous ga s in the ventral abdominal wall, most process of the left abdomen. PELVIS: Genitourinary: Bladder is decompressed with Huddleston catheter. Miscellaneous: Small fat-containing inguinal hernias. Anasarca. No adenopathy. Bones: No suspicious bony lesions. No vertebral body compression fractures. IMPRESSION: 1. Proximal small bowel is prominent. No transition point. This could be seen in ileus or developing small bowel obstruction. 2. Small ventral abdominal hernia containing bowel. Anasarca. Post surgical gas within the abdominal wall. 3. Moderate volume of ascites, new. Trace presumed postsurgical pneumoperitoneum. 4. Small bilateral pleural effusions. Bibasilar consolidations. In addition there is patchy groundgla ss opacity at the lung bases. Possible multifocal pneumonia. Results were communicated to Dr. Jamee Bartlett at 07/24/2021 5:03 PM PST. Reviewed by: Tahir Keller MD on 07/24/2021 5:04 PM PST Approved by: Tahir Keller MD on 07/24/2021 5:04 PM PST Station ID: [id number]
[2021-07-24] MEDS: metroNIDAZOLE 500 MG/100 ML 500 MG/100 ML BAG IV SCH (20:07)
[2021-07-25] MEDS: ceFAZolin 1 GM in SODIUM CHLORIDE 0.9% 100ML 100 ML IV SCH ×2 (02:02→14:46)
[2021-07-25] MEDS: metroNIDAZOLE 500 MG/100 ML 500 MG/100 ML BAG IV SCH ×2 (03:56→12:03)
[2021-07-25 04:21] LABS: B. PARAPERTUSSIS- RESP PCR PAN NOT DETECTED; B. PERTUSSIS- RESP PCR PANEL NOT DETECTED; C. PNEUMONIAE- RESP PCR PANEL NOT DETECTED; CORONAVIRUS 229E-RESP PCR NOT DETECTED; CORONAVIRUS HKU1-RESP PCR NOT DETECTED; CORONAVIRUS NL63-RESP PCR NOT DETECTED; CORONAVIRUS OC43-RESP PCR NOT DETECTED; HUMAN METAPNEUMOVIRUS NOT DETECTED; INFLUENZA A- RESP PCR PANEL NOT DETECTED; INFLUENZA B - RESP PCR PANEL NOT DETECTED; M. PNEUMONIAE- RESP PCR PANEL NOT DETECTED; PARAINFLUENZA VIRUS 1 NOT DETECTED; PARAINFLUENZA VIRUS 2 NOT DETECTED; PARAINFLUENZA VIRUS 3 NOT DETECTED; PARAINFLUENZA VIRUS 4 NOT DETECTED; RHINOVIRUS/ENTEROVIRUS NOT DETECTED; RSV- RESP PCR PANEL NOT DETECTED; SARS-CoV-2 -RESP PCR PANEL NOT DETECTED
[2021-07-25] MEDS: SODIUM CHLORIDE FLUSH 0.9% 10 ML SYRINGE IVP SCH ×2 (04:28→09:29)
[2021-07-25] MEDS: SODIUM CHLORIDE FLUSH 0.9% 10 ML SYRINGE IVP PRN (04:28)
[2021-07-25 05:03] LABS: BASOPHILS % (AUTO) 0.1 %; EOSINOPHILS % (AUTO) 0.4 %; HCT - HEMATOCRIT 33.7 % (42.0-52.0); HGB - HEMOGLOBIN 10.9 g/dL (14.0-18.0); LYMPHOCYTES % (AUTO) 2.4 %; MEAN CORPUSCULAR HEMOGLOBIN 31.9 pg (27.0-31.0); MEAN CORPUSCULAR HGB CONC 32.3 g/dL (32.0-36.0); MEAN CORPUSCULAR VOLUME 98.5 fL (80.0-94.0); MEAN PLATELET VOLUME 10.9 fL (7.4-11.4); MONOCYTES % (AUTO) 3.6 %; NEUTROPHILS % (AUTO) 92.1 %; PLT - PLATELET COUNT 269 10^3/uL (130-450); RED BLOOD COUNT 3.42 10^6/uL (4.70-6.10); RED CELL DISTRIBUTION WIDTH 14.3 % (12.0-15.0); WHITE BLOOD COUNT 15.7 x10^3/uL (4.8-10.8)
[2021-07-25 05:06] LABS: ABNORMAL LYMPHS % (MANUAL) 0 %
[2021-07-25 05:12] LABS: CALCIUM 8.1 mg/dL (8.5-10.3); CREATININE 5.5 mg/dL (0.6-1.2); POTASSIUM 5.5 mmol/L (3.5-5.0)
[2021-07-25 05:22] LABS: BAND NEUTROPHILS % (MANUAL) 45 %; LYMPHOCYTES # (MANUAL) 0.9 10^3/uL (1.5-3.5); LYMPHOCYTES % (MANUAL) 6 %; MONOCYTES # (MANUAL) 0.6 10^3/uL (0.0-1.0); NEUTROPHILS # (MANUAL) 14.1 10^3/uL (1.5-6.6)
[2021-07-25 05:23] LABS: DIFFERENTIAL COMMENT MANUAL DIFFERENTIAL; PLATELET ESTIMATE, MANUAL NORMAL (130-450,000) (NORMAL); PLATELET MORPHOLOGY NORMAL APPEARANCE (NORMAL); RBC MORPHOLOGY (MULTIPLE) NORMAL APPEARANCE (NORMAL); WBC MORPHOLOGY (MULTIPLE) NORMAL APPEARANCE (NORMAL)
[2021-07-25 05:29] LABS: MAGNESIUM 2.2 mg/dL (1.7-2.8); PHOSPHORUS 5.1 mg/dL (2.5-4.6)
[2021-07-25] MEDS: PANTOPRAZOLE 40 MG TABLET PO SCH (06:46)
--- NOTE | 2021-07-25 07:14 | PROVIDER PROGRESS NOTE ---
Assessment/Plan - Current Meds Current Meds: Current Medications Generic Name Dose Route Start Last Admin Trade Name Freq PRN Reason Stop Dose Admin Allopurinol 100 mg 07/22/21 09:00 07/23/21 08:07 Allopurinol 100 Mg Tablet PO 100 mg DAILY ADELA Administration Docusate Sodium 200 mg 07/22/21 09:00 07/24/21 10:35 Docusate Sodium 100 Mg Capsule PO Not Given DAILY ADELA Enoxaparin Sodium 40 mg 07/23/21 09:00 07/24/21 09:30 Enoxaparin 40 Mg/0.4 Ml Syringe SUBQ 40 mg DAILY ADELA Administration Gabapentin 300 mg 07/22/21 14:00 07/24/21 21:02 Gabapentin 300 Mg Capsule PO 300 mg BID ADELA Administration Cefazolin Sodium 1 gm/ Sodium 100 mls @ 200 mls/hr 07/23/21 14:00 07/25/21 02:35 Chloride IV Infused Q12H ADELA Infusion Norepinephrine Bitartrate 8 mg 250 mls @ 15 mls/hr 07/23/21 16:00 07/25/21 06:00 / Dextrose IV 8 mcg/min .[id number] ADELA 15 mls/hr Titration Protocol 8 MCG/MIN Sodium Chloride 1,000 mls @ 60 mls/hr 07/24/21 06:00 07/25/21 06:00 Normal Saline 0.9% IV 60 mls/hr .[id number] ADELA Infusion Acetaminophen 100 mls @ 400 mls/hr 07/24/21 14:13 07/24/21 14:45 Ofirmev IV Infused Q6HR PRN Infusion Pain or Fever > 38C (100.4F) Metronidazole 500 mg in 100 mls @ 100 mls/hr 07/24/21 20:00 07/25/21 05:00 Flagyl 500 Mg/100 Ml IV Infused Q8H ADELA Infusion Lorazepam 1 mg 07/23/21 15:32 07/23/21 23:29 Lorazepam 2 Mg/Ml Vial IVP 1 mg Q30M PRN Administration CIWA >8 Protocol Mineral Oil 30 ml 07/22/21 09:00 07/24/21 10:36 Mineral Oil 473 Ml Bottle PO Not Given DAILY ADELA Nicotine 1 patch 07/22/21 09:00 07/24/21 09:30 Nicotine 7 Mg Patch TOP 1 patch DAILY ADELA Administration Oxycodone HCl 5 mg 07/21/21 14:32 07/24/21 21:08 Oxycodone 5 Mg Tablet PO 5 mg Q4HR PRN Administration PAIN Pantoprazole Sodium 40 mg 07/22/21 07:00 07/25/21 06:46 Pantoprazole 40 Mg Tablet PO 40 mg QDAC ADELA Administration Sodium Chloride 10 ml 07/21/21 17:00 07/25/21 04:28 Sodium Chloride Flush 0.9% 10 Ml Syringe IVP 10 ml 0100,0900,1700 ADELA Administration Sodium Chloride 10 ml 07/21/21 14:32 07/25/21 04:28 Sodium Chloride Flush 0.9% 10 Ml Syringe IVP 20 ml PRN PRN Administration NEEDED PER PROVIDER ORDERS - Lab Result Fish Bone Diagrams: 07/25/21 04:30 07/25/21 04:30 - Additional Planning My Orders: My Active Orders 07/24/21 14:13 Acetaminophen 1,000 mg/100 ml [Ofirmev] 100 ml IV Q6HR 07/24/21 14:28 Blood Culture [CULTURE, BLOOD #1] [RM] Stat 07/24/21 14:35 Blood Culture [CULTURE, BLOOD #2] [RM] Stat 07/24/21 20:00 metroNIDAZOLE 500 MG/100 ML [Flagyl 500 mg/100 ml] 500 mg in 100 ml IV Q8H 07/26/21 05:00 BMP - BASIC METABOLIC PANEL [CHEM] DAILYLAB CBC - COMP BLD CT W/AUTO DIFF [HEME] DAILYLAB 07/27/21 05:00 BMP - BASIC METABOLIC PANEL [CHEM] DAILYLAB CBC - COMP BLD CT W/AUTO DIFF [HEME] DAILYLAB 07/28/21 05:00 BMP - BASIC METABOLIC PANEL [CHEM] DAILYLAB CBC - COMP BLD CT W/AUTO DIFF [HEME] DAILYLAB Objective Vital Signs: Vital Signs - 24 hr 07/24/21 07/24/21 07/24/21 08:00 09:00 10:00 Temperature 36.6 C Heart Rate [ 102 H 96 107 H Monitoring electrodes] Respiratory 22 17 32 H Rate Blood Pressure 101/61 104/62 116/79 [Left Brachial artery] O2 Saturation 99 95 93 07/24/21 07/24/21 07/24/21 11:00 12:00 13:00 Temperature Heart Rate [ 103 H 100 112 H Monitoring electrodes] Respiratory 22 26 H 22 Rate Blood Pressure 126/74 101/66 98/74 [Left Brachial artery] O2 Saturation 93 94 93 07/24/21 07/24/21 07/24/21 13:25 14:00 15:00 Temperature 37.9 C 38.2 C H 37.8 C Heart Rate [ 109 H 109 H Monitoring electrodes] Respiratory 20 20 Rate Blood Pressure 122/71 100/73 [Left Brachial artery] O2 Saturation 92 93 07/24/21 07/24/21 07/24/21 16:00 17:00 18:00 Temperature 37.3 C Heart Rate [ 104 H 95 97 Monitoring electrodes] Respiratory 18 19 17 Rate Blood Pressure 110/62 122/38 L 111/66 [Left Brachial artery] O2 Saturation 91 L 93 952 H 07/24/21 07/24/21 07/24/21 19:00 20:00 21:00 Temperature Heart Rate [ 99 97 101 H Monitoring electrodes] Respiratory 18 18 31 H Rate Blood Pressure 110/62 117/80 109/91 H [Left Brachial artery] O2 Saturation 93 93 88 L 07/24/21 07/24/21 07/25/21 22:00 23:00 00:00 Temperature 37.8 C Heart Rate [ 105 H 103 H 102 H Monitoring electrodes] Respiratory 23 25 H 26 H Rate Blood Pressure 107/67 90/67 96/64 [Left Brachial artery] O2 Saturation 89 L 90 L 90 L 07/25/21 07/25/21 07/25/21 01:00 02:00 03:00 Temperature 37.2 C Heart Rate [ 104 H 104 H 107 H Monitoring electrodes] Respiratory 16 21 22 Rate Blood Pressure 99/63 117/70 95/59 L [Left Brachial artery] O2 Saturation 88 L 89 L 86 L 07/25/21 07/25/21 07/25/21 04:00 05:00 06:00 Temperature Heart Rate [ 104 H 103 H 104 H Monitoring electrodes] Respiratory 20 21 19 Rate Blood Pressure 102/84 H 97/61 94/64 [Left Brachial artery] O2 Saturation 87 L 92 90 L 07/25/21 07:00 Temperature Heart Rate [ 102 H Monitoring electrodes] Respiratory 24 Rate Blood Pressure 105/64 [Left Brachial artery] O2 Saturation 87 L Oxygen O2 Source Oxymask I&O (Last 24 Hrs): Intake and Output Totals x24h 07/23/21 07/24/21 07/25/21 23:59 23:59 23:59 Intake Total 7311.958 3289.980 747.062 Output Total 610 143 93 Balance 6701.958 3146.980 654.062 - Results Results: Laboratory Results WBC 15.7 x10^3/uL (4.8-10.8) H 07/25/21 04:30 RBC 3.42 10^6/uL (4.70-6.10) L 07/25/21 04:30 Hgb 10.9 g/dL (14.0-18.0) L 07/25/21 04:30 Hct 33.7 % (42.0-52.0) L 07/25/21 04:30 MCV 98.5 fL (80.0-94.0) H 07/25/21 04:30 MCH 31.9 pg (27.0-31.0) H 07/25/21 04:30 MCHC 32.3 g/dL (32.0-36.0) 07/25/21 04:30 RDW 14.3 % (12.0-15.0) 07/25/21 04:30 Plt Count 269 10^3/uL (130-450) 07/25/21 04:30 MPV 10.9 fL (7.4-11.4) 07/25/21 04:30 Neut # (Auto) Not Reportable 07/25/21 04:30 Lymph # (Auto) Not Reportable 07/25/21 04:30 [place] # (Auto) Not Reportable 07/25/21 04:30 Eos # (Auto) Not Reportable 07/25/21 04:30 Baso # (Auto) Not Reportable 07/25/21 04:30 Absolute Nucleated RBC Not Reportable 07/25/21 04:30 Total Counted 100 07/25/21 04:30 Band Neuts % (Manual) 45 % (0-10) H 07/25/21 04:30 Abnorm Lymph % (Manual) 0 % 07/25/21 04:30 Nucleated RBC % Not Reportable 07/25/21 04:30 Neutrophils # (Manual) 14.1 10^3/uL (1.5-6.6) H 07/25/21 04:30 Lymphocytes # (Manual) 0.9 10^3/uL (1.5-3.5) L 07/25/21 04:30 Monocytes # (Manual) 0.6 10^3/uL (0.0-1.0) 07/25/21 04:30 Eosinophils # (Manual) 0.0 10^3/uL (0-0.7) 07/25/21 04:30 Basophils # (Manual) 0.0 10^3/uL (0-0.1) 07/25/21 04:30 Differential Comment MANUAL DIFFERENTIAL 07/25/21 04:30 Manual Slide Review Indicated 07/24/21 04:12 WBC Morphology NORMAL APPEARANCE (NORMAL) 07/25/21 04:30 Platelet Estimate NORMAL (130-450,000) (NORMAL) 07/25/21 04:30 Platelet Morphology NORMAL APPEARANCE (NORMAL) 07/25/21 04:30 RBC Morph Micro Appear NORMAL APPEARANCE (NORMAL) 07/25/21 04:30 Bld Gas Analysis Time 0200 07/24/21 01:56 Sample Site RIGHT RADIAL 07/24/21 01:56 ABG pH 7.29 (7.35-7.45) L 07/24/21 01:56 ABG pCO2 34 mmHg (34-45) 07/24/21 01:56 ABG pO2 41 mmHg (80-100) L* 07/24/21 01:56 ABG HCO3 16.2 mmol/L (22.0-26.0) L 07/24/21 01:56 ABG Total CO2 17.2 MMOL/L (21.0-29.0) L 07/24/21 01:56 ABG O2 Saturation 77 % (94-98) L* 07/24/21 01:56 ABG Base Excess -9.4 mmol/L (-2.0-3.0) L 07/24/21 01:56 Brooks Test POSITIVE 07/24/21 01:56 VBG pH 7.274 (7.31-7.41) L 07/23/21 11:19 Ionized Calcium 0.99 mmol/L (1.15-1.33) L 07/23/21 11:19 O2 Delivery Device OXYMASK 07/24/21 01:56 FiO2 10.00 07/24/21 01:56 Sodium 132 mmol/L (135-145) L 07/25/21 04:30 Potassium 5.5 mmol/L (3.5-5.0) H 07/25/21 04:30 Chloride 104 mmol/L (101-111) 07/25/21 04:30 Carbon Dioxide 15 mmol/L (21-32) L 07/25/21 04:30 Anion Gap 13.0 (6-13) 07/25/21 04:30 BUN 82 mg/dL (6-20) H* 07/25/21 04:30 Creatinine 5.5 mg/dL (0.6-1.2) H 07/25/21 04:30 Estimated GFR (MDRD) 10 (>89) L 07/25/21 04:30 Glucose 103 mg/dL (70-100) H 07/25/21 04:30 Lactic Acid 1.5 mmol/L (0.5-2.2) 07/24/21 01:17 Calcium 8.1 mg/dL (8.5-10.3) L 07/25/21 04:30 Ionized Calcium YES 07/23/21 11:19 Phosphorus 5.1 mg/dL (2.5-4.6) H 07/25/21 04:30 Magnesium 2.2 mg/dL (1.7-2.8) 07/25/21 04:30 Total Bilirubin 1.4 mg/dL (0.2-1.0) H 07/23/21 14:45 AST 28 IU/L (10-42) 07/23/21 14:45 ALT 15 IU/L (10-60) 07/23/21 14:45 Alkaline Phosphatase 33 IU/L (42-121) L 07/23/21 14:45 Troponin I High Sens 59.2 ng/L (2.3-19.7) H* 07/24/21 01:17 B-Natriuretic Peptide 221 pg/mL (5-100) H 07/24/21 04:12 Total Protein 5.7 g/dL (6.7-8.2) L 07/23/21 14:45 Albumin 2.3 g/dL (3.2-5.5) L 07/23/21 14:45 Globulin 3.4 g/dL (2.1-4.2) 07/23/21 14:45 Albumin/Globulin Ratio 0.7 (1.0-2.2) L 07/23/21 14:45 Nasal Adenovirus (PCR) NOT DETECTED 07/25/21 03:15 Nasal B. parapertussis DNA (PCR) NOT DETECTED 07/25/21 03:15 Nasal Coronavir 229E PCR NOT DETECTED 07/25/21 03:15 Nasal Coronavir HKU1 PCR NOT DETECTED 07/25/21 03:15 Nasal Coronavir NL63 PCR NOT DETECTED 07/25/21 03:15 Nasal Coronavir OC43 PCR NOT DETECTED 07/25/21 03:15 Nasal Enterovir/Rhinovir PCR NOT DETECTED 07/25/21 03:15 Nasal Influenza B PCR NOT DETECTED 07/25/21 03:15 Nasal Influenza A PCR NOT DETECTED 07/25/21 03:15 Nasal Parainfluen 1 PCR NOT DETECTED 07/25/21 03:15 Nasal Parainfluen 2 PCR NOT DETECTED 07/25/21 03:15 Nasal Parainfluen 3 PCR NOT DETECTED 07/25/21 03:15 Nasal Parainfluen 4 PCR NOT DETECTED 07/25/21 03:15 Nasal RSV (PCR) NOT DETECTED 07/25/21 03:15 Nasal Screen MRSA (PCR) NEGATIVE (NEGATIVE) 07/23/21 11:01 Nasal B.pertussis DNA PCR NOT DETECTED 07/25/21 03:15 Nasal C.pneumoniae (PCR) NOT DETECTED 07/25/21 03:15 [place] Human Metapneumo PCR NOT DETECTED 07/25/21 03:15 Nasal M.pneumoniae (PCR) NOT DETECTED 07/25/21 03:15 Nasal SARS-CoV-2 (PCR) NOT DETECTED 07/25/21 03:15 - Procedures Procedures: Procedures CHOLECYSTECTOMY (05/22/13) CLOSED ENDOSCOPIC BIOPSY OF LARGE INTESTINE (12/28/12) COLONOSCOPY (07/12/14) ENDOSC POLYPECTOMY OF LG INTEST (12/28/12) EXCISION OF DUODENUM, ENDO, DIAGN (09/07/19) EXCISION OF ESOPHAGOGASTRIC JUNCTION, ENDO, DIAGN (09/07/19) EXCISION OF STOMACH, ENDO, DIAGN (09/07/19) INJECT/INFUSE NEC (12/28/12) INSPECTION OF LOWER INTESTINAL TRACT, ENDO (09/07/19) OPEN AND OTHER RIGHT HEMICOLECTOMY (05/22/13) REPOSITION LEFT RADIUS WITH INT FIX, OPEN APPROACH (12/21/17)
[2021-07-25] MEDS ORDERED: DEXTROSE 50% ABBOJECT 25 GM/50 ML SYRINGE IVP ONE (07:15)
[2021-07-25] MEDS ORDERED: INSULIN REGULAR HUMAN 300 UNIT/3 ML VIAL IVP ONE (07:15)
[2021-07-25] MEDS ORDERED: FUROSEMIDE 40 MG/4 ML VIAL IVP STA (07:40)
[2021-07-25 07:50] LABS: ABG BASE EXCESS -12.4 mmol/L (-2.0-3.0); ABG HCO3 15.1 mmol/L (22.0-26.0); ABG PCO2 40 mmHg (34-45); ABG TCO2 16.3 MMOL/L (21.0-29.0)
[2021-07-25 07:51] LABS: ALLEN TEST POSITIVE
[2021-07-25 08:26] LABS: ABG OXYGEN SATURATION 80 % (94-98); ABG PH 7.19 (7.35-7.45); ABG PO2 46 mmHg (80-100)
[2021-07-25] MEDS ORDERED: PROPOFOL 1000 MG/100 ML 1,000 MG/100 ML BOTTLE IV SCH (09:00)
[2021-07-25] MEDS: DOCUSATE SODIUM 100 MG CAPSULE PO SCH (09:28)
[2021-07-25] MEDS: ENOXAPARIN 40 MG/0.4 ML SYRINGE SUBQ SCH (09:28)
[2021-07-25] MEDS: NICOTINE 7 MG PATCH TOP SCH (09:28)
[2021-07-25] MEDS: MINERAL OIL 473 ML BOTTLE PO SCH (09:29)
[2021-07-25] MEDS: GABAPENTIN 300 MG CAPSULE PO SCH (09:29)
--- NOTE | 2021-07-25 09:34 | XRAY Report ---
PROCEDURE: Post ET Tube 1V CXR INDICATIONS: post intubation TECHNIQUE: One view of the chest was acquired. COMPARISON: 07/24/2021. FINDINGS: Surgical changes and devices: Central venous catheter is stable in position. ET tube is in place whic h projects 4.5 cm superior to the raymon.. Lungs and pleura: Small bilateral pleural fluid collections. Increasing opacification noted in the adrian ngs bilaterally left greater than right. Mediastinum: Mediastinal contours appear normal. Heart size is normal. Bones and chest wall: No suspicious bony lesions. Overlying soft tissues appear unremarkable. IMPRESSION: 1. ET tube 4.5 cm. 2. Small bilateral pleural effusions. 3. Increasing bilateral lung opacification, right greater than left concerning for multilobar pneumon ia and/or pulmonary edema. Reviewed by: Emily Saba MD, PhD on 07/25/2021 9:33 AM PST Approved by: Emily Saba MD, PhD on 07/25/2021 9:33 AM [facility] Station ID: [id number]
--- NOTE | 2021-07-25 09:51 | ANESTHESIA PROCEDURE NOTE ---
Anesthesia Intubation Template - Intubation Blade: positive: Pollack Tube: Size-enter number (8.0), Cuffed, Marked at teeth-enter cm (27) Route: Oral (grade 1 view with Pollack. Patient pe-oxygenated with 100% NRB sats in the 80's, to vent by RT. CXR showes ETT in good position. #16 OGT placed by be. Meds given Propofol 50 mg and Rocuronium 50mg.) Placement Confirmation: End tidal CO2, Direct visualization, Bilateral breath sounds Complications: No complications
[2021-07-25 09:55] LABS: ABG HCO3 14.6 mmol/L (22.0-26.0); ABG PCO2 53 mmHg (34-45); ABG PO2 106 mmHg (80-100)
[2021-07-25 09:56] LABS: ABG BASE EXCESS -15.5 mmol/L (-2.0-3.0); ABG TCO2 16.2 MMOL/L (21.0-29.0)
[2021-07-25 09:57] LABS: ABG MODE OF VENTILATION ASSIST/CONTROL; ABG OXYGEN SATURATION 97 % (94-98); ALLEN TEST POSITIVE
[2021-07-25 09:58] LABS: ABG RESPIRATORY RATE 16 b/min
[2021-07-25 10:02] LABS: ABG PH 7.06 (7.35-7.45)
--- NOTE | 2021-07-25 10:19 | PROVIDER PROGRESS NOTE ---
Subjective - General Admit Date: 07/21/21 Procedure Date: 07/21/21 Post Op Days: 4 Procedure Performed: Laparoscopic ventral hernia repair - Review of Systems Wound/Incisions: positive: Other (Bruising is apparent. Wounds are closed. Drainage on the dressings last evening has stopped this morning.) Gastrointestinal: positive: Other (Abdomen is bruised knotting consistent with w here the mesh has been tacked into place. He does have hypoactive bowel tones. There is palpable seroma on the surface of the mesh but not unexpected in the situation. No leaking from any of the incisions. No evidence of erythema.) - Other Other Information/Narrative: Has gotten progressively worse over night. CT yesterday showed some ascites fluid but no air. No evidence of bowel obstruction and no hydronephrosis. Bilateral small pleural effussions and possible bilateral pneumonia. Acidotic and hypoxic this AM and required intubation. Has produced a very small amount of urine over night. Remains on Paramjit for blood pressure support. Told me yest juancarlos that Alex Romero could make decisions for him. Plan for transfer FRAN. Dr. Thompson has worked tirelessly to find a facility that can accomodate dialysis. Objective - Patient Data Reviewed Vital Signs: Yes Vital Signs: Vital Signs x48h Temp Pulse Pulse Resp BP Pulse Ox 07/25/21 10:00 98 22 90/55 L 89 L 07/25/21 09:56 99 07/25/21 09:45 103 H 16 90/59 L 93 07/25/21 09:30 104 H 16 101/62 90 L 07/25/21 09:15 100 16 105/64 92 07/25/21 09:00 104 H 16 105/64 93 07/25/21 08:59 106 H 07/25/21 08:50 106 H 16 106/61 94 07/25/21 08:45 105 H 16 103/67 93 07/25/21 08:40 100 16 86/63 L 90 L 07/25/21 08:38 105 H 16 102/59 L 91 L 07/25/21 08:36 103 H 16 87/61 L 91 L 07/25/21 08:35 105 H 50/39 L 90 L 07/25/21 08:34 100 96/52 L 90 L 07/25/21 08:33 104 H 90/55 L 90 L 07/25/21 08:30 114 H 95/63 88 L 07/25/21 08:25 109 H 22 93/51 L 88 L 07/25/21 08:20 114 H 25 H 122/62 86 L 07/25/21 08:15 114 H 26 H 103/61 90 L 07/25/21 08:10 113 H 28 H 111/60 83 L 07/25/21 08:00 37.1 C 114 H 27 H 115/65 85 L 07/25/21 07:55 112 H 28 H 83 L 07/25/21 07:45 113 H 28 H 109/60 84 L 07/25/21 07:40 110 H 30 H 111/86 H 86 L 07/25/21 07:00 102 H 24 105/64 87 L 07/25/21 06:00 104 H 19 94/64 90 L 07/25/21 05:00 103 H 21 97/61 92 07/25/21 04:00 104 H 20 102/84 H 87 L 07/25/21 03:00 107 H 22 95/59 L 86 L Intake & Output: Intake and Output Totals x24h 07/23/21 07/24/21 07/25/21 23:59 23:59 23:59 Intake Total 7311.958 3289.980 777.062 Output Total 610 143 103 Balance 6701.958 3146.980 674.062 - Lab Results Lab Results: 07/25/21 04:30 07/25/21 04:30 Other Lab Results: Lab Results x24hrs 07/25/21 07/25/21 07/25/21 Range/Units 09:40 07:46 07:40 WBC (4.8-10.8) x10^3/uL RBC (4.70-6.10) 10^6/uL Hgb (14.0-18.0) g/dL Hct (42.0-52.0) % MCV (80.0-94.0) fL MCH (27.0-31.0) pg MCHC (32.0-36.0) g/dL RDW (12.0-15.0) % Plt Count (130-450) 10^3/uL MPV (7.4-11.4) fL Neut # (Auto) Lymph # (Auto) [place] # (Auto) Eos # (Auto) Baso # (Auto) Absolute Nucleated RBC Total Counted Band Neuts % (Manual) (0 - 10) % Abnorm Lymph % (Manual) % Nucleated RBC % Neutrophils # (Manual) (1.5-6.6) 10^3/uL Lymphocytes # (Manual) (1.5-3.5) 10^3/uL Monocytes # (Manual) (0.0-1.0) 10^3/uL Eosinophils # (Manual) (0-0.7) 10^3/uL Basophils # (Manual) (0-0.1) 10^3/uL Differential Comment WBC Morphology (NORMAL) Platelet Estimate (NORMAL) Platelet Morphology (NORMAL) RBC Morph Micro Appear (NORMAL) Bld Gas Analysis Time [id number] Sample Site RIGHT RADIAL RIGHT RADIAL ABG pH 7.06 L* 7.19 L* (7.35-7.45) ABG pCO2 53 H 40 (34-45) mmHg ABG pO2 106 H 46 L* (80-100) mmHg ABG HCO3 14.6 L 15.1 L (22.0-26.0) mmol/L ABG Total CO2 16.2 L 16.3 L (21.0-29.0) MMOL/L ABG O2 Saturation 97 80 L* (94-98) % ABG Base Excess -15.5 L -12.4 L (-2.0-3.0) mmol/L Brooks Test POSITIVE POSITIVE Respiration Rate 16 b/min O2 Delivery Device VENTILATOR OXYMASK O2 Liters/Min 15.00 LPM Vent Mode ASSIST/CONTROL FiO2 100.00 Tidal Volume 500 mL Sodium (135-145) mmol/L Potassium (3.5-5.0) mmol/L Chloride (101-111) mmol/L Carbon Dioxide (21-32) mmol/L Anion Gap (6-13) BUN (6-20) mg/dL Creatinine (0.6-1.2) mg/dL Estimated GFR (MDRD) (>89) Glucose (70-100) mg/dL POC Whole Bld Glucose 100 (70 - 100) mg/dL Calcium (8.5-10.3) mg/dL Phosphorus (2.5-4.6) mg/dL Magnesium (1.7-2.8) mg/dL Nasal Adenovirus (PCR) Nasal B. parapertussis DNA (PCR) Nasal Coronavir 229E PCR Nasal Coronavir HKU1 PCR Nasal Coronavir NL63 PCR Nasal Coronavir OC43 PCR Nasal Enterovir/Rhinovir PCR Nasal Influenza B PCR Nasal Influenza A PCR Nasal Parainfluen 1 PCR Nasal Parainfluen 2 PCR Nasal Parainfluen 3 PCR Nasal Parainfluen 4 PCR Nasal RSV (PCR) Nasal B.pertussis DNA PCR Nasal C.pneumoniae (PCR) [place] Human Metapneumo PCR Nasal M.pneumoniae (PCR) Nasal SARS-CoV-2 (PCR) 07/25/21 07/25/21 07/25/21 Range/Units 04:30 04:30 04:30 WBC 15.7 H (4.8-10.8) x10^3/uL RBC 3.42 L (4.70-6.10) 10^6/uL Hgb 10.9 L (14.0-18.0) g/dL Hct 33.7 L (42.0-52.0) % MCV 98.5 H (80.0-94.0) fL MCH 31.9 H (27.0-31.0) pg MCHC 32.3 (32.0-36.0) g/dL RDW 14.3 (12.0-15.0) % Plt Count 269 (130-450) 10^3/uL MPV 10.9 (7.4-11.4) fL Neut # (Auto) Not Reportable Lymph # (Auto) Not Reportable [place] # (Auto) Not Reportable Eos # (Auto) Not Reportable Baso # (Auto) Not Reportable Absolute Nucleated RBC Not Reportable Total Counted 100 Band Neuts % (Manual) 45 H (0 - 10) % Abnorm Lymph % (Manual) 0 % Nucleated RBC % Not Reportable Neutrophils # (Manual) 14.1 H (1.5-6.6) 10^3/uL Lymphocytes # (Manual) 0.9 L (1.5-3.5) 10^3/uL Monocytes # (Manual) 0.6 (0.0-1.0) 10^3/uL Eosinophils # (Manual) 0.0 (0-0.7) 10^3/uL Basophils # (Manual) 0.0 (0-0.1) 10^3/uL Differential Comment MANUAL DIFFERENTIAL WBC Morphology NORMAL APPEARANCE (NORMAL) Platelet Estimate NORMAL (130-450,000) (NORMAL) Platelet Morphology NORMAL APPEARANCE (NORMAL) RBC Morph Micro Appear NORMAL APPEARANCE (NORMAL) Bld Gas Analysis Time Sample Site ABG pH (7.35-7.45) ABG pCO2 (34-45) mmHg ABG pO2 (80-100) mmHg ABG HCO3 (22.0-26.0) mmol/L ABG Total CO2 (21.0-29.0) MMOL/L ABG O2 Saturation (94-98) % ABG Base Excess (-2.0-3.0) mmol/L Brooks Test Respiration Rate b/min O2 Delivery Device O2 Liters/Min LPM Vent Mode FiO2 Tidal Volume mL Sodium 132 L (135-145) mmol/L Potassium 5.5 H (3.5-5.0) mmol/L Chloride 104 (101-111) mmol/L Carbon Dioxide 15 L (21-32) mmol/L Anion Gap 13.0 (6-13) BUN 82 H* (6-20) mg/dL Creatinine 5.5 H (0.6-1.2) mg/dL Estimated GFR (MDRD) 10 L (>89) Glucose 103 H (70-100) mg/dL POC Whole Bld Glucose (70 - 100) mg/dL Calcium 8.1 L (8.5-10.3) mg/dL Phosphorus 5.1 H (2.5-4.6) mg/dL Magnesium 2.2 (1.7-2.8) mg/dL Nasal Adenovirus (PCR) Nasal B. parapertussis DNA (PCR) Nasal Coronavir 229E PCR Nasal Coronavir HKU1 PCR Nasal Coronavir NL63 PCR Nasal Coronavir OC43 PCR Nasal Enterovir/Rhinovir PCR Nasal Influenza B PCR Nasal Influenza A PCR Nasal Parainfluen 1 PCR Nasal Parainfluen 2 PCR Nasal Parainfluen 3 PCR Nasal Parainfluen 4 PCR Nasal RSV (PCR) Nasal B.pertussis DNA PCR Nasal C.pneumoniae (PCR) [place] Human Metapneumo PCR Nasal M.pneumoniae (PCR) Nasal SARS-CoV-2 (PCR) 07/25/21 Range/Units 03:15 WBC (4.8-10.8) x10^3/uL RBC (4.70-6.10) 10^6/uL Hgb (14.0-18.0) g/dL Hct (42.0-52.0) % MCV (80.0-94.0) fL MCH (27.0-31.0) pg MCHC (32.0-36.0) g/dL RDW (12.0-15.0) % Plt Count (130-450) 10^3/uL MPV (7.4-11.4) fL Neut # (Auto) Lymph # (Auto) [place] # (Auto) Eos # (Auto) Baso # (Auto) Absolute Nucleated RBC Total Counted Band Neuts % (Manual) (0 - 10) % Abnorm Lymph % (Manual) % Nucleated RBC % Neutrophils # (Manual) (1.5-6.6) 10^3/uL Lymphocytes # (Manual) (1.5-3.5) 10^3/uL Monocytes # (Manual) (0.0-1.0) 10^3/uL Eosinophils # (Manual) (0-0.7) 10^3/uL Basophils # (Manual) (0-0.1) 10^3/uL Differential Comment WBC Morphology (NORMAL) Platelet Estimate (NORMAL) Platelet Morphology (NORMAL) RBC Morph Micro Appear (NORMAL) Bld Gas Analysis Time Sample Site ABG pH (7.35-7.45) ABG pCO2 (34-45) mmHg ABG pO2 (80-100) mmHg ABG HCO3 (22.0-26.0) mmol/L ABG Total CO2 (21.0-29.0) MMOL/L ABG O2 Saturation (94-98) % ABG Base Excess (-2.0-3.0) mmol/L Brooks Test Respiration Rate b/min O2 Delivery Device O2 Liters/Min LPM Vent Mode FiO2 Tidal Volume mL Sodium (135-145) mmol/L Potassium (3.5-5.0) mmol/L Chloride (101-111) mmol/L Carbon Dioxide (21-32) mmol/L Anion Gap (6-13) BUN (6-20) mg/dL Creatinine (0.6-1.2) mg/dL Estimated GFR (MDRD) (>89) Glucose (70-100) mg/dL POC Whole Bld Glucose (70 - 100) mg/dL Calcium (8.5-10.3) mg/dL Phosphorus (2.5-4.6) mg/dL Magnesium (1.7-2.8) mg/dL Nasal Adenovirus (PCR) NOT DETECTED Nasal B. parapertussis DNA (PCR) NOT DETECTED Nasal Coronavir 229E PCR NOT DETECTED Nasal Coronavir HKU1 PCR NOT DETECTED Nasal Coronavir NL63 PCR NOT DETECTED Nasal Coronavir OC43 PCR NOT DETECTED Nasal Enterovir/Rhinovir PCR NOT DETECTED Nasal Influenza B PCR NOT DETECTED Nasal Influenza A PCR NOT DETECTED Nasal Parainfluen 1 PCR NOT DETECTED Nasal Parainfluen 2 PCR NOT DETECTED Nasal Parainfluen 3 PCR NOT DETECTED Nasal Parainfluen 4 PCR NOT DETECTED Nasal RSV (PCR) NOT DETECTED Nasal B.pertussis DNA PCR NOT DETECTED Nasal C.pneumoniae (PCR) NOT DETECTED [place] Human Metapneumo PCR NOT DETECTED Nasal M.pneumoniae (PCR) NOT DETECTED Nasal SARS-CoV-2 (PCR) NOT DETECTED - Current Medications Current Medications: Current Medications Generic Name Dose Route Start Last Admin Trade Name Freq PRN Reason Stop Dose Admin Allopurinol 100 mg 07/22/21 09:00 07/23/21 08:07 Allopurinol 100 Mg Tablet PO 100 mg DAILY ADELA Administration Docusate Sodium 200 mg 07/22/21 09:00 07/25/21 09:28 Docusate Sodium 100 Mg Capsule PO Not Given DAILY ADELA Enoxaparin Sodium 40 mg 07/23/21 09:00 07/25/21 09:28 Enoxaparin 40 Mg/0.4 Ml Syringe SUBQ 40 mg DAILY ADELA Administration Gabapentin 300 mg 07/22/21 14:00 07/25/21 09:29 Gabapentin 300 Mg Capsule PO Not Given BID ADELA Cefazolin Sodium 1 gm/ Sodium 100 mls @ 200 mls/hr 07/23/21 14:00 07/25/21 02:35 Chloride IV Infused Q12H A[facility]LA Infusion Norepinephrine Bitartrate 8 mg 250 mls @ 15 mls/hr 07/23/21 16:00 07/25/21 06:00 / Dextrose IV 8 mcg/min .[id number] ADELA 15 mls/hr Titration Protocol 8 MCG/MIN Sodium Chloride 1,000 mls @ 60 mls/hr 07/24/21 06:00 07/25/21 06:00 Normal Saline 0.9% IV 60 mls/hr .[id number] A[facility]LA Infusion Acetaminophen 100 mls @ 400 mls/hr 07/24/21 14:13 07/24/21 14:45 Ofirmev IV Infused Q6HR PRN Infusion Pain or Fever > 38C (100.4F) Metronidazole 500 mg in 100 mls @ 100 mls/hr 07/24/21 20:00 07/25/21 05:00 Flagyl 500 Mg/100 Ml IV Infused Q8H A[facility] Infusion Lorazepam 1 mg 07/23/21 15:32 07/23/21 23:29 Lorazepam 2 Mg/Ml Vial IVP 1 mg Q30M PRN Administration CIWA >8 Protocol Mineral Oil 30 ml 07/22/21 09:00 07/25/21 09:29 Mineral Oil 473 Ml Bottle PO Not Given DAILY ADELA Nicotine 1 patch 07/22/21 09:00 07/25/21 09:28 Nicotine 7 Mg Patch TOP 1 patch DAILY ADELA Administration Oxycodone HCl 5 mg 07/21/21 14:32 07/24/21 21:08 Oxycodone 5 Mg Tablet PO 5 mg Q4HR PRN Administration PAIN Pantoprazole Sodium 40 mg 07/22/21 07:00 07/25/21 06:46 Pantoprazole 40 Mg Tablet PO 40 mg QDAC ADELA Administration Sodium Chloride 10 ml 07/21/21 17:00 07/25/21 09:29 Sodium Chloride Flush 0.9% 10 Ml Syringe IVP 10 ml 0100,0900,1700 ADELA Administration Sodium Chloride 10 ml 07/21/21 14:32 07/25/21 04:28 Sodium Chloride Flush 0.9% 10 Ml Syringe IVP 20 ml PRN PRN Administration NEEDED PER PROVIDER ORDERS - Physical Exam Comments/Other: Abdomen is soft and less distended than yesterday with very few bowel sounds. Scrotum is swollen now. Incisions are clean and dry. ABX Reporting Has patient been on IV antibiotics over the past 48 hours?: Yes Impression/Plan - Problem List Problem List: 1. Ventral hernia - certainly i must acknowledge it is possible he has an intra- abdominal injury but I have no objective evidence other than the renal failure. The CT showed some ascites but no air. The operation involved very little bowel manipulation and, though it is not impossible, bowel injury is a less likely possibility. Checking Lactate this AM 2. Oliguric now becoming anuric renal failure. Baseline creat of 1.5 outside the hospital. No history of renal insufficiency. Significant metabolic acidosis now and on ventilator to help with management. 3. COPD/Pneumonia- has a long history of pipe smoking. Doesn't help the situation. Continuing antibiotics for pneumonia.
[2021-07-25 11:16] LABS: ABG HCO3 14.7 mmol/L (22.0-26.0); ABG PCO2 52 mmHg (34-45); ABG PO2 60 mmHg (80-100)
[2021-07-25 11:17] LABS: ABG BASE EXCESS -15.2 mmol/L (-2.0-3.0); ABG TCO2 16.3 MMOL/L (21.0-29.0); ALLEN TEST POSITIVE
[2021-07-25 11:18] LABS: ABG MODE OF VENTILATION ASSIST/CONTROL; ABG RESPIRATORY RATE 22 b/min
[2021-07-25 11:21] LABS: ABG OXYGEN SATURATION 87 % (94-98); ABG PH 7.07 (7.35-7.45)
[2021-07-25] MEDS ORDERED: DOXYCYCLINE INJ 100 MG in SODIUM CHLORIDE 0.9% MINIBAG 100 ML IV SCH (13:00)
[2021-07-25 13:14] LABS: ABG BASE EXCESS -14.4 mmol/L (-2.0-3.0); ABG HCO3 13.3 mmol/L (22.0-26.0); ABG MODE OF VENTILATION ASSIST/CONTROL; ABG OXYGEN SATURATION 92 % (94-98); ABG PCO2 38 mmHg (34-45); ABG PO2 66 mmHg (80-100); ABG TCO2 14.4 MMOL/L (21.0-29.0); ALLEN TEST POSITIVE
[2021-07-25 13:15] LABS: ABG RESPIRATORY RATE 22 b/min
[2021-07-25 13:18] LABS: ABG PH 7.17 (7.35-7.45)
[2021-07-25 13:20] LABS: B. PARAPERTUSSIS- RESP PCR PAN NOT DETECTED; B. PERTUSSIS- RESP PCR PANEL NOT DETECTED; C. PNEUMONIAE- RESP PCR PANEL NOT DETECTED; CORONAVIRUS 229E-RESP PCR NOT DETECTED; CORONAVIRUS HKU1-RESP PCR NOT DETECTED; CORONAVIRUS NL63-RESP PCR NOT DETECTED; CORONAVIRUS OC43-RESP PCR NOT DETECTED; HUMAN METAPNEUMOVIRUS NOT DETECTED; INFLUENZA A- RESP PCR PANEL NOT DETECTED; INFLUENZA B - RESP PCR PANEL NOT DETECTED; M. PNEUMONIAE- RESP PCR PANEL NOT DETECTED; PARAINFLUENZA VIRUS 1 NOT DETECTED; PARAINFLUENZA VIRUS 2 NOT DETECTED; PARAINFLUENZA VIRUS 3 NOT DETECTED; PARAINFLUENZA VIRUS 4 NOT DETECTED; RHINOVIRUS/ENTEROVIRUS NOT DETECTED; RSV- RESP PCR PANEL NOT DETECTED; SARS-CoV-2 -RESP PCR PANEL NOT DETECTED
--- NOTE | 2021-07-25 14:48 | DISCHARGE SUMMARY ---
Discharge Summary Admit Date: 07/22/21 Discharge Date: 07/25/21 Discharging Provider: Zuleyka Thompson Primary Care Provider: Elizabeth Huggins Code Status: Attempt Resuscitation Condition at Discharge: Critical Discharge Disposition: 02 Transfer Acute Care Hosp Discharge Facility Name: [place], [place] - DIAGNOSES Admission Diagnoses: Hypovolemic shock Acute kidney injury with acute tubular necrosis Encephalopathy Ventral hernia Elevated troponin Alcohol abuse Gout Discharge Diagnoses with Status of Each Condition: Acute respiratory failure with hypoxia likely secondary to fluid overload and pneumonia: Patient is currently sedated and intubated. Currently on cefazolin, doxycycline and metronidazole. Being transferred to [facility] where it is expected that he will be seen by nephrology and potentially undergo hemodialysis. Healthcare associated pneumonia: Patient is currently sedated and intubated. Currently on cefazolin, doxycycline and metronidazole. Hypovolemic shock: Currently on Levophed. Status post aggressive IV hydration. Acute kidney injury with acute tubular necrosis: Likely due to hypovolemic shock. Patient is being transferred for further care to include nephrology consult and potentially hemodialysis. Encephalopathy: Due to medication. Currently sedated and intubated. Ventral hernia: Status post ventral hernia repair. Postop day #4. Elevated troponin: Due to demand ischemia from hypovolemic shock. Troponin was trended and unremarkable. 2D echocardiogram showed a preserved ejection fraction of 55 to 60%. Alcohol abuse: Patient was placed on CIWA protocol. Gout: Allopurinol held due to acute kidney injury - HPI History of Present Illness: Patient is 76-year-old male who underwent an elective laparoscopic ventral hernia repair on 07/21/[address] Jamee Bartlett. The surgery was unremarkable with m inimal estimated blood loss.Today 07/23/2021 the patient had very low blood pressure with systolics as low as 70s. As a result he was transferred to the ICU for closer monitoring and treatment and the hospitalist team was consulted. At bedside the patient was resting comfortably however he complained of severe abdominal pain especially with palpation. He denied dizziness, chest pain or dyspnea. He also denied nausea vomiting fever or chills. He is on clear liquid diet and since surgery has not had a bowel movement or flatulence. He also has very low urine output and urine is currently a dark christina in color - HOSPITAL COURSE Hospital Course: Patient was transferred to the ICU and aggressively hydrated with normal saline. On 07/23/2021 he received approximately 6 L of fluid. His systolic blood pressures stayed under 100. As a result he was started on Levophed. On 07/23/2021 his urine output was approximately 10mL/h for about 24 hours. The following 24 hours he was anuric. Despite IV hydration his creatinine steadily increased from a baseline of 1.5 up to 5.5 on the day of transfer. As a result of the aggressive IV hydration patient became rhonchorous and subsequently hypoxic requiring intubation. CT of the abdomen and pelvis was done to rule out renal obstruction. This was negative for an nephrolithiasis and hydronephrosis. However it showed consolidation in the lung bases raising concern for pneumonia. It also mentioned pleural effusion and ascites. Furthermore it raised the possibility of ileus versus early small bowel obstruction. On the day of transfer patient was postop surgery day #4. He has not had a bowel movement or flatulence to date. Patient's white blood cell count increased from 9.8 up to 13 and then 15.7. Patient had a fever on 07/24/2021. As a result blood cultures were drawn. The patient has been treated with cefazolin, metronidazole and doxycycline. Lactic acid was 1.4. Patient's last ABG showed a pH of 7.17, PCO2 38, PO2 66, bicarbonate 13.3. This was on assist control mode, respiration 22, FiO2 90%, tidal volume 580 and a PEEP of 10 She was presented to Dr[address] Nicolas Khan at [facility] in [facility]. He accepted the patient to his service. It is expected that the patient will be seen by nephrology and potentially undergo hemodialysis. - ALLERGIES Allergies/Adverse Reactions: Allergies Allergy/AdvReac Type Severity Reaction Status Date / Time No Known Drug Allergies Allergy Verified 06/17/21 09:49 - MEDICATIONS Home Medications: Ambulatory Orders Medication Instructions Recorded Confirmed Folic Acid 1 tab PO DAILY 12/28/12 07/21/21 allopurinoL [Allopurinol] 1 - 2 tab PO DAILY 08/08/13 07/21/21 Amlodipine Besylate 10 mg PO DAILY 07/12/14 07/21/21 Ascorbic Acid [Vitamin C] 500 mg PO DAILY 07/14/21 07/21/21 Calcium Carbonate [Calcium] 600 mg PO DAILY 07/14/21 07/21/21 Cyanocobalamin (Vitamin B-12) 1,000 mcg PO DAILY 07/14/21 07/21/21 [Vitamin B-12] Lisinopril [Zestril] 20 mg PO DAILY 07/14/21 07/21/21 Cholecalciferol (Vitamin D3) 125 mcg PO DAILY 07/21/21 07/21/21 [Vitamin D3] - PHYSICAL EXAM AT DISCHARGE General Appearance: positive: Other (Sedated and Intubated) Eyes Bilateral: positive: PERRL, EOMI ENT: positive: No signs of dehydration Neck: positive: No JVD, Trachea midline Respiratory: positive: Rhonchi Cardiovascular: positive: Regular rate & rhythm, No murmur Abdomen: positive: Tenderness (Tender to palpation), Other (Surgical site appreciable. Abdomen firm. Decreased bowel sounds) Back: positive: Nml inspection Skin: positive: Color nml, No rash, Warm, Dry Extremities: positive: Non-tender, Full ROM, Nml appearance, No pedal edema Neurologic/Psychiatric: positive: Other (sedated and intubated) Physical Exam Other/Comments: Scrotal edema - LABS Result Diagrams: 07/25/21 04:30 07/25/21 04:30 - TIME SPENT Time Spent in Discharge (Minutes): 45
--- NOTE | 2021-07-25 14:53 | Discharge Plan ---
Discharge Plan Problem Reviewed?: Yes Disposition: 02 Transfer Acute Care Hosp Condition: Critical Health Concerns: Patient was admitted on 07/21/2021 for an elective laparoscopic ventral hernia repair. Surgery was unremarkable with minimal blood loss. On 07/23/2021 patient had very low blood pressures in the distributor publications with systolic blood pressures as low as 70s. He was transferred to the ICU and received aggressive IV hydration. Despite this fluids blood pressure was still low so he was started on Levophed. Patient's baseline creatinine is between 1.4 and 1.6. Over the cause of 36 hours creatinine steadily increased to 5.5. Initially the patient was oliguric producing approximately 10 mL of urine every hour. The urine was christina to dark in color. Over the past 24 hours the patient has become anuric. Due to aggressive IV hydration the patient became rhonchorous and subsequently hypoxic requiring intubation. He is currently being sedated with propofol. Patient was presented to Dr. Nicolas Khan at [facility] in [facility] who was agreeable to have the patient on their service. It is expected that the patient would be seen by nephrology for potential hemodialysis. CT of the abdomen pelvis reported consolidation in the lung bases concerning for pneumonia. Patient's white count increased from 9.8-15.7. He is currently on cefazolin, doxycycline and metronidazole. The patient was airlifted to [facility]. No Smoking: If you smoke, Please STOP! Call for help. Follow-up with: Elizabeth Huggins ARNP [Primary Care Provider] -
[2021-07-25] MEDS ORDERED: ROCURONIUM 50 MG/5 ML VIAL ONE (15:06)
[2021-07-25] MEDS ORDERED: PROPOFOL 200 MG/20 ML VIAL IVP ONE (15:07)
[2021-07-25 15:46] VITALS: BP 101/69
== END 2021-07-25 15:30 | disposition short-term general hospital (02) | DRG 393 ==
LOC: SDS 10:43 → MS2 14:32 → ICU 07-23 10:21
PROVIDERS: ADMIT Surgery; ATTEND Internal Medicine
PROC: 02HV33Z Insertion of Infusion Device into Superior Vena Cava, Percutaneous Approach (ICD-10-PCS; principal; 2021-07-23)
DX: K43.2 Incisional hernia without obstruction or gangrene (principal); R57.1 Hypovolemic shock; N17.0 Acute kidney failure with tubular necrosis; J96.01 Acute respiratory failure with hypoxia; J18.9 Pneumonia, unspecified organism; G93.40 Encephalopathy, unspecified; L76.34 Postprocedural seroma of skin and subcutaneous tissue following other procedure; J44.0 Chronic obstructive pulmonary disease with (acute) lower respiratory infection; R77.8 Other specified abnormalities of plasma proteins; F10.10 Alcohol abuse, uncomplicated; F17.290 Nicotine dependence, other tobacco product, uncomplicated; M10.9 Gout, unspecified; I10 Essential (primary) hypertension; K59.00 Constipation, unspecified; R33.9 Retention of urine, unspecified; Z20.822 Contact with and (suspected) exposure to COVID-19; Z79.899 Other long term (current) drug therapy; Z98.890 Other specified postprocedural states
CPT/HCPCS: 36415; 36600; 49654; 70450; 71045; 74176; 80048; 80053; 82330; 82803; 83605; 83735; 83880; 84100; 84484; 85025; 87040; 87150; 87631; 93005; 93306; 94002; A9270; J0131; J0690; J1170; J1650; J1815; J2060; J7120; 0202U; 94770

== ENCOUNTER 2021-12-25 12:27 | Outpatient (CLI) | payer MEDICARE ==
[2021-12-25 14:10] LABS: HCT - HEMATOCRIT 38.5 % (42.0-52.0); HGB - HEMOGLOBIN 12.4 g/dL (14.0-18.0); MEAN CORPUSCULAR HGB CONC 32.2 g/dL (32.0-36.0); MEAN PLATELET VOLUME 10.2 fL (7.4-11.4); RED BLOOD COUNT 4.28 10^6/uL (4.70-6.10); RED CELL DISTRIBUTION WIDTH 15.5 % (12.0-15.0); WHITE BLOOD COUNT 5.6 x10^3/uL (4.8-10.8)
[2021-12-25 14:15] LABS: CALCIUM 9.7 mg/dL (8.5-10.3); POTASSIUM 4.2 mmol/L (3.5-5.0)
[2021-12-25 15:21] LABS: CREATININE 1.3 mg/dL (0.6-1.2)
== END 2021-12-25 12:28 | disposition home or self-care (01) ==
LOC: LAB.S 12:27 → DI 12-27 09:00
PROVIDERS: ATTEND Surgery
DX: R10.31 Right lower quadrant pain (principal)
CPT/HCPCS: 36415; 80048; 85027

== ENCOUNTER 2021-12-27 09:00 | Outpatient (CLI) | payer MEDICARE ==
[2021-12-27] MEDS ORDERED: IOVERSOL 320 100 ML VIAL IVP ONE (09:36)
[2021-12-27] MEDS ORDERED: IOVERSOL 320 50 ML VIAL PO ONE (09:37)
--- NOTE | 2021-12-27 12:16 | CT Report ---
PROCEDURE: CT abdomen pelvis with contrast INDICATIONS: 76-year-old male with two-month history right lower quadrant pain, constipation CONTRAST: IV CONTRAST: Optiray 320 ml: 100 PO CONTRAST: Isovue 300 ml50 TECHNIQUE: After the administration of contrast, 5 mm thick sections acquired from the diaphragms to the sym physis. 5 mm thick coronal and sagittal reformats were acquired. For radiation dose reduction, the following was used: automated exposure control, adjustment of mA and/or kV according to patient size . COMPARISON: 07/24/2021 FINDINGS: Lower thorax: Minimal right basilar atelectasis and or infiltrate in the right middle lobe.. Heart s ize normal. No hiatal hernia. Liver: Normal in size and attenuation. No contour deformity present. Biliary system: Cholecystectomy. Pancreas: Unremarkable without mass or inflammation evident. Spleen: Normal in size and density. Adrenals: Normal morphology and density. Reproductive system: Unremarkable as visualized. Urinary system: Normal renal size and attenuation. Bilateral simple renal cysts with left renal atro phy or scarring present. No hydronephrosis. No renal calculi, hydronephrosis, or solid mass present. Urinary bladder unremarkable. Gastrointestinal system: The bowel appears unremarkable with no evidence of bowel obstruction or inf lammation. The stomach appears unremarkable. Appendix: No findings to suggest acute appendicitis. Probable appendectomy Peritoneal spaces: No mesenteric or retroperitoneal adenopathy. No free air. No free fluid. Vasculature: The IVC, aorta and iliac vasculature are unremarkable. Musculoskeletal: Normal bone mineralization. No acute fractures. Abdominal wall intact without deanna dence of ventral or inguinal hernias. 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 Cholecystectomy and probable appendectomy. No pericecal inflammation. Multilevel degenerative disc disease and arthropathy results in severe central stenosis at L4-5 Reviewed by: Konstantin Patel MD on 12/27/2021 11:15 AM MARIAN Approved by: Konstantin Patel MD on 12/27/2021 11:15 AM MARIAN Station ID: [id number]
== END 2021-12-27 23:59 | disposition home or self-care (01) ==
LOC: DI 09:00
PROVIDERS: ATTEND Surgery
DX: R10.31 Right lower quadrant pain (principal); Z90.49 Acquired absence of other specified parts of digestive tract; M47.816 Spondylosis without myelopathy or radiculopathy, lumbar region; M48.061 Spinal stenosis, lumbar region without neurogenic claudication; M51.36 Other intervertebral disc degeneration, lumbar region
CPT/HCPCS: 74177; Q9967; 36415; 80048; 85027

== ENCOUNTER 2022-09-16 08:08 | Outpatient (CLI) | payer MEDICARE ==
[2022-09-16 14:17] LABS: BASOPHILS % (AUTO) 0.4 %; EOSINOPHILS % (AUTO) 0.4 %; HCT - HEMATOCRIT 42.9 % (42.0-52.0); HGB - HEMOGLOBIN 13.5 g/dL (14.0-18.0); LYMPHOCYTES # (AUTO) 1.3 10^3/uL (1.5-3.5); LYMPHOCYTES % (AUTO) 24.8 %; MEAN CORPUSCULAR HEMOGLOBIN 30.5 pg (27.0-31.0); MEAN CORPUSCULAR HGB CONC 31.5 g/dL (32.0-36.0); MEAN CORPUSCULAR VOLUME 97.1 fL (80.0-94.0); MEAN PLATELET VOLUME 10.2 fL (7.4-11.4); MONOCYTES # (AUTO) 0.4 10^3/uL (0.0-1.0); MONOCYTES % (AUTO) 7.3 %; NEUTROPHILS # (AUTO) 3.4 10^3/uL (1.5-6.6); NEUTROPHILS % (AUTO) 66.9 %; PLT - PLATELET COUNT 265 10^3/uL (130-450); RED BLOOD COUNT 4.42 10^6/uL (4.70-6.10); RED CELL DISTRIBUTION WIDTH 14.1 % (12.0-15.0); WHITE BLOOD COUNT 5.1 x10^3/uL (4.8-10.8)
[2022-09-16 14:54] LABS: ALBUMIN 3.8 g/dL (3.2-5.5); ALBUMIN/GLOBULIN RATIO 0.8 (1.0-2.2); ALKALINE PHOSPHATASE 60 IU/L (42-121); ALT ALANINE AMINOTRANSFERASE 33 IU/L (10-60); AST ASPARTATE AMINOTRANSFERASE 21 IU/L (10-42); BILIRUBIN,TOTAL 0.7 mg/dL (0.2-1.0); BUN - BLOOD UREA NITROGEN 36 mg/dL (6-20); CALCIUM 10.8 mg/dL (8.5-10.3); CARBON DIOXIDE - CO2 27 mmol/L (21-32); CHLORIDE 106 mmol/L (101-111); CHOL/HDL RATIO 1.9 (<5.0); CHOLESTEROL 185 mg/dL; CREATININE 1.3 mg/dL (0.6-1.2); GFR - MDRD 54 (>89); GLUCOSE 89 mg/dL (70-100); HDL CHOLESTEROL 97 mg/dL; LDL CHOLESTEROL,CALCULATED 73 mg/dL; LDL/HDL RATIO 0.8 (<3.6); LIPASE 57 U/L (22-51); POTASSIUM 4.8 mmol/L (3.5-5.0); SODIUM 142 mmol/L (135-145); TOTAL PROTEIN 8.3 g/dL (6.7-8.2); TRIGLYCERIDES 74 mg/dL; VLDL CHOLESTEROL 15 mg/dL
== END 2022-09-16 08:09 | disposition home or self-care (01) ==
LOC: LAB.S 08:08
PROVIDERS: ATTEND Registered Nurse
DX: E78.5 Hyperlipidemia, unspecified (principal); Z79.899 Other long term (current) drug therapy; R10.11 Right upper quadrant pain
CPT/HCPCS: 36415; 80053; 80061; 83690; 83721; 85025

== ENCOUNTER 2022-09-22 12:15 | Outpatient (CLI) | payer MEDICARE ==
[2022-09-22 15:17] LABS: CREATININE 1.5 mg/dL (0.6-1.2)
== END 2022-09-22 12:16 | disposition home or self-care (01) ==
LOC: LAB.S 12:15
PROVIDERS: ATTEND Registered Nurse
DX: E78.5 Hyperlipidemia, unspecified (principal); R10.11 Right upper quadrant pain; R10.31 Right lower quadrant pain; E83.52 Hypercalcemia; R89.9 Unspecified abnormal finding in specimens from other organs, systems and tissues; Z79.899 Other long term (current) drug therapy
CPT/HCPCS: 36415; 82330; 82565; 83970

== ENCOUNTER 2022-09-22 14:36 | Outpatient (CLI) | payer MEDICARE ==
[2022-09-22] MEDS ORDERED: iohexoL-300 100 ML VIAL ONE (14:40)
[2022-09-22] MEDS ORDERED: DIATRIZOATE MEGLU/DIATRIZO SOD 30 ML BOTTLE PO ONE (14:41)
--- NOTE | 2022-09-23 13:04 | CT Report ---
PROCEDURE: ABDOMEN/PELVIS W INDICATIONS: RLQ ABD PAIN, ABNORMAL LABS CONTRAST: 100ml Omnipaque 300 TECHNIQUE: After the administration of oral and intravenous contrast, 5 mm thick sections acquired from the diap hragms to the symphysis. 5 mm thick coronal and sagittal reformats were acquired. For radiation dos e reduction, the following was used: automated exposure control, adjustment of mA and/or kV accordin g to patient size. COMPARISON: CT abdomen pelvis 12/27/2021. FINDINGS: Visualized lung bases: No pleural effusion. Liver and biliary tree: No suspect focal hepatic lesion. No biliary ductal dilation. Gallbladder: Surgically absent. Spleen: Unremarkable. Pancreas: Unremarkable. Adrenal glands: Unremarkable. Kidneys and ureters: No hydronephrosis. Scattered renal cysts are present in addition to small hypode nsities which are too small to characterize but are statistically likely to represent benign cysts. Gastrointestinal tract and body wall: Ileocolonic anastomosis present in the right abdomen, possible right colectomy. A large amount of stool is present in the colon. Small bilateral inguinal hernias a re present. The right inguinal hernia contains fat and a loop of nondilated small bowel. The left ing uinal hernia contains fat. A loop of sigmoid colon is present adjacent to the neck of the left inguin al hernia but not within the hernia sac. No evidence of mechanical small bowel obstruction. Peritoneal cavity: No free air or free fluid. Bladder: Unremarkable. Pelvic organs: Unremarkable CT appearance. Vasculature: No abdominal aortic aneurysm. Musculoskeletal: Degenerative change of the spine. IMPRESSION: 1. A small right inguinal hernia is present containing fat and a loop of nondilated small bowel. No e vidence of mechanical small bowel obstruction at this time. 2. Small fat-containing left inguinal hernia also present. Reviewed by: Teto Minor MD on 09/23/2022 1:03 PM PST Approved by: Teto Minor MD on 09/23/2022 1:03 PM PST Station ID: [id number]
== END 2022-09-22 14:37 | disposition home or self-care (01) ==
LOC: DI 14:36
PROVIDERS: ATTEND Registered Nurse
DX: K40.20 Bilateral inguinal hernia, without obstruction or gangrene, not specified as recurrent (principal); E78.5 Hyperlipidemia, unspecified; R10.11 Right upper quadrant pain; R10.31 Right lower quadrant pain; E83.52 Hypercalcemia; R89.9 Unspecified abnormal finding in specimens from other organs, systems and tissues; Z79.899 Other long term (current) drug therapy
CPT/HCPCS: 36415; 74177; 82330; 82565; 83970; Q9963; Q9967

== ENCOUNTER 2022-09-30 07:37 | Outpatient (CLI) | payer MEDICARE ==
--- NOTE | 2022-09-30 22:31 | Ultrasound Report ---
PROCEDURE: Abdomen Complete INDICATIONS: RIGHT UPPER QUAD ABD PAIN TECHNIQUE: Real-time scanning was performed of the abdominal and retroperitoneal organs, with image documentatio n. COMPARISON: None. FINDINGS: Liver: Liver is normal in size and homogeneous in echotexture. Simple cyst is noted in the right lo be measuring 1.1 x 0.8 x 1.0 cm. Gallbladder: Absent. Biliary ducts: Intrahepatic bile ducts are non-dilated. Extrahepatic bile duct caliber measures 4.4 mm. Normal is 6-7 mm or less in diameter, or 10 mm or less post-cholecystectomy. Pancreas: Not visualized. Spleen: Spleen is normal in size and homogeneous in echotexture. Kidneys: Kidneys are normal in size and echotexture. Right kidney measures 11.1 cm long; left kidne y measures 11.4 cm long. No hydronephrosis or nephrolithiasis. No solid masses. Multiple simple cy sts are present bilaterally. A septated cyst is noted in the right kidney measuring 1.6 x 1.9 x 1.8 c m. Aorta: Visualized aorta is normal in caliber at less than 3 cm. Iliacs: Proximal common iliac arteries are normal in caliber at less than 2.5 cm. IVC: Intrahepatic inferior vena cava is patent. Miscellaneous: No free abdominal fluid. IMPRESSION: Bilateral simple renal as well as left hepatic lobe cyst. Septated right renal cyst. Reviewed by: Sherice Braswell MD on 09/30/2022 10:29 PM PST Approved by: Sherice Braswell MD on 09/30/2022 10:29 PM PST Station ID: [id number]
== END 2022-09-30 07:38 | disposition home or self-care (01) ==
LOC: DI 07:37
PROVIDERS: ATTEND Registered Nurse
DX: N28.1 Cyst of kidney, acquired (principal); K76.89 Other specified diseases of liver

== ENCOUNTER 2023-11-25 10:47 | Outpatient (CLI) | payer MEDICARE ==
[2023-11-25 14:22] LABS: BASOPHILS % (AUTO) 0.2 %; EOSINOPHILS % (AUTO) 0.2 %; HCT - HEMATOCRIT 39.3 % (42.0-52.0); HGB - HEMOGLOBIN 12.9 g/dL (14.0-18.0); LYMPHOCYTES # (AUTO) 1.1 10^3/uL (1.5-3.5); LYMPHOCYTES % (AUTO) 24.5 %; MEAN CORPUSCULAR HEMOGLOBIN 33.7 pg (27.0-31.0); MEAN CORPUSCULAR HGB CONC 32.8 g/dL (32.0-36.0); MEAN CORPUSCULAR VOLUME 102.6 fL (80.0-94.0); MONOCYTES # (AUTO) 0.6 10^3/uL (0.0-1.0); MONOCYTES % (AUTO) 14.3 %; NEUTROPHILS # (AUTO) 2.6 10^3/uL (1.5-6.6); NEUTROPHILS % (AUTO) 60.3 %; PLT - PLATELET COUNT 279 10^3/uL (130-450); RED BLOOD COUNT 3.83 10^6/uL (4.70-6.10); RED CELL DISTRIBUTION WIDTH 14.4 % (12.0-15.0); WHITE BLOOD COUNT 4.3 x10^3/uL (4.8-10.8)
[2023-11-25 14:48] LABS: ALBUMIN 3.9 g/dL (3.2-5.5); ALBUMIN/GLOBULIN RATIO 0.9 (1.0-2.2); ALKALINE PHOSPHATASE 56 IU/L (42-121); ALT ALANINE AMINOTRANSFERASE 17 IU/L (10-60); AST ASPARTATE AMINOTRANSFERASE 16 IU/L (10-42); BILIRUBIN,TOTAL 0.5 mg/dL (0.2-1.0); BUN - BLOOD UREA NITROGEN 30 mg/dL (6-20); CALCIUM 10.2 mg/dL (8.5-10.3); CARBON DIOXIDE - CO2 25 mmol/L (21-32); CHLORIDE 104 mmol/L (101-111); CHOL/HDL RATIO 1.8 (<5.0); CHOLESTEROL 227 mg/dL; CREATININE 1.4 mg/dL (0.6-1.3); GFR - MDRD 49 (>89); GLUCOSE 111 mg/dL (74-104); HDL CHOLESTEROL 128 mg/dL; LDL CHOLESTEROL,CALCULATED 79 mg/dL; LDL/HDL RATIO 0.6 (<3.6); POTASSIUM 4.9 mmol/L (3.5-4.5); SODIUM 135 mmol/L (135-145); TOTAL PROTEIN 8.2 g/dL (6.4-8.9); TRIGLYCERIDES 100 mg/dL (48-352); VLDL CHOLESTEROL 20 mg/dL
[2023-11-25 14:56] LABS: THYROID STIMULATING HORMONE 1.11 uIU/mL (0.34-5.60)
== END 2023-11-25 10:48 | disposition home or self-care (01) ==
LOC: LAB.S 10:47
PROVIDERS: ATTEND Registered Nurse
DX: Z13.228 Encounter for screening for other metabolic disorders (principal); Z13.220 Encounter for screening for lipoid disorders; Z13.0 Encounter for screening for diseases of the blood and blood-forming organs and certain disorders involving the immune mechanism; Z13.29 Encounter for screening for other suspected endocrine disorder
CPT/HCPCS: 36415; 80053; 80061; 83721; 84443; 85025